=== PATIENT | female | born 1965 | race Caucasian/White ===

== ENCOUNTER 2022-03-27 12:27 | Emergency (ER) | payer OTHER ==
[2022-03-27] MEDS ORDERED: Zofran 4 MG/2 ML VIAL IV ONE (12:49)
[2022-03-27] MEDS ORDERED: Sodium Chloride 0.9% 1000 ML 1,000 ML IV STA (12:49)
[2022-03-27] MEDS ORDERED: MORPHINE SULFATE 4 MG INJ IV ONE (12:49)
[2022-03-27] MEDS ORDERED: MORPHINE SULFATE 4 MG INJ ONE (12:55)
[2022-03-27] MEDS ORDERED: Zofran 4 MG/2 ML VIAL ONE (12:55)
[2022-03-27] MEDS ORDERED: Sodium Chloride 0.9% 1000 ML 1,000 ML ONE (12:55)
[2022-03-27 12:59] LABS: Absolute Neutrophil Ct (ANC) 3.51 x10^3/uL (1.4-6.9); Basophil (Absolute #) 0.06 x10^3/uL (0-0.4); Eosinophil (Absolute #) 0.15 x10^3/uL (0-0.5); Hematocrit 40.9 % (35-47); Hemoglobin 13.5 g/dL (12.0-16.0); Lymphocytes % 42.4 % (24.0-44.0); Mean Cell Volume 93.8 fL (78-100); Mean Platelet Volume 8.7 fL (7.5-11.0); Monocyte (Absolute #) 0.61 x10^3/uL (0.0-1.3); Monocytes % 8.1 % (0.0-12.0); Neutrophil % 46.6 % (36.0-66.0); Platelet Count 344 x10^3/uL (150-450); Red Blood Count 4.36 x10^6/uL (4.1-5.4); Red Cell Distribution Width 11.8 % (11.5-14.0); White Blood Count 7.5 x10^3/uL (4.0-10.5)
[2022-03-27 13:13] LABS: ALBUMIN 4.9 g/dL (3.5-5.0); ALKALINE PHOSPHATASE 83 U/L (38-126); ANION GAP 19.8 MEQ/L (5-15); BLOOD UREA NITROGEN 13 mg/dL (7-17); CHLORIDE 105 mmol/L (98-107); Calcium 9.8 mg/dL (8.4-10.2); Carbon Dioxide 21 mmol/L (22-30); Creatinine 1 0.75 mg/dL (0.52-1.04); EST GLOMERULAR FILTRATION RATE > 60.0 ML/MIN; Glucose 154 mg/dL (74-106); LIPASE 82 U/L (23-300); Potassium 4.4 mmol/L (3.5-5.1); SGOT/AST 30 U/L (14-36); SGPT/ALT 23 U/L (0-35); SODIUM 142 mmol/L (137-145); Total Protein 7.9 g/dL (6.3-8.2)
--- NOTE | 2022-03-27 13:27 | XRAY ---
Indication: Left upper abdomen pain. Multiple contiguous axial images obtained through the abdomen and pelvis without contrast. Comparison: None Lung bases demonstrates minimal bilateral dependent atelectasis and tiny lingula calcified granuloma. Heart not enlarged. Stomach distended with food/fluid. Noncontrasted stomach and bowel loops appear nonobstructed with normal appendix. Mild diffuse scattered colonic fecal debris throughout, greatest in the right hemicolon. Minimal sigmoid diverticulosis without diverticulitis. Gallbladder demonstrates at least 3 stones, largest 1.3 cm. Nonobstructing right renal punctate calculus and tiny hepatic/splenic calcified granulomas. No free fluid/air. Remaining liver, gallbladder, pancreas, spleen, adrenal glands, kidneys, ureters, and bladder are unremarkable for noncontrast exam. Mild scattered aortoiliac calcifications without AAA. Osseous structures intact with minimal degenerative changes throughout the thoracolumbar spine. No ventral or inguinal hernias. Impression: 1. Cholelithiasis better evaluated with sonogram if clinically warranted. 2. Mild diffuse fecal stasis, sigmoid diverticulosis, arteriosclerotic disease, degenerative spondylosis, and old granulomatous disease. 3. Remaining CT abdomen/pelvis without contrast exam is negative.
[2022-03-27 14:20] LABS: Bacteria RARE /HPF (NEGATIVE); WBC 0-2 /HPF (0-5)
[2022-03-27 14:21] LABS: Appearance CLEAR (CLEAR); Bilirubin NEGATIVE (NEGATIVE); Glucose NEGATIVE (NEGATIVE); Ketones NEGATIVE (NEGATIVE); Nitrite NEGATIVE (NEGATIVE); Ph 5.5 (5-6); Protein,Urine Dip NEGATIVE (Negative); RBC NEGATIVE Ery/ul (0-5); Specific Gravity >=1.030 (1.005-1.025); Urine Cultured Indicated? NO; Urobilinogen 0.2 mg/dL (0-1)
[2022-03-27 14:22] LABS: Dipstick done @ ? MAIN LAB
--- NOTE | 2022-03-27 14:44 | ERPHSYRPT ---
- History of Present Illness Time Seen by Provider: 03/27/22 12:34 Historian: patient Exam Limitations: no limitations Patient Subjective Stated Complaint: pt here for abd pain to upper left side off and on for a week Triage Nursing Assessment: pt alert, walked in, resp easy skin w/d/p, abd soft , face mask in place, had normal bm yesterday, voiding well, no n/v Physician History: 56 years old incarcerated female presented to the ER with chief complaint of left upper quadrant/flank rib 28-year-old third almost 30 minutes prior to arrival, constant moderate to severe sharp nonradiating with associated nausea but no vomiting diarrhea or constipation. Also report having off-and-on pain on the left side for almost 1 week. No fever or chills reported. Timing/Duration: today, constant, sudden, worse Activities at Onset: rest Quality: sharpness Abdominal Pain Onset Location: LUQ, flank Pain Radiation: no radiation Severity of Pain-Max: severe Severity of Pain-Current: severe Modifying Factors: Improves With: nothing Associated Symptoms: nausea Previous symptoms: same symptoms as today Allergies/Adverse Reactions: aspirin Allergy (Verified 03/27/22 12:40) gabapentin Allergy (Verified 03/27/22 12:40) naproxen Allergy (Verified 03/27/22 12:40) Penicillins Allergy (Verified 03/27/22 12:40) Hx Tetanus, Diphtheria Vaccination/Date Given: No Hx Influenza Vaccination/Date Given: Yes Hx Pneumococcal Vaccination/Date Given: Yes Immunizations Up to Date: Yes Travel Risk - International Travel Have you traveled outside of the country in past 3 weeks: No - Coronavirus Screening Are you exhibiting any of the following symptoms?: No Close contact with a COVID-19 positive Pt in past 14-21 Days: No - Vaccine Status Have you recieved a Covid-19 vaccination: No - Review of Systems Constitutional: No Symptoms Eyes: No Symptoms Ears, Nose, & Throat: No Symptoms Respiratory: No Symptoms Cardiac: No Symptoms Abdominal/Gastrointestinal: Abdominal Pain, Nausea Genitourinary Symptoms: No Symptoms Musculoskeletal: No Symptoms Skin: No Symptoms Neurological: No Symptoms Endocrine: No Symptoms Hematologic/Lymphatic: No Symptoms Immunological/Allergic: No Symptoms - Past Medical History Pertinent Past Medical History: Yes ENT History: Other Cardiac History: Hypertension Respiratory History: Asthma, COPD Other Medical History: cancer tongue, breast and urterin - Past Surgical History Past Surgical History: Yes Musculoskeletal: Orthopedic Surgery Female Surgical History: Hysterectomy Other Surgical History: knee , lumpectomy - Social History Smoking Status: Former smoker Exposure to second hand smoke: No Drug Use: none Patient Lives Alone: No (longterm) - Nursing Vital Signs Nursing Vital Signs: Initial Vital Signs Temperature 97.6 F 03/27/22 12:36 Pulse Rate 107 H 03/27/22 12:36 Respiratory Rate 18 03/27/22 12:36 Blood Pressure 111/89 03/27/22 12:36 O2 Sat by Pulse Oximetry 98 03/27/22 12:36 Pain Scale Pain Intensity 5 - Physical Exam General Appearance: no apparent distress, alert Eye Exam: PERRL/EOMI Ears, Nose, Throat Exam: normal ENT inspection Neck Exam: normal inspection, full range of motion Respiratory Exam: normal breath sounds, lungs clear Cardiovascular Exam: regular rate/rhythm, normal heart sounds Gastrointestinal/Abdomen Exam: soft, normal bowel sounds, tenderness (Left upper quadrant/flank), other (Negative Curiel sign) Back Exam: normal inspection, normal range of motion, No CVA tenderness Extremity Exam: normal inspection, normal range of motion Neurologic Exam: alert, oriented x 3, cooperative Skin Exam: normal color SpO2 Interpretation: normal SpO2: 96 O2 Delivery: Room Air Ordered Tests: Active Orders 24 hr Category Date Time Status IV Insertion STAT Care 03/27/22 12:49 Active NPO (ED) STAT Care 03/27/22 12:49 Active ABDOMEN AND PELVIS W/0 CONTRAS [CT] Stat Exams 03/27/22 13:11 Completed CBC W DIFF Stat Lab 03/27/22 12:58 Completed CMP Stat Lab 03/27/22 12:58 Completed LIPASE Stat Lab 03/27/22 12:58 Completed TROPONIN Q3H Lab 03/27/22 12:58 Completed TROPONIN Q3H Lab 03/27/22 16:00 Ordered TROPONIN Q3H Lab 03/27/22 19:00 Ordered TROPONIN Q3H Lab 03/27/22 22:00 Ordered TROPONIN Q3H Lab 03/28/22 01:00 Ordered UA W/RFX CULTURE Stat Lab 03/27/22 12:58 Completed Medication Summary Discontinued Medications Generic Name Dose Route Start Last Admin Trade Name Freq PRN Reason Stop Dose Admin Sodium Chloride 1,000 mls @ 999 mls/hr 03/27/22 12:49 03/27/22 14:01 Sodium Chloride 0.9% 1000 Ml IV 03/27/22 13:49 Infused .Q1H1M STA Infusion Sodium Chloride Confirm 03/27/22 12:55 Sodium Chloride 0.9% 1000 Ml Administered 03/27/22 12:56 Dose 1,000 mls @ ud .ROUTE .STK-MED ONE Morphine Sulfate 4 mg 03/27/22 12:49 03/27/22 12:56 Morphine Sulfate 4 Mg/Ml Injection IV 03/27/22 12:50 4 mg STAT ONE Administration Morphine Sulfate Confirm 03/27/22 12:55 Morphine Sulfate 4 Mg/Ml Injection Administered 03/27/22 12:56 Dose 4 mg .ROUTE .STK-MED ONE Ondansetron HCl 4 mg 03/27/22 12:49 03/27/22 12:57 Ondansetron Hcl 4 Mg/2 Ml Vial IV 03/27/22 12:50 4 mg STAT ONE Administration Ondansetron HCl Confirm 03/27/22 12:55 Ondansetron Hcl 4 Mg/2 Ml Vial Administered 03/27/22 12:56 Dose 4 mg .ROUTE .STK-MED ONE Lab/Rad Data: Laboratory Result Diagrams 03/27/22 12:58 03/27/22 12:58 Laboratory Results 03/27/22 03/27/22 03/27/22 Range/Units 12:58 12:58 12:58 WBC (4.0-10.5) x10^3/uL RBC (4.1-5.4) x10^6/uL Hgb (12.0-16.0) g/dL Hct (35-47) % MCV (78-100) fL MCH (26-32) pg MCHC (32-36) g/dL RDW (11.5-14.0) % Plt Count (150-450) x10^3/uL MPV (7.5-11.0) fL Gran % (36.0-66.0) % Immature Gran % (Auto) (0.00-0.4) % Nucleat RBC Rel Count (0.00-0.1) % Eos # (Auto) (0-0.5) x10^3/uL Immature Gran # (Auto) (0.00-0.03) x10^3u/L Absolute Lymphs (auto) (1.0-4.6) x10^3/uL Absolute Monos (auto) (0.0-1.3) x10^3/uL Absolute Nucleated RBC (0.00-0.01) x10^3u/L Lymphocytes % (24.0-44.0) % Monocytes % (0.0-12.0) % Eosinophils % (0.00-5.0) % Basophils % (0.0-0.4) % Absolute Granulocytes (1.4-6.9) x10^3/uL Basophils # (0-0.4) x10^3/uL Sodium 142 (137-145) mmol/L Potassium 4.4 (3.5-5.1) mmol/L Chloride 105 (98-107) mmol/L Carbon Dioxide 21 L (22-30) mmol/L Anion Gap 19.8 H (5-15) MEQ/L BUN 13 (7-17) mg/dL Creatinine 0.75 (0.52-1.04) mg/dL Estimated GFR > 60.0 ML/MIN Glucose 154 H (74-106) mg/dL Calcium 9.8 (8.4-10.2) mg/dL Total Bilirubin 0.70 (0.2-1.3) mg/dL AST 30 (14-36) U/L ALT 23 (0-35) U/L Alkaline Phosphatase 83 (38-126) U/L Troponin I < 0.012 (0.000-0.034) ng/mL Serum Total Protein 7.9 (6.3-8.2) g/dL Albumin 4.9 (3.5-5.0) g/dL Lipase 82 (23-300) U/L Urinalys Dipstick Clnc MAIN LAB Urine Color YELLOW (YELLOW) Urine Appearance CLEAR (CLEAR) Urine pH 5.5 (5-6) Ur Specific Latty >=1.030 (1.005-1.025) POC Urine Protein Conf NEGATIVE (Negative) Urine Ketones NEGATIVE (NEGATIVE) Urine Nitrite NEGATIVE (NEGATIVE) Urine Bilirubin NEGATIVE (NEGATIVE) Urine Urobilinogen 0.2 (0-1) mg/dL Urine Leukocytes NEGATIVE (NEGATIVE) Urine WBC (Auto) 0-2 (0-5) /HPF Urine RBC (Auto) 3-5 (0-2) /HPF U Epithel Cells (Auto) NONE (FEW) /HPF Urine Bacteria (Auto) RARE (NEGATIVE) /HPF Urine RBC NEGATIVE (0-5) Brody/ul Ur Culture Indicated? NO Urine Glucose NEGATIVE (NEGATIVE) mg/dL 03/27/22 Range/Units 12:58 WBC 7.5 (4.0-10.5) x10^3/uL RBC 4.36 (4.1-5.4) x10^6/uL Hgb 13.5 (12.0-16.0) g/dL Hct 40.9 (35-47) % MCV 93.8 (78-100) fL MCH 31.0 (26-32) pg MCHC 33.0 (32-36) g/dL RDW 11.8 (11.5-14.0) % Plt Count 344 (150-450) x10^3/uL MPV 8.7 (7.5-11.0) fL Gran % 46.6 (36.0-66.0) % Immature Gran % (Auto) 0.1 (0.00-0.4) % Nucleat RBC Rel Count 0.0 (0.00-0.1) % Eos # (Auto) 0.15 (0-0.5) x10^3/uL Immature Gran # (Auto) 0.01 (0.00-0.03) x10^3u/L Absolute Lymphs (auto) 3.20 (1.0-4.6) x10^3/uL Absolute Monos (auto) 0.61 (0.0-1.3) x10^3/uL Absolute Nucleated RBC 0.00 (0.00-0.01) x10^3u/L Lymphocytes % 42.4 (24.0-44.0) % Monocytes % 8.1 (0.0-12.0) % Eosinophils % 2.0 (0.00-5.0) % Basophils % 0.8 (0.0-0.4) % Absolute Granulocytes 3.51 (1.4-6.9) x10^3/uL Basophils # 0.06 (0-0.4) x10^3/uL Sodium (137-145) mmol/L Potassium (3.5-5.1) mmol/L Chloride (98-107) mmol/L Carbon Dioxide (22-30) mmol/L Anion Gap (5-15) MEQ/L BUN (7-17) mg/dL Creatinine (0.52-1.04) mg/dL Estimated GFR ML/MIN Glucose (74-106) mg/dL Calcium (8.4-10.2) mg/dL Total Bilirubin (0.2-1.3) mg/dL AST (14-36) U/L ALT (0-35) U/L Alkaline Phosphatase (38-126) U/L Troponin I (0.000-0.034) ng/mL Serum Total Protein (6.3-8.2) g/dL Albumin (3.5-5.0) g/dL Lipase (23-300) U/L Urinalys Dipstick Clnc Urine Color (YELLOW) Urine Appearance (CLEAR) Urine pH (5-6) Ur Specific Latty (1.005-1.025) POC Urine Protein Conf (Negative) Urine Ketones (NEGATIVE) Urine Nitrite (NEGATIVE) Urine Bilirubin (NEGATIVE) Urine Urobilinogen (0-1) mg/dL Urine Leukocytes (NEGATIVE) Urine WBC (Auto) (0-5) /HPF Urine RBC (Auto) (0-2) /HPF U Epithel Cells (Auto) (FEW) /HPF Urine Bacteria (Auto) (NEGATIVE) /HPF Urine RBC (0-5) Brody/ul Ur Culture Indicated? Urine Glucose (NEGATIVE) mg/dL - Progress Progress: improved Progress Note: 03/27/22 14:42 She is given fluids and morphine for symptomatic relief, on reevaluation feeling much better and no peritoneal signs. Normal white count, chemistry profile grossly unremarkable except for some element of dehydration. No UTI. CT did show cholelithiasis but does not have any tenderness on the right side or epigastrium. Liver enzymes normal. CT did show some element of constipation but no other acute findings. Recommended MiraLAX discussed side effect of the worsening needing return to ER which he seems understanding. Stable for discharge. Counseled pt/family regarding: lab results, diagnosis, need for follow-up, rad results - Departure Departure Disposition: Home Clinical Impression: Left sided abdominal pain, Constipation Condition: Stable Critical Care Time: No Referrals: MONY CHONG MD [Primary Care Provider] - Follow Up with PCP/3 days Instructions: Acute Abdomen (Belly Pain), Adult (DC) Additional Instructions: Take Tylenol/ibuprofen as needed. Take daily MiraLAX/stool softener. Increase fiber in diet and can take fiber supplements. Return to ER for intractable abdominal pain/vomiting/fever chills etc. Prescriptions: Polyethylene Glycol 3350 17 gm [Miralax Powder 17GM PACKET] 17 gm PO DAILY #30 packet
[2022-03-27 14:56] VITALS: BP 167/98; PULSE 98; O2SAT 98
== END 2022-03-27 14:57 | disposition home or self-care (01) ==
LOC: ED 12:27
DX: K59.00 Constipation, unspecified (principal); R10.12 Left upper quadrant pain; R11.0 Nausea; I10 Essential (primary) hypertension; J44.9 Chronic obstructive pulmonary disease, unspecified; Z28.310 Unvaccinated for COVID-19
CPT/HCPCS: 36000; 36415; 74176; 80053; 81015; 83690; 84484; 85025; 96360; 96374; 96375; 99284; J2270; J2405

== ENCOUNTER 2022-07-20 11:14 | Emergency (ER) | payer OTHER ==
--- NOTE | 2022-07-20 11:16 | ERPHSYRPT ---
- History of Present Illness Time Seen by Provider: 07/20/22 11:16 Source: patient, police Exam Limitations: clinical condition Physician History: This is an obese 56-year-old white female has a history of asthma and COPD as well as hypertension who began having worsening shortness of breath since yesterday. Patient was brought to the emergency department via EMS. Patient was treated with DuoNeb and intravenous Solu-Medrol. Patient's room air oxygen level when they first arrived was 87%. 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 She does not have significant chest pain. She has no abdominal pain. She has not had fevers. Timing/Duration: yesterday Possible Cause: occasional episodes Modifying Factors: Improves With: coughing Associated Symptoms: cough, wheezing, No chest pain/discomfort Allergies/Adverse Reactions: aspirin Allergy (Verified 07/20/22 11:19) gabapentin Allergy (Verified 07/20/22 11:19) naproxen Allergy (Verified 07/20/22 11:19) Penicillins Allergy (Verified 07/20/22 11:19) Hx Tetanus, Diphtheria Vaccination/Date Given: No Hx Influenza Vaccination/Date Given: Yes Hx Pneumococcal Vaccination/Date Given: Yes Travel Risk - International Travel Have you traveled outside of the country in past 3 weeks: No - Coronavirus Screening Are you exhibiting any of the following symptoms?: Yes Symptoms: Cough: New Onset, Shortness of Breath Close contact with a COVID-19 positive Pt in past 14-21 Days: No - Vaccine Status Have you recieved a Covid-19 vaccination: No - Review of Systems Constitutional: Weakness Eyes: No Symptoms Ears, Nose, & Throat: No Symptoms Respiratory: Cough, Dyspnea Cardiac: No Symptoms Abdominal/Gastrointestinal: No Symptoms Genitourinary Symptoms: No Symptoms Musculoskeletal: No Symptoms Skin: No Symptoms Neurological: No Symptoms Psychological: No Symptoms Endocrine: No Symptoms Hematologic/Lymphatic: No Symptoms Immunological/Allergic: No Symptoms All Other Systems: Reviewed and Negative - Past Medical History Pertinent Past Medical History: Yes ENT History: Other Cardiac History: Hypertension Respiratory History: Asthma, COPD Other Medical History: cancer tongue, breast and urterin - Past Surgical History Past Surgical History: Yes Musculoskeletal: Orthopedic Surgery Female Surgical History: Hysterectomy Other Surgical History: knee , lumpectomy - Social History Smoking Status: Former smoker Exposure to second hand smoke: No Drug Use: none Patient Lives Alone: No (residential) - Nursing Vital Signs Nursing Vital Signs: Initial Vital Signs Temperature 97.5 F 07/20/22 11:22 Pulse Rate 69 07/20/22 11:22 Respiratory Rate 17 07/20/22 11:22 Blood Pressure 125/100 07/20/22 11:22 O2 Sat by Pulse Oximetry 99 07/20/22 11:22 Pain Scale Pain Intensity 10 - Physical Exam General Appearance: no apparent distress, alert, anxiety, obese Eye Exam: PERRL/EOMI, eyes nml inspection Ears, Nose, Throat Exam: hearing grossly normal, normal ENT inspection, normal pharynx Neck Exam: normal inspection, non-tender, supple, full range of motion Respiratory Exam: normal breath sounds, lungs clear, airway intact, No chest tenderness, No respiratory distress Cardiovascular/Chest Exam: normal heart sounds, regular rate/rhythm Abdominal/Gastrointestinal Exam: soft, normal bowel sounds, No tenderness Rectal Exam: not done Extremity Exam: non-tender, normal range of motion, normal inspection, normal capillary refill, no calf tenderness, no pedal edema, pelvis stable Neurologic Exam: alert, oriented x 3, 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, 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, n ormal mood/affect Skin Exam: normal color, warm, dry Lymphatic Exam: No adenopathy SpO2 Interpretation: normal Ordered Tests: Active Orders 24 hr Category Date Time Status EKG-ER Only STAT Care 07/20/22 11:39 Active IV Insertion STAT Care 07/20/22 11:39 Active Pulse Oximetry (ED) STAT Care 07/20/22 11:39 Active CHEST 1 VIEW (PORTABLE) Stat Exams 07/20/22 11:40 Completed BLOOD CULTURE Stat Lab 07/20/22 12:07 Received CBC W DIFF Stat Lab 07/20/22 12:17 Completed CMP Stat Lab 07/20/22 12:17 Completed D-DIMER QUANTITATIVE Stat Lab 07/20/22 12:17 Completed Lactic Acid Stat Lab 07/20/22 12:05 Completed NT PRO BNP Stat Lab 07/20/22 12:17 Completed TROPONIN Q4H Lab 07/20/22 12:17 Completed TROPONIN Q4H Lab 07/20/22 15:45 Ordered TROPONIN Q4H Lab 07/20/22 19:45 Ordered Lab/Rad Data: Laboratory Result Diagrams 07/20/22 12:17 07/20/22 12:17 Laboratory Results 07/20/22 07/20/22 07/20/22 Range/Units 12:25 12:17 12:17 WBC (4.0-10.5) x10^3/uL RBC (4.1-5.4) x10^6/uL Hgb (12.0-16.0) g/dL Hct (35-47) % MCV (78-100) fL MCH (26-32) pg MCHC (32-36) g/dL RDW (11.5-14.0) % Plt Count (150-450) x10^3/uL MPV (7.5-11.0) fL Gran % (36.0-66.0) % Immature Gran % (Auto) (0.00-0.4) % Nucleat RBC Rel Count (0.00-0.1) % Eos # (Auto) (0-0.5) x10^3/uL Immature Gran # (Auto) (0.00-0.03) x10^3u/L Absolute Lymphs (auto) (1.0-4.6) x10^3/uL Absolute Monos (auto) (0.0-1.3) x10^3/uL Absolute Nucleated RBC (0.00-0.01) x10^3u/L Lymphocytes % (24.0-44.0) % Monocytes % (0.0-12.0) % Eosinophils % (0.00-5.0) % Basophils % (0.0-0.4) % Absolute Granulocytes (1.4-6.9) x10^3/uL Basophils # (0-0.4) x10^3/uL D-Dimer < 0.19 (0.0-0.50) mg/L Sodium (137-145) mmol/L Potassium (3.5-5.1) mmol/L Chloride (98-107) mmol/L Carbon Dioxide (22-30) mmol/L Anion Gap (5-15) MEQ/L BUN (7-17) mg/dL Creatinine (0.52-1.04) mg/dL Estimated GFR ML/MIN Glucose (74-106) mg/dL Lactic Acid (0.4-2.0) Calcium (8.4-10.2) mg/dL Total Bilirubin (0.2-1.3) mg/dL AST (14-36) U/L ALT (0-35) U/L Alkaline Phosphatase (38-126) U/L Troponin I < 0.012 (0.000-0.034) ng/mL NT-Pro-B Natriuret Pep (0-900) pg/mL Serum Total Protein (6.3-8.2) g/dL Albumin (3.5-5.0) g/dL Influenza Type A Ag NEGATIVE (NEGATIVE) Influenza Type B Ag NEGATIVE (NEGATIVE) RSV (PCR) NEGATIVE (Negative) SARS-CoV-2 (PCR) NEGATIVE (NEGATIVE) 07/20/22 07/20/22 07/20/22 Range/Units 12:17 12:17 12:05 WBC 5.6 (4.0-10.5) x10^3/uL RBC 4.36 (4.1-5.4) x10^6/uL Hgb 13.4 (12.0-16.0) g/dL Hct 44.6 (35-47) % MCV 102.3 H (78-100) fL MCH 30.7 (26-32) pg MCHC 30.0 L (32-36) g/dL RDW 11.9 (11.5-14.0) % Plt Count 148 L (150-450) x10^3/uL MPV 9.6 (7.5-11.0) fL Gran % 54.6 (36.0-66.0) % Immature Gran % (Auto) 0.2 (0.00-0.4) % Nucleat RBC Rel Count 0.0 (0.00-0.1) % Eos # (Auto) 0.16 (0-0.5) x10^3/uL Immature Gran # (Auto) 0.01 (0.00-0.03) x10^3u/L Absolute Lymphs (auto) 1.92 (1.0-4.6) x10^3/uL Absolute Monos (auto) 0.41 (0.0-1.3) x10^3/uL Absolute Nucleated RBC 0.00 (0.00-0.01) x10^3u/L Lymphocytes % 34.2 (24.0-44.0) % Monocytes % 7.3 (0.0-12.0) % Eosinophils % 2.8 (0.00-5.0) % Basophils % 0.9 (0.0-0.4) % Absolute Granulocytes 3.07 (1.4-6.9) x10^3/uL Basophils # 0.05 (0-0.4) x10^3/uL D-Dimer (0.0-0.50) mg/L Sodium 138 (137-145) mmol/L Potassium 4.6 (3.5-5.1) mmol/L Chloride 104 (98-107) mmol/L Carbon Dioxide 27 (22-30) mmol/L Anion Gap 11.9 (5-15) MEQ/L BUN 11 (7-17) mg/dL Creatinine 0.64 (0.52-1.04) mg/dL Estimated GFR > 60.0 ML/MIN Glucose 117 H (74-106) mg/dL Lactic Acid 2.4 H (0.4-2.0) Calcium 8.9 (8.4-10.2) mg/dL Total Bilirubin 0.80 (0.2-1.3) mg/dL AST 26 (14-36) U/L ALT 26 (0-35) U/L Alkaline Phosphatase 70 (38-126) U/L Troponin I (0.000-0.034) ng/mL NT-Pro-B Natriuret Pep 220 (0-900) pg/mL Serum Total Protein 7.2 (6.3-8.2) g/dL Albumin 4.5 (3.5-5.0) g/dL Influenza Type A Ag (NEGATIVE) Influenza Type B Ag (NEGATIVE) RSV (PCR) (Negative) SARS-CoV-2 (PCR) (NEGATIVE) - Progress Progress: improved Air Movement: good Progress Note: 07/20/22 13:10 Chest x-ray is nonacute. Counseled pt/family regarding: lab results, diagnosis, need for follow-up, rad results - Departure Departure Disposition: Home Clinical Impression: COPD exacerbation Condition: Stable Critical Care Time: No Referrals: MONY CHONG MD [Primary Care Provider] - Follow up/PCP as directed Instructions: Chronic Obstructive Pulmonary Disease Additional Instructions: Continue steroids as prescribed. Continue your nebulizer and inhaler treatments. Prescriptions: Prednisone 10 mg [Deltasone 10 mg] 10 mg PO TID #12 tablet
--- NOTE | 2022-07-20 11:56 | XRAY ---
Indication: Cough and short of breath. Comparison: September 25, 2013 Portable chest less inflated accentuating cardiopulmonary structures. No focal infiltrate, consolidation, or large effusion. Heart not enlarged again with hilar calcified nodes. Bony thorax intact again with osteopenia and degenerative changes. Impression: Continued nonacute chest with chronic features.
[2022-07-20 12:36] LABS: Absolute Neutrophil Ct (ANC) 3.07 x10^3/uL (1.4-6.9); Basophil (Absolute #) 0.05 x10^3/uL (0-0.4); Eosinophil % 2.8 % (0.00-5.0); Eosinophil (Absolute #) 0.16 x10^3/uL (0-0.5); Hematocrit 44.6 % (35-47); Hemoglobin 13.4 g/dL (12.0-16.0); Lymphocyte (Absolute #) 1.92 x10^3/uL (1.0-4.6); Lymphocytes % 34.2 % (24.0-44.0); Mean Cell Volume 102.3 fL (78-100); Mean Corpuscular Hemoglobin 30.7 pg (26-32); Mean Platelet Volume 9.6 fL (7.5-11.0); Monocyte (Absolute #) 0.41 x10^3/uL (0.0-1.3); Monocytes % 7.3 % (0.0-12.0); Neutrophil % 54.6 % (36.0-66.0); Platelet Count 148 x10^3/uL (150-450); Red Blood Count 4.36 x10^6/uL (4.1-5.4); Red Cell Distribution Width 11.9 % (11.5-14.0); White Blood Count 5.6 x10^3/uL (4.0-10.5)
[2022-07-20 12:54] LABS: ALBUMIN 4.5 g/dL (3.5-5.0); ALKALINE PHOSPHATASE 70 U/L (38-126); ANION GAP 11.9 MEQ/L (5-15); BLOOD UREA NITROGEN 11 mg/dL (7-17); CHLORIDE 104 mmol/L (98-107); Calcium 8.9 mg/dL (8.4-10.2); Carbon Dioxide 27 mmol/L (22-30); Creatinine 1 0.64 mg/dL (0.52-1.04); EST GLOMERULAR FILTRATION RATE > 60.0 ML/MIN; Glucose 117 mg/dL (74-106); NT PRO BNP 220 pg/mL (0-900); Potassium 4.6 mmol/L (3.5-5.1); SGOT/AST 26 U/L (14-36); SGPT/ALT 26 U/L (0-35); SODIUM 138 mmol/L (137-145); Total Protein 7.2 g/dL (6.3-8.2)
[2022-07-20 13:04] LABS: INFLUENZA A NEGATIVE (NEGATIVE); INFLUENZA B NEGATIVE (NEGATIVE); RESPIRATORY SYNCTIAL VIRUS NEGATIVE (Negative); SARS-CoV-2 Xpert Express NEGATIVE (NEGATIVE)
[2022-07-20 14:26] VITALS: BP 132/79; PULSE 60; O2SAT 95
== END 2022-07-20 14:26 | disposition home or self-care (01) ==
LOC: ED 11:14
DX: J44.1 Chronic obstructive pulmonary disease with (acute) exacerbation (principal); R06.02 Shortness of breath; I10 Essential (primary) hypertension; Z79.52 Long term (current) use of systemic steroids; Z28.310 Unvaccinated for COVID-19
CPT/HCPCS: 0241U; 36415; 71045; 80053; 83605; 83880; 84484; 85025; 85379; 87040; 93005; 94760; 99284

== ENCOUNTER 2022-07-30 23:56 | Emergency (ER) | payer OTHER ==
[2022-07-31] MEDS ORDERED: solu-MEDROL 125 MG, Sterile H2O 10 ml 2 ML IV ONE ×2 (00:05)
[2022-07-31] MEDS ORDERED: DUONEB 0.5-3 MG/3 ml Neb IH ONE ×2 (00:05)
[2022-07-31] MEDS ORDERED: Magnesium Sulfate 1 GM/2 ML VIAL ONE (00:06)
[2022-07-31] MEDS ORDERED: Epinephrine Preservative Free 1 MG/ML ONE (00:06)
[2022-07-31] MEDS ORDERED: Sterile H2O 10 ml IJ ONE (00:06)
[2022-07-31] MEDS ORDERED: solu-MEDROL ONE (00:06)
[2022-07-31] MEDS ORDERED: BRETHINE 1 MG/ML SQ ONE (00:09)
[2022-07-31] MEDS ORDERED: PROVENTIL 2.5 MG/3 ML NEB IH ONE ×3 (00:20→00:36)
[2022-07-31] MEDS ORDERED: BRETHINE 1 MG/ML ONE (00:24)
--- NOTE | 2022-07-31 00:25 | ERPHSYRPT ---
- History of Present Illness Time Seen by Provider: 07/31/22 00:18 Source: patient Exam Limitations: no limitations Physician History: Patient is a 56-year-old female [facility] inmate presents to our ED via EMS for evaluation of asthma exacerbation. Patient arrived and severe shortness of breath. Patient was in respiratory distress. She was coughing. DuoNeb in route. Patient states that her [facility] cell was decontaminated for head lice. A chemical was placed in her hair which triggered her asthma. No other symptomology. No chest pain or shortness of breath. No numbness tingling or weakness. Symptoms are moderate to severe in intensity. Suspect chemical cause for exacerbation. Patient voices no other complaints or concerns at this time. Portions of this note were created with voice recognition technology. There may be grammatical, spelling, punctuation or sound alike errors Timing/Duration: today Activities at Onset: none Severity of Dyspnea-Max: severe Severity of Dyspnea-Current: moderate Possible Cause: occasional episodes Modifying Factors: Improves With: activity Associated Symptoms: anxiety, cough, wheezing, No ankle swelling, No calf pain, No productive cough Allergies/Adverse Reactions: aspirin Allergy (Verified 07/31/22 00:13) gabapentin Allergy (Verified 07/31/22 00:13) naproxen Allergy (Verified 07/31/22 00:13) Penicillins Allergy (Verified 07/31/22 00:13) Home Medications: Acetaminophen [Tylenol Extra Strength] 1,000 mg PO BID PRN PRN 07/31/22 [History] Albuterol 8 gm Mdi Hfa [Ventolin Hfa MDI] 2 puffs IH BID PRN PRN 07/31/22 [History] Bisacodyl 5 mg [Dulcolax 5 mg] 1 tab PO HS 07/31/22 [History] Dicyclomine HCl 20 mg [Bentyl 20 mg] 10 mg PO BID 07/31/22 [History] Docusate Sodium 100 mg [Docusate Sodium 100 MG] 1 tab PO DAILY 07/31/22 [History] Fluticasone/Salmeterol [Advair 100-50 Diskus] 2 puffs IH BID 07/31/22 [History] Lisinopril 10 mg [Zestril 10 MG] 1 tab PO HS 07/31/22 [History] Loratadine 10 mg [Claritin 10 mg] 1 tab PO HS 07/31/22 [History] Mirtazapine [Remeron] 15 mg PO HS 07/31/22 [History] Omeprazole Magnesium [Prilosec Otc] 20 mg PO HS 07/31/22 [History] Prazosin HCl 1 mg PO HS 07/31/22 [History] Hx Tetanus, Diphtheria Vaccination/Date Given: No Hx Influenza Vaccination/Date Given: Yes Hx Pneumococcal Vaccination/Date Given: Yes Travel Risk - Vaccine Status Have you recieved a Covid-19 vaccination: No - Review of Systems Constitutional: No Symptoms, No Fever, No Chills Eyes: No Symptoms Ears, Nose, & Throat: No Symptoms Respiratory: No Symptoms, No Cough, No Dyspnea Cardiac: No Symptoms, No Chest Pain, No Edema, No Syncope Abdominal/Gastrointestinal: No Symptoms, No Abdominal Pain, No Nausea, No Vomiting, No Diarrhea Genitourinary Symptoms: No Symptoms, No Dysuria Musculoskeletal: No Symptoms, No Back Pain, No Neck Pain Skin: No Symptoms, No Rash Neurological: No Symptoms, No Dizziness, No Focal Weakness, No Sensory Changes Psychological: No Symptoms Endocrine: No Symptoms Hematologic/Lymphatic: No Symptoms Immunological/Allergic: No Symptoms All Other Systems: Reviewed and Negative - Past Medical History Pertinent Past Medical History: Yes ENT History: Other Cardiac History: Hypertension Respiratory History: Asthma, COPD Other Medical History: cancer tongue, breast and urterin - Past Surgical History Past Surgical History: Yes Musculoskeletal: Orthopedic Surgery Female Surgical History: Hysterectomy Other Surgical History: knee , lumpectomy - Social History Smoking Status: Former smoker Exposure to second hand smoke: No Drug Use: none Patient Lives Alone: No (fpc) - Nursing Vital Signs Nursing Vital Signs: Initial Vital Signs Pulse Rate 113 H 07/31/22 00:00 Respiratory Rate 32 H 07/31/22 00:00 Blood Pressure 98/57 07/31/22 00:00 O2 Sat by Pulse Oximetry 99 07/31/22 00:00 Pain Scale Pain Intensity 2 - Physical Exam General Appearance: no apparent distress, alert Eye Exam: PERRL/EOMI Ears, Nose, Throat Exam: hearing grossly normal, normal ENT inspection, normal pharynx Neck Exam: normal inspection, non-tender, supple, full range of motion Respiratory Exam: respiratory distress, diminished breath sounds, accessory muscle use, wheezing Cardiovascular/Chest Exam: normal heart sounds, regular rate/rhythm Abdominal/Gastrointestinal Exam: soft, No tenderness, No distention, No mass, No guarding Extremity Exam: non-tender, normal range of motion, normal inspection, no calf tenderness, no pedal edema Neurologic Exam: alert, oriented x 3, cooperative, 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 Calcified lymphadenopathy. Intact bony thorax. Normal cardiac silhouette) Ordered Tests: Active Orders 24 hr Category Date Time Status Funeral Director And Embalmer STAT Care 07/31/22 00:06 Active EKG-ER Only STAT Care 07/31/22 00:05 Active IV Insertion STAT Care 07/31/22 00:05 Active Pulse Oximetry (ED) STAT Care 07/31/22 00:05 Active CHEST 1 VIEW (PORTABLE) Stat Exams 07/31/22 00:12 Taken BLOOD CULTURE Stat Lab 07/31/22 00:37 Ordered CBC W DIFF Stat Lab 07/31/22 00:37 Completed CMP Stat Lab 07/31/22 00:37 Completed D-DIMER QUANTITATIVE Stat Lab 07/31/22 00:37 Completed NT PRO BNP Stat Lab 07/31/22 00:37 Completed TROPONIN Q4H Lab 07/31/22 00:37 Completed TROPONIN Q4H Lab 07/31/22 04:15 Ordered TROPONIN Q4H Lab 07/31/22 08:15 Ordered BiPap/CPAP STAT RT 07/31/22 00:35 Active Respiratory Therapy Assessment DAILY RT 07/31/22 00:35 Active Medication Summary Generic Name Dose Route Start Last Admin Trade Name Freq PRN Reason Stop Dose Admin Magnesium Sulfate/Dextrose 100 mls @ 100 mls/hr 07/31/22 01:15 07/31/22 01:46 Magnesium 1 Gm / 100 Ml D5w IV 07/31/22 03:14 100 mls/hr Q1H MELISSA Administration Discontinued Medications Generic Name Dose Route Start Last Admin Trade Name Shashi PRN Reason Stop Dose Admin Albuterol Sulfate Confirm 07/31/22 00:00 Albuterol Sulfate 2.5 Mg/3 Ml Neb Administered 07/31/22 00:01 Dose 2.5 mg IH .STK-MED ONE Albuterol Sulfate Confirm 07/31/22 00:20 Albuterol Sulfate 2.5 Mg/3 Ml Neb Administered 07/31/22 00:21 Dose 2.5 mg IH .STK-MED ONE Albuterol Sulfate 5 mg 07/31/22 00:36 07/31/22 00:26 Albuterol Sulfate 2.5 Mg/3 Ml Neb IH 07/31/22 00:37 5 mg STAT ONE Administration Albuterol/Ipratropium Confirm 07/31/22 00:00 Ipratropium/Albuterol Sulfate 3 Ml Ampul.Neb Administered 07/31/22 00:01 Dose 3 ml IH .STK-MED ONE Albuterol/Ipratropium 3 ml 07/31/22 00:05 07/31/22 00:09 Ipratropium/Albuterol Sulfate 3 Ml Ampul.Neb IH 07/31/22 00:06 3 ml STAT ONE Administration Methylprednisolone Sodium 0 mg 07/31/22 00:05 07/31/22 00:09 Succinate 125 mg/ Sterile IV 07/31/22 00:06 125 mg Water 2 ml STAT ONE Administration Epinephrine HCl Confirm 07/31/22 00:06 Epinephrine 1 Mg/Ml Pf Ampule Administered 07/31/22 00:07 Dose 1 mg .ROUTE .STK-MED ONE Magnesium Sulfate Confirm 07/31/22 00:06 Magnesium Sulfate Injection Administered 07/31/22 00:07 Dose 2 gm .ROUTE .STK-MED ONE Methylprednisolone Sodium Succinate Confirm 07/31/22 00:06 Methylprednis Sod Succ 125 Mg/2 Ml Vial Administered 07/31/22 00:07 Dose 125 mg .ROUTE .STK-MED ONE Sterile Water Confirm 07/31/22 00:06 Water For Injection,Sterile 10 Ml Vial Administered 07/31/22 00:07 Dose 10 ml IJ .STK-MED ONE Terbutaline Sulfate 0.25 mg 07/31/22 00:09 07/31/22 00:25 Terbutaline Sulfate 1 Mg/Ml Vial SQ 07/31/22 00:10 0.25 mg STAT ONE Administration Terbutaline Sulfate Confirm 07/31/22 00:24 Terbutaline Sulfate 1 Mg/Ml Vial Administered 07/31/22 00:25 Dose 1 mg .ROUTE .K-MED ONE Lab/Rad Data: Laboratory Result Diagrams 07/31/22 00:37 07/31/22 00:37 Laboratory Results 07/31/22 07/31/22 07/31/22 Range/Units 00:37 00:37 00:37 WBC (4.0-10.5) x10^3/uL RBC (4.1-5.4) x10^6/uL Hgb (12.0-16.0) g/dL Hct (35-47) % MCV (78-100) fL MCH (26-32) pg MCHC (32-36) g/dL RDW (11.5-14.0) % Plt Count (150-450) x10^3/uL MPV (7.5-11.0) fL Gran % (36.0-66.0) % Immature Gran % (Auto) (0.00-0.4) % Nucleat RBC Rel Count (0.00-0.1) % Eos # (Auto) (0-0.5) x10^3/uL Immature Gran # (Auto) (0.00-0.03) x10^3u/L Absolute Lymphs (auto) (1.0-4.6) x10^3/uL Absolute Monos (auto) (0.0-1.3) x10^3/uL Absolute Nucleated RBC (0.00-0.01) x10^3u/L Lymphocytes % (24.0-44.0) % Monocytes % (0.0-12.0) % Eosinophils % (0.00-5.0) % Basophils % (0.0-0.4) % Absolute Granulocytes (1.4-6.9) x10^3/uL Basophils # (0-0.4) x10^3/uL D-Dimer < 0.19 (0.0-0.50) mg/L Sodium 137 (137-145) mmol/L Potassium 3.5 (3.5-5.1) mmol/L Chloride 102 (98-107) mmol/L Carbon Dioxide 22 (22-30) mmol/L Anion Gap 15.8 H (5-15) MEQ/L BUN 13 (7-17) mg/dL Creatinine 0.93 (0.52-1.04) mg/dL Estimated GFR > 60.0 ML/MIN Glucose 172 H (74-106) mg/dL Calcium 8.9 (8.4-10.2) mg/dL Total Bilirubin 0.50 (0.2-1.3) mg/dL AST 27 (14-36) U/L ALT 26 (0-35) U/L Alkaline Phosphatase 70 (38-126) U/L Troponin I < 0.012 (0.000-0.034) ng/mL NT-Pro-B Natriuret Pep 57.8 (0-900) pg/mL Serum Total Protein 7.2 (6.3-8.2) g/dL Albumin 4.5 (3.5-5.0) g/dL 07/31/22 Range/Units 00:37 WBC 9.0 (4.0-10.5) x10^3/uL RBC 4.09 L (4.1-5.4) x10^6/uL Hgb 12.4 (12.0-16.0) g/dL Hct 38.9 (35-47) % MCV 95.1 (78-100) fL MCH 30.3 (26-32) pg MCHC 31.9 L (32-36) g/dL RDW 11.8 (11.5-14.0) % Plt Count 328 (150-450) x10^3/uL MPV 8.5 (7.5-11.0) fL Gran % 44.5 (36.0-66.0) % Immature Gran % (Auto) 0.3 (0.00-0.4) % Nucleat RBC Rel Count 0.0 (0.00-0.1) % Eos # (Auto) 0.09 (0-0.5) x10^3/uL Immature Gran # (Auto) 0.03 (0.00-0.03) x10^3u/L Absolute Lymphs (auto) 3.94 (1.0-4.6) x10^3/uL Absolute Monos (auto) 0.88 (0.0-1.3) x10^3/uL Absolute Nucleated RBC 0.00 (0.00-0.01) x10^3u/L Lymphocytes % 44.0 (24.0-44.0) % Monocytes % 9.8 (0.0-12.0) % Eosinophils % 1.0 (0.00-5.0) % Basophils % 0.4 (0.0-0.4) % Absolute Granulocytes 3.97 (1.4-6.9) x10^3/uL Basophils # 0.04 (0-0.4) x10^3/uL D-Dimer (0.0-0.50) mg/L Sodium (137-145) mmol/L Potassium (3.5-5.1) mmol/L Chloride (98-107) mmol/L Carbon Dioxide (22-30) mmol/L Anion Gap (5-15) MEQ/L BUN (7-17) mg/dL Creatinine (0.52-1.04) mg/dL Estimated GFR ML/MIN Glucose (74-106) mg/dL Calcium (8.4-10.2) mg/dL Total Bilirubin (0.2-1.3) mg/dL AST (14-36) U/L ALT (0-35) U/L Alkaline Phosphatase (38-126) U/L Troponin I (0.000-0.034) ng/mL NT-Pro-B Natriuret Pep (0-900) pg/mL Serum Total Protein (6.3-8.2) g/dL Albumin (3.5-5.0) g/dL - Progress Progress: improved Air Movement: good Progress Note: Patient reassessed. She is resting comfortably. Wheezing resolved. Patient no respiratory distress. Patient ambulated in our ED maintaining normal oxygen saturation. Patient observed for approximately 4 hours. Laboratory work-up unremarkable. Chest x-ray essentially unremarkable. No indication for further work-up at this time. Will discharge home. Portions of this note were created with voice recognition technology. There may be grammatical, spelling, punctuation or sound alike errors 07/31/22 03:52 A prescription for steroids as well as albuterol inhaler was forwarded to patient's pharmacy. 07/31/22 03:54 Blood Culture(s) Obtained: Yes Antibiotics given: No Counseled pt/family regarding: lab results, diagnosis, rad results - Departure Departure Disposition: Home Clinical Impression: Asthma exacerbation Condition: Stable Critical Care Time: No Referrals: MONY CHONG MD [Primary Care Provider] - Follow up/PCP as directed Additional Instructions: Discharge/Care Plan TALHA JIMENEZ was seen on 07/31/22 in the Emergency Room. The patient was counseled regarding Diagnosis,Lab results, Imaging studies, need for follow up and when to return to the Emergency Room. Prescriptions given: Discharge Note I have spoken with the patient and/or caregivers. I have explained the patient's condition, diagnosis and treatment plan based on the information available to me at this time. I have answered the patient's and/or caregiver's questions and addressed any concerns. The patient and/or caregivers have as good understanding of the patient's diagnosis, condition and treatment plan as can be expected at this point. The vital signs have been stable. The patient's condition is stable and appropriate for discharge from the emergency department. The patient will pursue further outpatient evaluation with the primary care physician or other designated or consulting physician as outlined in the discharge instructions. The patient and/or caregivers are agreeable to this plan of care and follow-up instructions have been explained in detail. The patient and/or caregivers have received these instruction. The patient/and or caregivers are aware that any significant change in condition or worsening of symptoms should prompt an immediate return to this or the closest emergency department or call 911. Prescriptions: Prednisone 10 mg [Deltasone 10 mg] 40 mg PO DAILY 3 Days #12 tablet Albuterol Common Canister [Ventolin Common Canister] 2 puff IH Q4-6HPRN PRN 7 Days #1 unit PRN Reason: Shortness Of Breath/Wheezing
[2022-07-31 00:42] LABS: Absolute Neutrophil Ct (ANC) 3.97 x10^3/uL (1.4-6.9); Basophil (Absolute #) 0.04 x10^3/uL (0-0.4); Eosinophil (Absolute #) 0.09 x10^3/uL (0-0.5); Hematocrit 38.9 % (35-47); Hemoglobin 12.4 g/dL (12.0-16.0); Lymphocyte (Absolute #) 3.94 x10^3/uL (1.0-4.6); Mean Cell Volume 95.1 fL (78-100); Mean Corpuscular Hemoglobin 30.3 pg (26-32); Mean Corpuscular Hgb Concent. 31.9 g/dL (32-36); Mean Platelet Volume 8.5 fL (7.5-11.0); Monocyte (Absolute #) 0.88 x10^3/uL (0.0-1.3); Monocytes % 9.8 % (0.0-12.0); Neutrophil % 44.5 % (36.0-66.0); Platelet Count 328 x10^3/uL (150-450); Red Blood Count 4.09 x10^6/uL (4.1-5.4); Red Cell Distribution Width 11.8 % (11.5-14.0)
[2022-07-31 01:03] LABS: ALBUMIN 4.5 g/dL (3.5-5.0); ALKALINE PHOSPHATASE 70 U/L (38-126); ANION GAP 15.8 MEQ/L (5-15); BLOOD UREA NITROGEN 13 mg/dL (7-17); CHLORIDE 102 mmol/L (98-107); Calcium 8.9 mg/dL (8.4-10.2); Carbon Dioxide 22 mmol/L (22-30); Creatinine 1 0.93 mg/dL (0.52-1.04); EST GLOMERULAR FILTRATION RATE > 60.0 ML/MIN; Glucose 172 mg/dL (74-106); NT PRO BNP 57.8 pg/mL (0-900); Potassium 3.5 mmol/L (3.5-5.1); SGOT/AST 27 U/L (14-36); SGPT/ALT 26 U/L (0-35); SODIUM 137 mmol/L (137-145); Total Protein 7.2 g/dL (6.3-8.2)
[2022-07-31] MEDS ORDERED: Magnesium 1 Gm / 100 Ml D5W*** 200 ML IV ONE (01:13)
[2022-07-31] MEDS: Magnesium 1 Gm / 100 Ml D5W*** 100 ML IV SCH ×2 (01:14→01:46)
[2022-07-31 02:05] VITALS: BP 120/63; PULSE 90
[2022-07-31 02:44] VITALS: O2SAT 99
--- NOTE | 2022-07-31 08:49 | XRAY ---
Indication: Asthma attack. Comparison: May 19, 2022 Portable apical lordotic chest slightly underinflated crowding the lung bases. Remaining heart and lungs unremarkable again with incidental hilar calcified nodes. Bony thorax intact again with osteopenia and degenerative changes. Impression: Nonacute underinflated chest with chronic features.
== END 2022-07-31 04:07 | disposition home or self-care (01) ==
LOC: ED 23:56
DX: J45.901 Unspecified asthma with (acute) exacerbation (principal); J44.9 Chronic obstructive pulmonary disease, unspecified; I10 Essential (primary) hypertension; Z79.899 Other long term (current) drug therapy; Z79.52 Long term (current) use of systemic steroids; Z28.310 Unvaccinated for COVID-19
CPT/HCPCS: 36000; 36415; 71045; 80053; 83880; 84484; 85025; 85379; 87040; 93005; 93041; 94002; 94640; 94760; 96365; 96366; 96372; 96374; 99284; J0171; J2930; J3475; J7609; A9270-GY

== ENCOUNTER 2023-01-19 08:28 | Observation (INO) | payer OTHER ==
[2023-01-19] MEDS ORDERED: solu-MEDROL 125 MG, Sterile H2O 10 ml 2 ML IV ONE ×2 (08:33)
[2023-01-19 08:46] LABS: A-aADO2 119; ABG POTASSIUM 3.6 (3.5-5.1); ARTERIAL BLOOD GAS BASE EXCESS -0.7 (-2.0-2.0); ARTERIAL BLOOD GAS FIO2 44 %; ARTERIAL BLOOD GAS PCO2 29 mmHg (35-45); ARTERIAL BLOOD GAS PO2 158 mmHg (75-100); ARTERIAL BLOOD GAS pH 7.48 (7.35-7.45); HCO3- 21.6 (22-28); HGB O2 SAT 92.5 g/dF (94-100); Lactic Acid 2.8 (0.4-2.0); Methhemoglobin 0.5 % (1.4-1.5); paO2 pAO1 0.57
[2023-01-19 08:47] LABS: ABG SITE LEFT BRACHIAL; CARBOXYHEMOGLOBIN 7.1 % THgb (0.0-6.9)
--- NOTE | 2023-01-19 09:00 | XRAY ---
Indication: Short of breath. COPD and asthma. Comparison: July 31, 2022 Portable chest remains clear. Heart not enlarged again with incidental hilar calcified nodes. Bony thorax intact again with osteopenia and mild degenerative changes. Impression: Continued nonacute chest with chronic features.
--- NOTE | 2023-01-19 09:34 | ERPHSYRPT ---
- History of Present Illness Time Seen by Provider: 01/19/23 08:40 Source: patient, EMS Exam Limitations: no limitations Patient Subjective Stated Complaint: pt here for increase sob for a couple days,no fever, coughing up brown sputum,.co pain to back when coughs, Triage Nursing Assessment: pt alert, anxious at times, resp labored at times, diminished bs , up airway strider Physician History: Patient is a 57-year-old white female longtime heavy smoker who presents with extreme shortness of breath getting worse over the past 2 days. She has been coughing and she continues to smoke. She is quite agitated and anxious upon arrival. Timing/Duration: day(s) (2) Activities at Onset: none Severity of Dyspnea-Max: moderate Severity of Dyspnea-Current: mild Possible Cause: frequent episodes, smoke exposure Modifying Factors: Improves With: albuterol nebulizer Associated Symptoms: anxiety, cough, wheezing Allergies/Adverse Reactions: aspirin Allergy (Verified 01/19/23 08:32) gabapentin Allergy (Verified 01/19/23 08:32) naproxen Allergy (Verified 01/19/23 08:32) Penicillins Allergy (Verified 01/19/23 08:32) Home Medications: Acetaminophen [Tylenol Extra Strength] 1,000 mg PO BID PRN PRN 07/31/22 [History] Albuterol 8 gm Mdi Hfa [Ventolin Hfa MDI] 2 puffs IH BID PRN PRN 07/31/22 [History] Fluticasone/Salmeterol [Advair 100-50 Diskus] 2 puffs IH BID 07/31/22 [History] Lisinopril 10 mg [Zestril 10 MG] 1 tab PO HS 07/31/22 [History] Hx Tetanus, Diphtheria Vaccination/Date Given: No Hx Influenza Vaccination/Date Given: No Hx Pneumococcal Vaccination/Date Given: No Immunizations Up to Date: Yes Travel Risk - International Travel Have you traveled outside of the country in past 3 weeks: No - Coronavirus Screening Are you exhibiting any of the following symptoms?: No - Vaccine Status Have you recieved a Covid-19 vaccination: No - Review of Systems Constitutional: No Fever, No Chills Eyes: No Symptoms Ears, Nose, & Throat: No Symptoms Respiratory: Cough, Dyspnea, Wheezing Cardiac: No Chest Pain, No Edema, No Syncope Abdominal/Gastrointestinal: No Abdominal Pain, No Nausea, No Vomiting, No Diarrhea Genitourinary Symptoms: No Dysuria Musculoskeletal: No Back Pain, No Neck Pain Skin: No Rash Neurological: No Dizziness, No Focal Weakness, No Sensory Changes Psychological: No Symptoms Endocrine: No Symptoms All Other Systems: Reviewed and Negative - Past Medical History Pertinent Past Medical History: Yes ENT History: Other Cardiac History: Hypertension Respiratory History: Asthma, COPD Other Medical History: cancer tongue, breast and urterin - Past Surgical History Past Surgical History: Yes Musculoskeletal: Orthopedic Surgery Female Surgical History: Hysterectomy Other Surgical History: knee , lumpectomy - Social History Smoking Status: Current every day smoker Exposure to second hand smoke: No Drug Use: none Patient Lives Alone: No (senior living) - Nursing Vital Signs Nursing Vital Signs: Initial Vital Signs Temperature 97.6 F 01/19/23 08:33 Pulse Rate 88 01/19/23 08:33 Blood Pressure 156/107 01/19/23 08:33 O2 Sat by Pulse Oximetry 100 01/19/23 08:33 Pain Scale Pain Intensity 10 - Physical Exam General Appearance: moderate distress, alert Eye Exam: PERRL/EOMI Neck Exam: normal inspection, supple Respiratory Exam: respiratory distress, airway intact, crackles/rales, rhonchi, wheezing Cardiovascular/Chest Exam: normal heart sounds, regular rate/rhythm Abdominal/Gastrointestinal Exam: soft, No tenderness, No distention, No mass Extremity Exam: non-tender, normal range of motion, normal inspection, no calf tenderness, no pedal edema Neurologic Exam: alert, oriented x 3, cooperative, y[place] gatherer II-XII nml as tested, sensation nml, No motor deficits Skin Exam: normal color, warm, No dry SpO2 Interpretation: O2 applied SpO2: 97 O2 Delivery: Nasal Cannula (4 L) - Course Nursing assessment & vital signs reviewed: Yes EKG Interpreted by Me: RATE (94), Sinus Rhythm, Left [place] Deviation, NORMAL INTERVALS, Non-specific ST Changes, Other (Poor R wave progression) Rhythm Strip: Rate (94), Normal Sinus Rhythm - Radiology Exams Chest X-ray Interpretation: Reviewed by me, Other (Nonacute chronic changes) Ordered Tests: Active Orders 24 hr Category Date Time Status EKG-ER Only STAT Care 01/19/23 08:33 Active IV Insertion STAT Care 01/19/23 08:33 Active Oxygen-ED Only Nasal Cannula 6 lpm Care 01/19/23 08:33 Active CHEST 1 VIEW (PORTABLE) Stat Exams 01/19/23 08:34 Completed ABG [ARTERIAL BLOOD GASES] Stat Lab 01/19/23 08:33 Completed CBC W DIFF Stat Lab 01/19/23 10:10 Completed CMP Stat Lab 01/19/23 10:10 Completed D-DIMER QUANTITATIVE Stat Lab 01/19/23 10:10 Completed Lactic Acid Stat Lab 01/19/23 08:33 Completed Lactic Acid Stat Lab 01/19/23 10:48 Received NT PRO BNPII Stat Lab 01/19/23 10:10 Completed PROTIME WITH INR Stat Lab 01/19/23 10:10 Completed PTT Stat Lab 01/19/23 10:10 Completed TROPONIN Q4H Lab 01/19/23 10:10 Completed TROPONIN Q4H Lab 01/19/23 12:45 Ordered TROPONIN Q4H Lab 01/19/23 16:45 Ordered UA W/RFX UR CULTURE Stat Lab 01/19/23 08:34 Ordered Medication Summary Discontinued Medications Generic Name Dose Route Start Last Admin Trade Name Freq PRN Reason Stop Dose Admin Methylprednisolone Sodium 0 mg 01/19/23 08:33 01/19/23 09:49 Succinate 125 mg/ Sterile IV 01/19/23 08:34 125 mg Water 2 ml STAT ONE Administration Hydromorphone HCl 1 mg 01/19/23 10:00 01/19/23 10:04 Hydromorphone 1 Mg/1ml Inj 1 Mg/Ml Syringe IV 01/19/23 10:01 1 mg STAT ONE Administration Hydromorphone HCl Confirm 01/19/23 10:02 Hydromorphone 1 Mg/1ml Inj 1 Mg/Ml Syringe Administered 01/19/23 10:03 Dose 1 mg .ROUTE .STK-MED ONE Methylprednisolone Sodium Succinate Confirm 01/19/23 09:47 Methylprednis Sod Succ 125 Mg/2 Ml Vial Administered 01/19/23 09:48 Dose 125 mg .ROUTE .STK-MED ONE Sterile Water Confirm 01/19/23 09:47 Water For Injection,Sterile 10 Ml Vial Administered 01/19/23 09:48 Dose 10 ml IJ .STK-MED ONE Lab/Rad Data: Laboratory Result Diagrams 01/19/23 10:10 01/19/23 10:10 Laboratory Results 01/19/23 01/19/23 01/19/23 Range/Units 10:10 10:10 10:10 WBC (4.0-10.5) x10^3/uL RBC (4.1-5.4) x10^6/uL Hgb (12.0-16.0) g/dL Hct (35-47) % MCV (78-100) fL MCH (26-32) pg MCHC (32-36) g/dL RDW (11.5-14.0) % Plt Count (150-450) x10^3/uL MPV (7.5-11.0) fL Gran % (36.0-66.0) % Immature Gran % (Auto) (0.00-0.4) % Nucleat RBC Rel Count (0.00-0.1) % Eos # (Auto) (0-0.5) x10^3/uL Immature Gran # (Auto) (0.00-0.03) x10^3u/L Absolute Lymphs (auto) (1.0-4.6) x10^3/uL Absolute Monos (auto) (0.0-1.3) x10^3/uL Absolute Nucleated RBC (0.00-0.01) x10^3u/L Lymphocytes % (24.0-44.0) % Monocytes % (0.0-12.0) % Eosinophils % (0.00-5.0) % Basophils % (0.0-0.4) % Absolute Granulocytes (1.4-6.9) x10^3/uL Basophils # (0-0.4) x10^3/uL PT 10.3 (9.4-12.5) SECONDS INR 0.94 (0.8-3.0) APTT 28.3 (25.1-36.5) SECONDS D-Dimer < 0.19 (0.0-0.50) mg/L Puncture Site pCO2 (35-45) mmHg pO2 (75-100) mmHg Base Excess (-2.0-2.0) O2 Saturation (94-100) g/dF ABG pH (7.35-7.45) ABG HCO3 (22-28) ABG O2 Sat (Measured) (95-100) % Carmine Test A-a Gradient a/A Ratio Hemoglobin Carboxyhemoglobin (0.0-6.9) % THgb Methemoglobin (1.4-1.5) % Potassium (3.5-5.1) Temperature C POC O2 Flow Rate % Sodium (137-145) mmol/L Chloride (98-107) mmol/L Carbon Dioxide (22-30) mmol/L Anion Gap (5-15) MEQ/L BUN (7-17) mg/dL Creatinine (0.52-1.04) mg/dL Estimated GFR ML/MIN Glucose (74-106) mg/dL Lactic Acid (0.4-2.0) Calcium (8.4-10.2) mg/dL Total Bilirubin (0.2-1.3) mg/dL AST (14-36) U/L ALT (0-35) U/L Alkaline Phosphatase (38-126) U/L Troponin I 0.013 (0.000-0.034) ng/mL NT-Pro-B Natriuret Pep 163 (<300) pg/mL Serum Total Protein (6.3-8.2) g/dL Albumin (3.5-5.0) g/dL 01/19/23 01/19/23 01/19/23 Range/Units 10:10 10:10 08:33 WBC 8.4 (4.0-10.5) x10^3/uL RBC 4.61 (4.1-5.4) x10^6/uL Hgb 14.0 (12.0-16.0) g/dL Hct 45.1 (35-47) % MCV 97.8 (78-100) fL MCH 30.4 (26-32) pg MCHC 31.0 L (32-36) g/dL RDW 12.2 (11.5-14.0) % Plt Count 363 (150-450) x10^3/uL MPV 8.6 (7.5-11.0) fL Gran % 48.4 (36.0-66.0) % Immature Gran % (Auto) 0.1 (0.00-0.4) % Nucleat RBC Rel Count 0.0 (0.00-0.1) % Eos # (Auto) 0.19 (0-0.5) x10^3/uL Immature Gran # (Auto) 0.01 (0.00-0.03) x10^3u/L Absolute Lymphs (auto) 3.24 (1.0-4.6) x10^3/uL Absolute Monos (auto) 0.83 (0.0-1.3) x10^3/uL Absolute Nucleated RBC 0.00 (0.00-0.01) x10^3u/L Lymphocytes % 38.5 (24.0-44.0) % Monocytes % 9.9 (0.0-12.0) % Eosinophils % 2.3 (0.00-5.0) % Basophils % 0.8 (0.0-0.4) % Absolute Granulocytes 4.08 (1.4-6.9) x10^3/uL Basophils # 0.07 (0-0.4) x10^3/uL PT (9.4-12.5) SECONDS INR (0.8-3.0) APTT (25.1-36.5) SECONDS D-Dimer (0.0-0.50) mg/L Puncture Site LEFT BRACHIAL pCO2 29 L (35-45) mmHg pO2 158 H* (75-100) mmHg Base Excess -0.7 (-2.0-2.0) O2 Saturation 92.5 L (94-100) g/dF ABG pH 7.48 H (7.35-7.45) ABG HCO3 21.6 L (22-28) ABG O2 Sat (Measured) 100.0 (95-100) % Carmine Test NOT APPLICABLE A-a Gradient 119 a/A Ratio 0.57 Hemoglobin 15.0 Carboxyhemoglobin 7.1 H* (0.0-6.9) % THgb Methemoglobin 0.5 L (1.4-1.5) % Potassium 3.5 3.6 (3.5-5.1) Temperature 37.0 C POC O2 Flow Rate 44 % Sodium 140 (137-145) mmol/L Chloride 106 (98-107) mmol/L Carbon Dioxide 25 (22-30) mmol/L Anion Gap 12.8 (5-15) MEQ/L BUN 12 (7-17) mg/dL Creatinine 0.57 (0.52-1.04) mg/dL Estimated GFR > 60.0 ML/MIN Glucose 105 (74-106) mg/dL Lactic Acid 2.8 H (0.4-2.0) Calcium 8.8 (8.4-10.2) mg/dL Total Bilirubin 0.50 (0.2-1.3) mg/dL AST 26 (14-36) U/L ALT 17 (0-35) U/L Alkaline Phosphatase 68 (38-126) U/L Troponin I (0.000-0.034) ng/mL NT-Pro-B Natriuret Pep (<300) pg/mL Serum Total Protein 7.2 (6.3-8.2) g/dL Albumin 4.2 (3.5-5.0) g/dL - Progress Progress: improved Air Movement: fair Blood Culture(s) Obtained: No Antibiotics given: No Discussed with : [facility] Medical Desision Making - Discussion of managment Care discussed with:: PCP Agreed on:: Treatment plan Will see patient: in hospital - Diagnostic Testing Diagnostic test were ordered, analyzed, and reviewed by me: Yes Radiological Interpretation: Reviewed by me - Risk of complications The pt has a mod risk of morbidity or mortality based on: Need for prescription drug management The pt has a high risk of morbidity or mortality based on: Decision regarding hospitilization or escalation of hosp level of care - Departure Departure Disposition: Observation Clinical Impression: COPD exacerbation Condition: Stable Critical Care Time: No Referrals: ODALYS DELANEY MD [Primary Care Provider] - Follow up/PCP as directed Instructions: Chronic Obstructive Pulmonary Disease, Asthma, Adult (DC), Exacerbation of COPD (DC)
[2023-01-19] MEDS ORDERED: solu-MEDROL ONE (09:47)
[2023-01-19] MEDS ORDERED: Sterile H2O 10 ml IJ ONE (09:47)
[2023-01-19] MEDS ORDERED: Hydromorphone 1 mg/ml Injection IV ONE (10:00)
[2023-01-19] MEDS ORDERED: Hydromorphone 1 mg/ml Injection ONE (10:02)
[2023-01-19 10:20] LABS: Absolute Neutrophil Ct (ANC) 4.08 x10^3/uL (1.4-6.9); BASOPHIL % 0.8 % (0.0-0.4); Basophil (Absolute #) 0.07 x10^3/uL (0-0.4); Eosinophil % 2.3 % (0.00-5.0); Eosinophil (Absolute #) 0.19 x10^3/uL (0-0.5); Hematocrit 45.1 % (35-47); IMMATURE GRAN # 0.01 x10^3u/L (0.00-0.03); IMMATURE GRAN % 0.1 % (0.00-0.4); Lymphocyte (Absolute #) 3.24 x10^3/uL (1.0-4.6); Lymphocytes % 38.5 % (24.0-44.0); Mean Cell Volume 97.8 fL (78-100); Mean Corpuscular Hemoglobin 30.4 pg (26-32); Mean Platelet Volume 8.6 fL (7.5-11.0); Monocyte (Absolute #) 0.83 x10^3/uL (0.0-1.3); Monocytes % 9.9 % (0.0-12.0); Neutrophil % 48.4 % (36.0-66.0); Platelet Count 363 x10^3/uL (150-450); Red Blood Count 4.61 x10^6/uL (4.1-5.4); Red Cell Distribution Width 12.2 % (11.5-14.0); White Blood Count 8.4 x10^3/uL (4.0-10.5)
[2023-01-19 10:36] LABS: ALBUMIN 4.2 g/dL (3.5-5.0); ALKALINE PHOSPHATASE 68 U/L (38-126); ANION GAP 12.8 MEQ/L (5-15); BLOOD UREA NITROGEN 12 mg/dL (7-17); CHLORIDE 106 mmol/L (98-107); Calcium 8.8 mg/dL (8.4-10.2); Carbon Dioxide 25 mmol/L (22-30); Creatinine 1 0.57 mg/dL (0.52-1.04); EST GLOMERULAR FILTRATION RATE > 60.0 ML/MIN; Glucose 105 mg/dL (74-106); Potassium 3.5 mmol/L (3.5-5.1); SGOT/AST 26 U/L (14-36); SGPT/ALT 17 U/L (0-35); SODIUM 140 mmol/L (137-145); Total Protein 7.2 g/dL (6.3-8.2)
[2023-01-19 10:38] LABS: D-DIMER QUANTITATIVE < 0.19 mg/L (0.0-0.50); INR 0.94 (0.8-3.0); PROTIME 10.3 SECONDS (9.4-12.5); PTT 28.3 SECONDS (25.1-36.5)
[2023-01-19 11:27] LABS: INFLUENZA A NEGATIVE (NEGATIVE); INFLUENZA B NEGATIVE (NEGATIVE); RESPIRATORY SYNCTIAL VIRUS NEGATIVE (NEGATIVE); SARS-CoV-2 Xpert Express NEGATIVE (NEGATIVE)
[2023-01-19] MEDS ORDERED: ROCEPHIN 1 Gm-D5w 50 ml Bag** 1 G/50 ML IVPB IV ONE (11:37)
[2023-01-19] MEDS ORDERED: solu-MEDROL 125 MG, Sterile H2O 10 ml 2 ML IV SCH ×2 (14:00)
[2023-01-19] MEDS ORDERED: TYLENOL 325 MG PO PRN (15:51)
[2023-01-19] MEDS ORDERED: TYLENOL EXTRA STRENGTH 500 MG PO PRN (16:00)
[2023-01-19] MEDS ORDERED: VENTOLIN COMMON CANISTER IH PRN (16:00)
[2023-01-19] MEDS: DUONEB 0.5-3 MG/3 ml Neb IH SCH ×3 (16:07→23:52)
[2023-01-19] MEDS: Zestril 10 MG PO SCH (16:12)
[2023-01-19] MEDS ORDERED: ADVAIR HFA 45/21 COMMON CANISTER IH SCH (19:00)
[2023-01-19] MEDS: Zithromax 500 MG/ 250 ML NaCl Premix 500 MG/250 ML IVPB IV SCH (19:02)
[2023-01-19] MEDS: Zofran 4 MG/2 ML VIAL IV PRN (19:55)
[2023-01-19] MEDS: Hydromorphone 1 mg/ml Injection IV PRN (19:56)
--- NOTE | 2023-01-19 21:30 | PCM.HP ---
History of Present Illness - Chief Complaint Chief Complaint: shortness of breath for 2-3 days History of Present Illness: is a 57 year old female.longtime heavy smoker who presents with extreme shortness of breath getting worse over the past 2 days. She has been coughing and she continues to smoke. She is quite agitated and anxious upon arrival. Timing/Duration: day(s) (2) Activities at Onset: none Severity of Dyspnea-Max: moderate Severity of Dyspnea-Current: mild Possible Cause: frequent episodes, smoke exposure Modifying Factors: Improves With: albuterol nebulizer Associated Symptoms: anxiety, cough, wheezing - Review of Systems Constitutional: No Fever, No Chills Eyes: No Symptoms Ears, Nose, & Throat: No Symptoms Respiratory: Cough, Orthopnea, Short Of Breath, Wheezing Cardiac: No Chest Pain, No Edema, No Syncope Abdominal/Gastrointestinal: No Abdominal Pain, No Nausea, No Vomiting, No Diarrhea Genitourinary Symptoms: No Dysuria Musculoskeletal: No Back Pain, No Neck Pain Skin: No Rash Neurological: No Dizziness, No Focal Weakness, No Sensory Changes Psychological: No Symptoms Endocrine: No Symptoms Hematologic/Lymphatic: No Symptoms Immunological/Allergic: No Symptoms Medications & Allergies Home Medications: Home Medication List Acetaminophen [Tylenol Extra Strength] 1,000 mg PO BID PRN PRN 07/31/22 [History Confirmed 01/19/23] Albuterol Common Canister [Ventolin Common Canister] 2 puff IH Q4-6HPRN PRN 7 Days #1 unit 07/31/22 [Rx Confirmed 01/19/23] Fluticasone/Salmeterol [Advair 100-50 Diskus] 1 puffs IH BID 07/31/22 [History Confirmed 01/19/23] Lisinopril 10 mg [Zestril 10 MG] 1 tab PO DAILY 07/31/22 [History Confirmed 01/19/23] Montelukast Sodium 10 mg [Singulair 10 MG] 10 mg PO HS 01/19/23 [History Confirmed 01/19/23] Omeprazole 20 mg PO HS 01/19/23 [History Confirmed 01/19/23] Allergies/Adverse Reactions: Allergies Allergy/AdvReac Type Severity Reaction Status Date / Time aspirin Allergy Verified 01/19/23 08:32 gabapentin Allergy Verified 01/19/23 08:32 naproxen Allergy Verified 01/19/23 08:32 Penicillins Allergy Verified 01/19/23 08:32 - Past Medical History Past Medical History: Yes ENT History: Other Cardiac History: Hypertension Respiratory History: Asthma, COPD Musculoskelatal History: Other GI Medical History: Diverticulitis, GERD History: No Pertinent History Reproductive Disorders: Ovarian Cancer, Uterine Cancer Comment: cancer tongue, breast and urterin - Female History Are you now?: No - Past Surgical History Past Surgical History: Yes Musculskeletal Surgical Hx: Orthopedic Surgery Female Surgical History: Hysterectomy Other Surgical History: knee , lumpectomy - Social History Smoking Status: Current every day smoker Exposure to second hand smoke: Yes Alcohol: None Drug Use: none - Physical Exam Vital Signs: Vital Signs - 24 hr Temp Pulse Resp BP Pulse Ox 01/19/23 19:41 97.0 F 82 20 136/65 95 01/19/23 19:15 93 H 18 97 01/19/23 16:00 97.3 F 77 18 134/64 96 01/19/23 15:46 80 24 97 01/19/23 13:39 97.1 F 80 17 131/76 97 01/19/23 13:18 97.1 F 80 17 131/76 97 01/19/23 12:41 76 16 111/87 97 01/19/23 11:17 97 01/19/23 11:17 63 16 115/71 95 01/19/23 10:01 72 16 143/92 96 01/19/23 08:41 28 H 97 01/19/23 08:33 97.6 F 88 156/107 100 General Appearance: no apparent distress, alert Neurologic Exam: alert, oriented x 3, cooperative, normal mood/affect, nml cerebellar function, nml station & gait, sensation nml, No motor deficits Eye Exam: PERRL/EOMI, eyes nml inspection Ears, Nose, Throat Exam: normal ENT inspection, TMs normal, pharynx normal, moist mucous membranes Neck Exam: normal inspection, non-tender, supple, full range of motion Respiratory Exam: diminished breath sounds, accessory muscle use, crackles/rales, rhonchi, wheezing, No respiratory distress Cardiovascular Exam: regular rate/rhythm, normal heart sounds, normal peripheral pulses Gastrointestinal/Abdomen Exam: soft, normal bowel sounds, No tenderness, No mass Back Exam: normal inspection, normal range of motion, No CVA tenderness, No vertebral tenderness Extremity Exam: normal inspection, normal range of motion, pelvis stable Skin Exam: normal color, warm, dry, No rash Lymphatic Exam: No adenopathy Results - Labs Lab/Micro Results: Lab Results-Last 24 Hours 01/19/23 01/19/23 01/19/23 Range/Units 08:33 10:10 10:10 WBC 8.4 (4.0-10.5) x10^3/uL RBC 4.61 (4.1-5.4) x10^6/uL Hgb 14.0 (12.0-16.0) g/dL Hct 45.1 (35-47) % MCV 97.8 (78-100) fL MCH 30.4 (26-32) pg MCHC 31.0 L (32-36) g/dL RDW 12.2 (11.5-14.0) % Plt Count 363 (150-450) x10^3/uL MPV 8.6 (7.5-11.0) fL Gran % 48.4 (36.0-66.0) % Immature Gran % (Auto) 0.1 (0.00-0.4) % Nucleat RBC Rel Count 0.0 (0.00-0.1) % Eos # (Auto) 0.19 (0-0.5) x10^3/uL Immature Gran # (Auto) 0.01 (0.00-0.03) x10^3u/L Absolute Lymphs (auto) 3.24 (1.0-4.6) x10^3/uL Absolute Monos (auto) 0.83 (0.0-1.3) x10^3/uL Absolute Nucleated RBC 0.00 (0.00-0.01) x10^3u/L Lymphocytes % 38.5 (24.0-44.0) % Monocytes % 9.9 (0.0-12.0) % Eosinophils % 2.3 (0.00-5.0) % Basophils % 0.8 (0.0-0.4) % Absolute Granulocytes 4.08 (1.4-6.9) x10^3/uL Basophils # 0.07 (0-0.4) x10^3/uL PT (9.4-12.5) SECONDS INR (0.8-3.0) APTT (25.1-36.5) SECONDS D-Dimer (0.0-0.50) mg/L Puncture Site LEFT BRACHIAL pCO2 29 L (35-45) mmHg pO2 158 H* (75-100) mmHg Base Excess -0.7 (-2.0-2.0) O2 Saturation 92.5 L (94-100) g/dF ABG pH 7.48 H (7.35-7.45) ABG HCO3 21.6 L (22-28) ABG O2 Sat (Measured) 100.0 (95-100) % Carmine Test NOT APPLICABLE A-a Gradient 119 a/A Ratio 0.57 Hemoglobin 15.0 Carboxyhemoglobin 7.1 H* (0.0-6.9) % THgb Methemoglobin 0.5 L (1.4-1.5) % Potassium 3.6 3.5 (3.5-5.1) Temperature 37.0 C POC O2 Flow Rate 44 % Sodium 140 (137-145) mmol/L Chloride 106 (98-107) mmol/L Carbon Dioxide 25 (22-30) mmol/L Anion Gap 12.8 (5-15) MEQ/L BUN 12 (7-17) mg/dL Creatinine 0.57 (0.52-1.04) mg/dL Estimated GFR > 60.0 ML/MIN Glucose 105 (74-106) mg/dL Lactic Acid 2.8 H (0.4-2.0) Calcium 8.8 (8.4-10.2) mg/dL Total Bilirubin 0.50 (0.2-1.3) mg/dL AST 26 (14-36) U/L ALT 17 (0-35) U/L Alkaline Phosphatase 68 (38-126) U/L Troponin I (0.000-0.034) ng/mL NT-Pro-B Natriuret Pep (<300) pg/mL Serum Total Protein 7.2 (6.3-8.2) g/dL Albumin 4.2 (3.5-5.0) g/dL Influenza Type A Ag (NEGATIVE) Influenza Type B Ag (NEGATIVE) RSV (PCR) (NEGATIVE) SARS-CoV-2 (PCR) (NEGATIVE) 01/19/23 01/19/23 01/19/23 Range/Units 10:10 10:10 10:10 WBC (4.0-10.5) x10^3/uL RBC (4.1-5.4) x10^6/uL Hgb (12.0-16.0) g/dL Hct (35-47) % MCV (78-100) fL MCH (26-32) pg MCHC (32-36) g/dL RDW (11.5-14.0) % Plt Count (150-450) x10^3/uL MPV (7.5-11.0) fL Gran % (36.0-66.0) % Immature Gran % (Auto) (0.00-0.4) % Nucleat RBC Rel Count (0.00-0.1) % Eos # (Auto) (0-0.5) x10^3/uL Immature Gran # (Auto) (0.00-0.03) x10^3u/L Absolute Lymphs (auto) (1.0-4.6) x10^3/uL Absolute Monos (auto) (0.0-1.3) x10^3/uL Absolute Nucleated RBC (0.00-0.01) x10^3u/L Lymphocytes % (24.0-44.0) % Monocytes % (0.0-12.0) % Eosinophils % (0.00-5.0) % Basophils % (0.0-0.4) % Absolute Granulocytes (1.4-6.9) x10^3/uL Basophils # (0-0.4) x10^3/uL PT 10.3 (9.4-12.5) SECONDS INR 0.94 (0.8-3.0) APTT 28.3 (25.1-36.5) SECONDS D-Dimer < 0.19 (0.0-0.50) mg/L Puncture Site pCO2 (35-45) mmHg pO2 (75-100) mmHg Base Excess (-2.0-2.0) O2 Saturation (94-100) g/dF ABG pH (7.35-7.45) ABG HCO3 (22-28) ABG O2 Sat (Measured) (95-100) % Carmine Test A-a Gradient a/A Ratio Hemoglobin Carboxyhemoglobin (0.0-6.9) % THgb Methemoglobin (1.4-1.5) % Potassium (3.5-5.1) Temperature C POC O2 Flow Rate % Sodium (137-145) mmol/L Chloride (98-107) mmol/L Carbon Dioxide (22-30) mmol/L Anion Gap (5-15) MEQ/L BUN (7-17) mg/dL Creatinine (0.52-1.04) mg/dL Estimated GFR ML/MIN Glucose (74-106) mg/dL Lactic Acid (0.4-2.0) Calcium (8.4-10.2) mg/dL Total Bilirubin (0.2-1.3) mg/dL AST (14-36) U/L ALT (0-35) U/L Alkaline Phosphatase (38-126) U/L Troponin I 0.013 (0.000-0.034) ng/mL NT-Pro-B Natriuret Pep 163 (<300) pg/mL Serum Total Protein (6.3-8.2) g/dL Albumin (3.5-5.0) g/dL Influenza Type A Ag (NEGATIVE) Influenza Type B Ag (NEGATIVE) RSV (PCR) (NEGATIVE) SARS-CoV-2 (PCR) (NEGATIVE) 01/19/23 01/19/23 01/19/23 Range/Units 10:10 10:48 14:07 WBC (4.0-10.5) x10^3/uL RBC (4.1-5.4) x10^6/uL Hgb (12.0-16.0) g/dL Hct (35-47) % MCV (78-100) fL MCH (26-32) pg MCHC (32-36) g/dL RDW (11.5-14.0) % Plt Count (150-450) x10^3/uL MPV (7.5-11.0) fL Gran % (36.0-66.0) % Immature Gran % (Auto) (0.00-0.4) % Nucleat RBC Rel Count (0.00-0.1) % Eos # (Auto) (0-0.5) x10^3/uL Immature Gran # (Auto) (0.00-0.03) x10^3u/L Absolute Lymphs (auto) (1.0-4.6) x10^3/uL Absolute Monos (auto) (0.0-1.3) x10^3/uL Absolute Nucleated RBC (0.00-0.01) x10^3u/L Lymphocytes % (24.0-44.0) % Monocytes % (0.0-12.0) % Eosinophils % (0.00-5.0) % Basophils % (0.0-0.4) % Absolute Granulocytes (1.4-6.9) x10^3/uL Basophils # (0-0.4) x10^3/uL PT (9.4-12.5) SECONDS INR (0.8-3.0) APTT (25.1-36.5) SECONDS D-Dimer (0.0-0.50) mg/L Puncture Site pCO2 (35-45) mmHg pO2 (75-100) mmHg Base Excess (-2.0-2.0) O2 Saturation (94-100) g/dF ABG pH (7.35-7.45) ABG HCO3 (22-28) ABG O2 Sat (Measured) (95-100) % Carmine Test A-a Gradient a/A Ratio Hemoglobin Carboxyhemoglobin (0.0-6.9) % THgb Methemoglobin (1.4-1.5) % Potassium (3.5-5.1) Temperature C POC O2 Flow Rate % Sodium (137-145) mmol/L Chloride (98-107) mmol/L Carbon Dioxide (22-30) mmol/L Anion Gap (5-15) MEQ/L BUN (7-17) mg/dL Creatinine (0.52-1.04) mg/dL Estimated GFR ML/MIN Glucose (74-106) mg/dL Lactic Acid 2.1 H (0.4-2.0) Calcium (8.4-10.2) mg/dL Total Bilirubin (0.2-1.3) mg/dL AST (14-36) U/L ALT (0-35) U/L Alkaline Phosphatase (38-126) U/L Troponin I < 0.012 (0.000-0.034) ng/mL NT-Pro-B Natriuret Pep (<300) pg/mL Serum Total Protein (6.3-8.2) g/dL Albumin (3.5-5.0) g/dL Influenza Type A Ag NEGATIVE (NEGATIVE) Influenza Type B Ag NEGATIVE (NEGATIVE) RSV (PCR) NEGATIVE (NEGATIVE) SARS-CoV-2 (PCR) NEGATIVE (NEGATIVE) 01/19/23 Range/Units 19:10 WBC (4.0-10.5) x10^3/uL RBC (4.1-5.4) x10^6/uL Hgb (12.0-16.0) g/dL Hct (35-47) % MCV (78-100) fL MCH (26-32) pg MCHC (32-36) g/dL RDW (11.5-14.0) % Plt Count (150-450) x10^3/uL MPV (7.5-11.0) fL Gran % (36.0-66.0) % Immature Gran % (Auto) (0.00-0.4) % Nucleat RBC Rel Count (0.00-0.1) % Eos # (Auto) (0-0.5) x10^3/uL Immature Gran # (Auto) (0.00-0.03) x10^3u/L Absolute Lymphs (auto) (1.0-4.6) x10^3/uL Absolute Monos (auto) (0.0-1.3) x10^3/uL Absolute Nucleated RBC (0.00-0.01) x10^3u/L Lymphocytes % (24.0-44.0) % Monocytes % (0.0-12.0) % Eosinophils % (0.00-5.0) % Basophils % (0.0-0.4) % Absolute Granulocytes (1.4-6.9) x10^3/uL Basophils # (0-0.4) x10^3/uL PT (9.4-12.5) SECONDS INR (0.8-3.0) APTT (25.1-36.5) SECONDS D-Dimer (0.0-0.50) mg/L Puncture Site pCO2 (35-45) mmHg pO2 (75-100) mmHg Base Excess (-2.0-2.0) O2 Saturation (94-100) g/dF ABG pH (7.35-7.45) ABG HCO3 (22-28) ABG O2 Sat (Measured) (95-100) % Carmine Test A-a Gradient a/A Ratio Hemoglobin Carboxyhemoglobin (0.0-6.9) % THgb Methemoglobin (1.4-1.5) % Potassium (3.5-5.1) Temperature C POC O2 Flow Rate % Sodium (137-145) mmol/L Chloride (98-107) mmol/L Carbon Dioxide (22-30) mmol/L Anion Gap (5-15) MEQ/L BUN (7-17) mg/dL Creatinine (0.52-1.04) mg/dL Estimated GFR ML/MIN Glucose (74-106) mg/dL Lactic Acid (0.4-2.0) Calcium (8.4-10.2) mg/dL Total Bilirubin (0.2-1.3) mg/dL AST (14-36) U/L ALT (0-35) U/L Alkaline Phosphatase (38-126) U/L Troponin I < 0.012 (0.000-0.034) ng/mL NT-Pro-B Natriuret Pep (<300) pg/mL Serum Total Protein (6.3-8.2) g/dL Albumin (3.5-5.0) g/dL Influenza Type A Ag (NEGATIVE) Influenza Type B Ag (NEGATIVE) RSV (PCR) (NEGATIVE) SARS-CoV-2 (PCR) (NEGATIVE) - Radiology Impressions Radiology Exams & Impressions: Radiology Procedures Category Date Time Status CHEST 1 VIEW (PORTABLE) Stat Exams 01/19/23 08:34 Completed - Other Procedures and Tests Respiratory Therapy 01/19/23 11:18 Oxygen Nasal Cannula 6 lpm 01/20/23 07:00 Respiratory Therapy Assessment DAILY Assessment/Plan (1) COPD exacerbation Current Visit: Yes Status: Acute Assessment & Plan: Chief Complaint Diagnosis copd exacerbation Allergies Allergy/AdvReac Type Severity Reaction Status Date / Time aspirin Allergy Verified 01/19/23 08:32 gabapentin Allergy Verified 01/19/23 08:32 naproxen Allergy Verified 01/19/23 08:32 Penicillins Allergy Verified 01/19/23 08:32 Vital Signs (Last 24 hours) Temp Pulse Resp BP Pulse Ox 01/19/23 19:41 97.0 F 82 20 136/65 95 01/19/23 19:15 93 H 18 97 01/19/23 16:00 97.3 F 77 18 134/64 96 01/19/23 15:46 80 24 97 01/19/23 13:39 97.1 F 80 17 131/76 97 01/19/23 13:18 97.1 F 80 17 131/76 97 01/19/23 12:41 76 16 111/87 97 01/19/23 11:17 97 01/19/23 11:17 63 16 115/71 95 01/19/23 10:01 72 16 143/92 96 01/19/23 08:41 28 H 97 01/19/23 08:33 97.6 F 88 156/107 100 Home Medications Medication Instructions Recorded Confirmed Last Taken Type Montelukast Sodium 10 mg 10 mg PO 01/19/23 01/19/23 01/18/23 History [Singulair 10 MG] Omeprazole 20 mg PO 01/19/23 01/19/23 01/18/23 History Current Medications Generic Name Dose Route Start Last Admin Trade Name Freq PRN Reason Stop Dose Admin Acetaminophen 650 mg 01/19/23 15:51 01/19/23 16:12 Acetaminophen 325 Mg Tablet PO 02/18/23 15:50 650 mg Q4H PRN PRN Administration PAIN AND/OR FEVER Acetaminophen 1,000 mg 01/19/23 16:00 Acetaminophen 500 Mg Tablet PO 02/18/23 15:59 BID PRN PRN PAIN Albuterol Sulfate 2 puff 01/19/23 16:00 Albuterol Common Canister Inhaler 02/18/23 15:59 Q4-6HPRN PRN SHORTNESS OF BREATH/WHEEZING Albuterol/Ipratropium 3 ml 01/19/23 15:00 01/19/23 19:15 Ipratropium/Albuterol Sulfate 3 Ml Ampul.Neb 02/18/23 14:59 3 ml Q4HRT MELISSA Administration Methylprednisolone Sodium 0 mg 01/19/23 22:00 Succinate 125 mg/ Sterile IV 02/18/23 21:59 Water 2 ml Q12HT MELISSA Hydromorphone HCl 1 mg 01/19/23 16:43 01/19/23 19:56 Hydromorphone 1 Mg/1ml Inj 1 Mg/Ml Syringe IV 01/24/23 16:42 1 mg Q4H PRN PRN Administration PAIN Azithromycin 500 mg in 250 mls @ 250 mls/hr 01/19/23 17:00 01/19/23 19:02 Zithromax 500 Mg/ 250 Ml Nacl Premix IV 02/18/23 16:59 250 mls/hr Q24H10 MELISSA Administration Ceftriaxone Sodium/Dextrose 1 g in 50 mls @ 100 mls/hr 01/20/23 10:00 Rocephin 1 Gm-D5w 50 Ml Bag IV 01/23/23 09:59 Q24H10 MELISSA Lisinopril 10 mg 01/19/23 17:00 01/19/23 16:12 Lisinopril 10 Mg Tablet PO 02/18/23 16:59 10 mg DAILY MELISSA Administration Montelukast Sodium 10 mg 01/19/23 22:00 Montelukast Sodium 10 Mg Tablet PO 02/18/23 21:59 HS [facility] Ondansetron HCl 4 mg 01/19/23 19:44 01/19/23 19:55 Ondansetron Hcl 4 Mg/2 Ml Vial IV 02/18/23 19:43 4 mg Q4H PRN PRN Administration NAUSEA/VOMITING Pantoprazole Sodium 40 mg 01/19/23 22:00 Protonix (Pantoprazole) 40 Mg Tablet PO 02/18/23 21:59 HS [facility] Fluticasone/Salmeterol 2 puff 01/19/23 19:00 01/19/23 19:15 Fluticasone/Salmeterol 45/21 60 Puff Common Canister 02/18/23 18:59 2 puff BIDRT MELISSA Administration Discontinued Medications Generic Name Dose Route Start Last Admin Trade Name Freq PRN Reason Stop Dose Admin Methylprednisolone Sodium 0 mg 01/19/23 08:33 01/19/23 09:49 Succinate 125 mg/ Sterile IV 01/19/23 08:34 125 mg Water 2 ml STAT ONE Administration Methylprednisolone Sodium 0 mg 01/19/23 14:00 Succinate 125 mg/ Sterile IV 02/18/23 13:59 Water 2 ml Q12HT MELISSA Hydromorphone HCl 1 mg 01/19/23 10:00 01/19/23 10:04 Hydromorphone 1 Mg/1ml Inj 1 Mg/Ml Syringe IV 01/19/23 10:01 1 mg STAT ONE Administration Hydromorphone HCl Confirm 01/19/23 10:02 Hydromorphone 1 Mg/1ml Inj 1 Mg/Ml Syringe Administered 01/19/23 10:03 Dose 1 mg .ROUTE .STK-MED ONE Ceftriaxone Sodium/Dextrose 1 g in 50 mls @ 100 mls/hr 01/20/23 10:00 01/19/23 12:11 Rocephin 1 Gm-D5w 50 Ml Bag IV 01/23/23 09:59 Infused Q24H10 MELISSA Infusion Ceftriaxone Sodium/Dextrose Confirm 01/19/23 11:37 Rocephin 1 Gm-D5w 50 Ml Bag Administered 01/19/23 11:38 Dose 1 g in 50 mls @ ud IV .STK-MED ONE Methylprednisolone Sodium Succinate Confirm 01/19/23 09:47 Methylprednis Sod Succ 125 Mg/2 Ml Vial Administered 01/19/23 09:48 Dose 125 mg .ROUTE .STK-MED ONE Sterile Water Confirm 01/19/23 09:47 Water For Injection,Sterile 10 Ml Vial Administered 01/19/23 09:48 Dose 10 ml IJ .STK-MED ONE Intake & Output (Last 24 hours) 01/17/23 01/18/23 01/19/23 01/20/23 11:59 11:59 11:59 11:59 Intake Total 1000 Balance 1000 Weight 94.4 kg 75 kg Laboratory Results (Last 24 hours) 01/19/23 01/19/23 01/19/23 19:10 14:07 10:48 WBC RBC Hgb Hct MCV MCH MCHC RDW Plt Count MPV Gran % Immature Gran % (Auto) Nucleat RBC Rel Count Eos # (Auto) Immature Gran # (Auto) Absolute Lymphs (auto) Absolute Monos (auto) Absolute Nucleated RBC Lymphocytes % Monocytes % Eosinophils % Basophils % Absolute Granulocytes Basophils # PT INR APTT D-Dimer Puncture Site pCO2 pO2 Base Excess O2 Saturation ABG pH ABG HCO3 ABG O2 Sat (Measured) Carmine Test A-a Gradient a/A Ratio Hemoglobin Carboxyhemoglobin Methemoglobin Potassium Temperature POC O2 Flow Rate Sodium Chloride Carbon Dioxide Anion Gap BUN Creatinine Estimated GFR Glucose Lactic Acid 2.1 H Calcium Total Bilirubin AST ALT Alkaline Phosphatase Troponin I < 0.012 < 0.012 NT-Pro-B Natriuret Pep Serum Total Protein Albumin Influenza Type A Ag Influenza Type B Ag RSV (PCR) SARS-CoV-2 (PCR) 01/19/23 01/19/23 01/19/23 10:10 10:10 10:10 WBC RBC Hgb Hct MCV MCH MCHC RDW Plt Count MPV Gran % Immature Gran % (Auto) Nucleat RBC Rel Count Eos # (Auto) Immature Gran # (Auto) Absolute Lymphs (auto) Absolute Monos (auto) Absolute Nucleated RBC Lymphocytes % Monocytes % Eosinophils % Basophils % Absolute Granulocytes Basophils # PT INR APTT D-Dimer Puncture Site pCO2 pO2 Base Excess O2 Saturation ABG pH ABG HCO3 ABG O2 Sat (Measured) Carmine Test A-a Gradient a/A Ratio Hemoglobin Carboxyhemoglobin Methemoglobin Potassium Temperature POC O2 Flow Rate Sodium Chloride Carbon Dioxide Anion Gap BUN Creatinine Estimated GFR Glucose Lactic Acid Calcium Total Bilirubin AST ALT Alkaline Phosphatase Troponin I 0.013 NT-Pro-B Natriuret Pep 163 Serum Total Protein Albumin Influenza Type A Ag NEGATIVE Influenza Type B Ag NEGATIVE RSV (PCR) NEGATIVE SARS-CoV-2 (PCR) NEGATIVE 01/19/23 01/19/23 01/19/23 10:10 10:10 10:10 WBC 8.4 RBC 4.61 Hgb 14.0 Hct 45.1 MCV 97.8 MCH 30.4 MCHC 31.0 L RDW 12.2 Plt Count 363 MPV 8.6 Gran % 48.4 Immature Gran % (Auto) 0.1 Nucleat RBC Rel Count 0.0 Eos # (Auto) 0.19 Immature Gran # (Auto) 0.01 Absolute Lymphs (auto) 3.24 Absolute Monos (auto) 0.83 Absolute Nucleated RBC 0.00 Lymphocytes % 38.5 Monocytes % 9.9 Eosinophils % 2.3 Basophils % 0.8 Absolute Granulocytes 4.08 Basophils # 0.07 PT 10.3 INR 0.94 APTT 28.3 D-Dimer < 0.19 Puncture Site pCO2 pO2 Base Excess O2 Saturation ABG pH ABG HCO3 ABG O2 Sat (Measured) Carmine Test A-a Gradient a/A Ratio Hemoglobin Carboxyhemoglobin Methemoglobin Potassium 3.5 Temperature POC O2 Flow Rate Sodium 140 Chloride 106 Carbon Dioxide 25 Anion Gap 12.8 BUN 12 Creatinine 0.57 Estimated GFR > 60.0 Glucose 105 Lactic Acid Calcium 8.8 Total Bilirubin 0.50 AST 26 ALT 17 Alkaline Phosphatase 68 Troponin I NT-Pro-B Natriuret Pep Serum Total Protein 7.2 Albumin 4.2 Influenza Type A Ag Influenza Type B Ag RSV (PCR) SARS-CoV-2 (PCR) 01/19/23 08:33 WBC RBC Hgb Hct MCV MCH MCHC RDW Plt Count MPV Gran % Immature Gran % (Auto) Nucleat RBC Rel Count Eos # (Auto) Immature Gran # (Auto) Absolute Lymphs (auto) Absolute Monos (auto) Absolute Nucleated RBC Lymphocytes % Monocytes % Eosinophils % Basophils % Absolute Granulocytes Basophils # PT INR APTT D-Dimer Puncture Site LEFT BRACHIAL pCO2 29 L pO2 158 H* Base Excess -0.7 O2 Saturation 92.5 L ABG pH 7.48 H ABG HCO3 21.6 L ABG O2 Sat (Measured) 100.0 Carmine Test NOT APPLICABLE A-a Gradient 119 a/A Ratio 0.57 Hemoglobin 15.0 Carboxyhemoglobin 7.1 H* Methemoglobin 0.5 L Potassium 3.6 Temperature 37.0 POC O2 Flow Rate 44 Sodium Chloride Carbon Dioxide Anion Gap BUN Creatinine Estimated GFR Glucose Lactic Acid 2.8 H Calcium Total Bilirubin AST ALT Alkaline Phosphatase Troponin I NT-Pro-B Natriuret Pep Serum Total Protein Albumin Influenza Type A Ag Influenza Type B Ag RSV (PCR) SARS-CoV-2 (PCR) Orders (Last 24 hours) Category Date Time Status Bedrest with BRP/BSC ROUTINE Activity 01/19/23 11:18 Completed Code Status Order ROUTINE Care 01/19/23 11:18 Completed Code Status Order ROUTINE Care 01/19/23 13:38 Active EKG-ER Only STAT Care 01/19/23 08:33 Completed IV Care Q6H Care 01/19/23 11:18 Active IV Insertion STAT Care 01/19/23 08:33 Completed Intake and Output Q12H Care 01/19/23 11:[address] in Observation ROUTINE Care 01/19/23 11:[address] in Observation ROUTINE Care 01/19/23 13:39 Active Juan Jose Hose, Apply ROUTINE Care 01/19/23 11:18 Completed Vital Signs Q4H Care 01/19/23 11:18 Active Weight,Daily 0600 Care 01/19/23 11:18 Active House Regular Diet Diet 01/19/23 Dinner Active CHEST 1 VIEW (PORTABLE) Stat Exams 01/19/23 08:34 Completed ABG [ARTERIAL BLOOD GASES] Stat Lab 01/19/23 08:33 Completed CBC AM.LAB Lab 01/20/23 04:00 Ordered CBC W DIFF Stat Lab 01/19/23 10:10 Completed CMP AM.LAB Lab 01/20/23 04:00 Ordered CMP Stat Lab 01/19/23 10:10 Completed COVID/FLU/RSV Panel Stat Lab 01/19/23 10:10 Completed D-DIMER QUANTITATIVE Stat Lab 01/19/23 10:10 Completed Lactic Acid Stat Lab 01/19/23 08:33 Completed Lactic Acid Stat Lab 01/19/23 10:48 Completed NT PRO BNPII Stat Lab 01/19/23 10:10 Completed PROTIME WITH INR Stat Lab 01/19/23 10:10 Completed PTT Stat Lab 01/19/23 10:10 Completed TROPONIN Q4H Lab 01/19/23 10:10 Completed TROPONIN Q4H Lab 01/19/23 14:07 Completed TROPONIN Q4H Lab 01/19/23 19:10 Completed UA W/RFX UR CULTURE Stat Lab 01/19/23 08:34 Ordered Acetaminophen 325 mg [Tylenol 325 mg] Med 01/19/23 15:51 Active 650 mg PO Q4H PRN PRN Acetaminophen 500 mg [Tylenol Extra Strength 500 mg* Med 01/19/23 16:00 Active ] 1,000 mg PO BID PRN PRN Albuterol Common Canister [Ventolin Common Canister* Med 01/19/23 16:00 Active ] 2 puff IH Q4-6HPRN PRN Albuterol/Ipratropium 3ml Neb* [DUONEB 0.5-3 MG/3 ml Med 01/19/23 15:00 Active Neb] 3 ml IH Q4HRT Azithromycin 500 mg/250 ml [Zithromax 500 MG/ 250 ML Med 01/19/23 17:00 Active NaCl Premix] 500 mg in 250 ml IV Q24H10 Ceftriaxone 1 GM/50 ML PREMIX* [ROCEPHIN 1 Gm-D5w 50 ml Med 01/20/23 10:00 Active Bag] 1 g in 50 ml IV Q24H10 Ceftriaxone 1 GM/50 ML PREMIX* [ROCEPHIN 1 Gm-D5w 50 ml Med 01/20/23 10:00 Discontinued Bag] 1 g in 50 ml IV Q24H10 Ceftriaxone 1 GM/50 ML PREMIX* [ROCEPHIN 1 Gm-D5w 50 ml Med 01/19/23 11:37 Discontinued Bag] 1 g in 50 ml IV UD Fluticasone/Salmeterol 45/ [Advair Hfa 45/ Common Med 01/19/23 19:00 Active Canister*] 2 puff IH BIDRT Hydromorphone 1 mg/1Ml Inj [Hydromorphone 1 mg/ml Med 01/19/23 10:02 Discontinued Injection] 1 mg .ROUTE .STK-MED ONE Hydromorphone 1 mg/1Ml Inj [Hydromorphone 1 mg/ml Med 01/19/23 16:43 Active Injection] 1 mg IV Q4H PRN PRN Hydromorphone 1 mg/1Ml Inj [Hydromorphone 1 mg/ml Med 01/19/23 10:00 Dis continued Injection] 1 mg IV STAT ONE Lisinopril 10 mg [Zestril 10 MG] Med 01/19/23 17:00 Active 10 mg PO DAILY Methylprednis Sod Succ 125 mg* [solu-MEDROL] Med 01/19/23 09:47 Discontinued 125 mg .ROUTE .STK-MED ONE Methylprednis Sod Succ 125 mg* [solu-MEDROL] 125 mg Med 01/19/23 14:00 Discontinued Water For Injection,Sterile [Sterile H2O 10 ml] 2 ml IV Q12HT Methylprednis Sod Succ 125 mg* [solu-MEDROL] 125 mg Med 01/19/23 22:00 Active Water For Injection,Sterile [Sterile H2O 10 ml] 2 ml IV Q12HT Methylprednis Sod Succ 125 mg* [solu-MEDROL] 125 mg Med 01/19/23 08:33 Discontinued Water For Injection,Sterile [Sterile H2O 10 ml] 2 ml IV STAT Montelukast Sodium 10 mg [Singulair 10 MG] Med 01/19/23 22:00 Active 10 mg PO HS Ondansetron HCl 4 mg/2 ml [Zofran 4 MG/2 ML VIAL] Med 01/19/23 19:44 Ordered 4 mg IV Q4H PRN PRN PANTOPRAZOLE 40 mg Tablet [Protonix 40MG Tablet] Med 01/19/23 22:00 Active 40 mg PO HS Water For Injection,Sterile [Sterile H2O 10 ml] Med 01/19/23 09:47 Discontinued 10 ml IJ .STK-MED ONE Oxygen Nasal Cannula 6 lpm RT 01/19/23 11:18 Active Pulse Oximetry ROUTINE RT 01/19/23 13:31 Active Respiratory Therapy Assessment DAILY RT 01/20/23 07:00 Active Transfer Order Routine Transfer 01/19/23 Completed Patient Care Notes (Last 24 hours) 01/19/23 16:06 STATEMENT [employer]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 Initialized on 01/19/23 16:06 - END OF NOTE 01/19/23 15:48 STATEMENT CLERKS SUPERVISOR Note by Amber Solis PT CALLED THIS STATEMENT CLERKS SUPERVISOR ASKING TO REMOVE RT (REGI) FROM ROOM. PT STATED SHE DID NOT WANT REGI IN THE ROOM. RT REGI LEFT PT ROOM AND INFORMED PT THAT SHE WOULD NOT GET A BREATHING TREATMENT UNTIL THE NEXT SHIFT AT 1900. RT REGI THEN WENT BACK INTO PT ROOM AND ASKED PT IF SHE WAS REFUSING A TREATMENT. PT STATED YES AND THE INSISTED RT REGI LEFT HER ROOM.THIS STATEMENT CLERKS SUPERVISOR THEN ENTERED THE ROOM AND SPOKE TO THE PT. PT WAS POLITE TO THIS STATEMENT CLERKS SUPERVISOR AND STATED THAT SHE HAD SPENT 17 MONTHS IN ALF AND WAS NOT COMFORTABLE WITH SOMEONE TAKING HER MEDICINES FROM HER.THIS STATEMENT CLERKS SUPERVISOR ASKED THE PT IF OUR PHARMACIST COULD COME DOWN AND VIEW THE MEDICATION IN THE ROOM. PT STATED THAT WOULD BE FINE. MAGY NUVIA THEN ENTERED THE ROOM AND EXAMINED THE MEDICATION WITH NO ISSUES. PT THEN STATED SHE WILL DO A TREATMENT FROM RT LONG IT IS NOT REGI. Initialized on 01/19/23 15:48 - END OF NOTE 01/19/23 15:29 Respiratory Note by Paulette Ontiveros 1525 WENT IN PTS ROOM TO DO INITAL ASSESMENT. WE DISCUSSED HER HOME RESPIRATORY MEDS. SHE STATED SHE WANTED TO USE HER OWN MDI. WHEN I EXPLAINED I WOULD HAVE TO HAVE OUR PHARMIST CHECK HER MEDS , SHE TOLD ME SHE DIDNT TRUST ANYONE AND FOR ME TO LEAVE HER ROOM AND CALLED ON THE RN CALL LIGHT TO HAVE ME LEAVE. I TRIED TO EXPLAIN THAT I WOULD GIVE HER A TREATMENT THEN LEAVE. SHE WANTED ME OUT OF HER ROOM. ABOUT 5MIN LATER I WENT BACK TO HER ROOM TO SEE IF I COULKD GIVE HER DUONEB TO HER. AGAIN SHE DID NOT WANT ME IN HER ROOM AND TO LEAVE. RN NOTIFIED, BSS SOLUTION ARCHITECT NOTIFIED. PT WAS VERY DISRESPECTFUL. EVEN AFTER TRYING TO REASON WITH HER. SHE SAYS SHE TRUST NO ONE . AND POINTED HER FINGER TWORDS THE DOOR TO GET OUT. Initialized on 01/19/23 15:29 - END OF NOTE Code(s): J44.1 - CHRONIC OBSTRUCTIVE PULMONARY DISEASE W (ACUTE) EXACERBATION
[2023-01-19] MEDS ORDERED: Protonix 40MG Tablet PO SCH (22:00)
[2023-01-19] MEDS ORDERED: Singulair 10 MG PO SCH (22:00)
[2023-01-19] MEDS: solu-MEDROL 125 MG, Sterile H2O 10 ml 2 ML IV SCH ×2 (22:20)
[2023-01-19 23:23] LABS: Appearance Clear (Clear); Bacteria None Seen /HPF (None Seen); Bilirubin Negative (Negative); Blood Trace (Negative); Epithelial Cells None Seen /HPF (None Seen); Glucose, Urine Negative (Negative); Hyaline Casts NONE SEEN /LPF (0-2); Ketones Negative (Negative); Leukocyte Esterase Trace (Negative); Nitrite Negative (Negative); Ph 6.5 (4.6-8.0); Protein,Urine Dip Negative (Negative); Specific Gravity 1.015 (1.005-1.030); Urobilinogen 0.2 mg/dL (0.2); WBC 0-2 /HPF (0-5)
[2023-01-19 23:24] LABS: ADD URINE CULTURE? YES (NO)
[2023-01-20] MEDS: Hydromorphone 1 mg/ml Injection IV PRN ×3 (00:03→08:34)
[2023-01-20] MEDS: Zofran 4 MG/2 ML VIAL IV PRN ×3 (00:03→08:28)
[2023-01-20] MEDS: DUONEB 0.5-3 MG/3 ml Neb IH SCH ×3 (03:10→10:59)
[2023-01-20 04:40] LABS: Hematocrit 45.3 % (35-47); Hemoglobin 14.2 g/dL (12.0-16.0); Mean Cell Volume 97.4 fL (78-100); Mean Corpuscular Hemoglobin 30.5 pg (26-32); Mean Corpuscular Hgb Concent. 31.3 g/dL (32-36); Mean Platelet Volume 8.9 fL (7.5-11.0); Platelet Count 381 x10^3/uL (150-450); Red Blood Count 4.65 x10^6/uL (4.1-5.4); White Blood Count 6.9 x10^3/uL (4.0-10.5)
[2023-01-20 04:54] LABS: ALBUMIN 4.6 g/dL (3.5-5.0); ALKALINE PHOSPHATASE 59 U/L (38-126); ANION GAP 17.7 MEQ/L (5-15); BLOOD UREA NITROGEN 14 mg/dL (7-17); CHLORIDE 105 mmol/L (98-107); Calcium 9.2 mg/dL (8.4-10.2); Carbon Dioxide 25 mmol/L (22-30); Creatinine 1 0.69 mg/dL (0.52-1.04); EST GLOMERULAR FILTRATION RATE > 60.0 ML/MIN; Glucose 212 mg/dL (74-106); Potassium 4.5 mmol/L (3.5-5.1); SGOT/AST 30 U/L (14-36); SGPT/ALT 23 U/L (0-35); SODIUM 142 mmol/L (137-145); Total Protein 7.9 g/dL (6.3-8.2)
[2023-01-20] MEDS ORDERED: Phenergan 25 MG INJ*** 12.5 MG in Sodium Chloride 0.9% 100 ML IV PRN (08:55)
[2023-01-20] MEDS: solu-MEDROL 125 MG, Sterile H2O 10 ml 2 ML IV SCH ×2 (09:55)
[2023-01-20] MEDS: Zestril 10 MG PO SCH (09:56)
[2023-01-20] MEDS ORDERED: NON-FORMULARY ITEM (Omeprazole [Omeprazole] 10 MG Capsule.Dr) PO SCH (10:00)
[2023-01-20] MEDS ORDERED: ROCEPHIN 1 Gm-D5w 50 ml Bag** 1 G/50 ML IVPB IV SCH ×2 (10:00)
[2023-01-20] MEDS: Zithromax 500 MG/ 250 ML NaCl Premix 500 MG/250 ML IVPB IV SCH (10:26)
[2023-01-20 11:22] VITALS: BP 143/67; PULSE 108; O2SAT 92
--- NOTE | 2023-01-20 12:43 | PCM.DS ---
Discharge Summary Date of Admission: 01/19/23 13:05 Admitting Physician: ODALYS DELANEY Primary Care Provider: ODALYS DELANEY Allergies Allergies aspirin Allergy (Verified 01/19/23 08:32) gabapentin Allergy (Verified 01/19/23 08:32) naproxen Allergy (Verified 01/19/23 08:32) Penicillins Allergy (Verified 01/19/23 08:32) Hospital Summary - Hospital Course Hospital Course: Chief Complaint Diagnosis shortness of breath for 2-3 days Allergies Allergy/AdvReac Type Severity Reaction Status Date / Time aspirin Allergy Verified 01/19/23 08:32 gabapentin Allergy Verified 01/19/23 08:32 naproxen Allergy Verified 01/19/23 08:32 Penicillins Allergy Verified 01/19/23 08:32 Vital Signs (Last 24 hours) Temp Pulse Resp BP Pulse Ox 01/20/23 11:00 97.1 F 108 H 19 143/67 92 L 01/20/23 07:32 95.2 F 91 H 19 139/90 96 01/20/23 07:22 81 20 98 01/20/23 03:55 97.2 F 84 22 147/79 91 L 01/20/23 03:10 102 H 20 91 L 01/19/23 23:52 84 16 95 01/19/23 23:20 98.1 F 95 H 24 130/93 98 01/19/23 19:41 97.0 F 82 20 136/65 95 01/19/23 19:15 93 H 18 97 01/19/23 16:00 97.3 F 77 18 134/64 96 01/19/23 15:46 80 24 97 01/19/23 13:39 97.1 F 80 17 131/76 97 01/19/23 13:18 97.1 F 80 17 131/76 97 Home Medications Medication Instructions Recorded Confirmed Last Taken Type Montelukast Sodium 10 mg 10 mg PO HS 01/19/23 01/19/23 01/18/23 History [Singulair 10 MG] Omeprazole 20 mg PO HS 01/19/23 01/19/23 01/18/23 History Hydrocodone/Chlorphen P-Stirex 5 ml PO [id number] PRN 6 Days #60 ml 01/20/23 Unknown Rx [Hydrocodone-Chlorph ER Susp MDD 10 ML (TUSSIONEX)] Current Medications Generic Name Dose Route Start Last Admin Trade Name Freq PRN Reason Stop Dose Admin Acetaminophen 650 mg 01/19/23 15:51 01/19/23 16:12 Acetaminophen 325 Mg Tablet PO 02/18/23 15:50 650 mg Q4H PRN PRN Administration PAIN AND/OR FEVER Acetaminophen 1,000 mg 01/19/23 16:00 Acetaminophen 500 Mg Tablet PO 02/18/23 15:59 BID PRN PRN PAIN Albuterol Sulfate 2 puff 01/19/23 16:00 Albuterol Common Canister Inhaler 02/18/23 15:59 Q4-6HPRN PRN SHORTNESS OF BREATH/WHEEZING Albuterol/Ipratropium 3 ml 01/19/23 15:00 01/20/23 10:59 Ipratropium/Albuterol Sulfate 3 Ml Ampul.Neb 02/18/23 14:59 Not Given Q4HRT MELISSA Methylprednisolone Sodium 0 mg 01/19/23 22:00 01/20/23 09:55 Succinate 125 mg/ Sterile IV 02/18/23 21:59 125 mg Water 2 ml Q12HT MELSISA Administration Hydromorphone HCl 1 mg 01/19/23 16:43 01/20/23 08:34 Hydromorphone 1 Mg/1ml Inj 1 Mg/Ml Syringe IV 01/24/23 16:42 1 mg Q4H PRN PRN Administration PAIN Azithromycin 500 mg in 250 mls @ 250 mls/hr 01/19/23 17:00 01/20/23 10:26 Zithromax 500 Mg/ 250 Ml Nacl Premix IV 02/18/23 16:59 250 mls/hr Q24H10 MELISSA Administration Ceftriaxone Sodium/Dextrose 1 g in 50 mls @ 100 mls/hr 01/20/23 10:00 01/20/23 09:56 Rocephin 1 Gm-D5w 50 Ml Bag IV 01/23/23 09:59 100 mls/hr Q24H10 MELISSA Administration Promethazine HCl 12.5 mg/ 100.5 mls @ 201 mls/hr 01/20/23 08:55 01/20/23 09:25 Sodium Chloride IV 02/19/23 08:54 201 mls/hr Q6H PRN PRN Administration UNCONTROLLED NAUSEA Lisinopril 10 mg 01/19/23 17:00 01/20/23 09:56 Lisinopril 10 Mg Tablet PO 02/18/23 16:59 10 mg DAILY MELISSA Administration Montelukast Sodium 10 mg 01/19/23 22:00 01/19/23 22:20 Montelukast Sodium 10 Mg Tablet PO 02/18/23 21:59 10 mg HS MELISSA Administration Ondansetron HCl 4 mg 01/19/23 19:44 01/20/23 08:28 Ondansetron Hcl 4 Mg/2 Ml Vial IV 02/18/23 19:43 4 mg Q4H PRN PRN Administration NAUSEA/VOMITING Pantoprazole Sodium 40 mg 01/19/23 22:00 01/19/23 22:20 Protonix (Pantoprazole) 40 Mg Tablet PO 02/18/23 21:59 40 mg HS MELISSA Administration Promethazine HCl/Codeine 5 ml 01/20/23 12:45 Promethazine With Codeine 473 Ml Ml PO 02/19/23 12:44 Q6H PRN PRN NAUSEA/VOMITING Fluticasone/Salmeterol 2 puff 01/20/23 19:00 01/20/23 07:19 Fluticasone/Salmeterol 115/21 - 120 Puff Common Canister IH 02/19/23 18:59 2 puff BIDRT MELISSA Administration Discontinued Medications Generic Name Dose Route Start Last Admin Trade Name Freq PRN Reason Stop Dose Admin Methylprednisolone Sodium 0 mg 01/19/23 08:33 01/19/23 09:49 Succinate 125 mg/ Sterile IV 01/19/23 08:34 125 mg Water 2 ml STAT ONE Administration Methylprednisolone Sodium 0 mg 01/19/23 14:00 Succinate 125 mg/ Sterile IV 02/18/23 13:59 Water 2 ml Q12HT MELSISA Hydromorphone HCl 1 mg 01/19/23 10:00 01/19/23 10:04 Hydromorphone 1 Mg/1ml Inj 1 Mg/Ml Syringe IV 01/19/23 10:01 1 mg STAT ONE Administration Hydromorphone HCl Confirm 01/19/23 10:02 Hydromorphone 1 Mg/1ml Inj 1 Mg/Ml Syringe Administered 01/19/23 10:03 Dose 1 mg .ROUTE .STK-MED ONE Ceftriaxone Sodium/Dextrose 1 g in 50 mls @ 100 mls/hr 01/20/23 10:00 01/19/23 12:11 Rocephin 1 Gm-D5w 50 Ml Bag IV 01/23/23 09:59 Infused Q24H10 MELISSA Infusion Ceftriaxone Sodium/Dextrose Confirm 01/19/23 11:37 Rocephin 1 Gm-D5w 50 Ml Bag Administered 01/19/23 11:38 Dose 1 g in 50 mls @ ud IV .STK-MED ONE Methylprednisolone Sodium Succinate Confirm 01/19/23 09:47 Methylprednis Sod Succ 125 Mg/2 Ml Vial Administered 01/19/23 09:48 Dose 125 mg .ROUTE .STK-MED ONE Fluticasone/Salmeterol 2 puff 01/19/23 19:00 01/19/23 19:15 Fluticasone/Salmeterol 60 Puff Common Canister IH 02/18/23 18:59 2 puff BIDRT MELISSA Administration Sterile Water Confirm 01/19/23 09:47 Water For Injection,Sterile 10 Ml Vial Administered 01/19/23 09:48 Dose 10 ml IJ .STK-MED ONE Intake & Output (Last 24 hours) 01/18/23 01/19/23 01/20/23 01/21/23 11:59 11:59 11:59 11:59 Intake Total 2080 Output Total 1100 Balance 980 Weight 94.4 kg 75 kg Microbiology Results (Last 24 hours) 01/19/23 23:14 Urine, Void Urine Culture - Pending Laboratory Results (Last 24 hours) 01/20/23 01/20/23 01/19/23 04:26 04:26 23:14 WBC 6.9 RBC 4.65 Hgb 14.2 Hct 45.3 MCV 97.4 MCH 30.5 MCHC 31.3 L RDW 12.0 Plt Count 381 MPV 8.9 Sodium 142 Potassium 4.5 D Chloride 105 Carbon Dioxide 25 Anion Gap 17.7 H BUN 14 Creatinine 0.69 Estimated GFR > 60.0 Glucose 212 H Lactic Acid Calcium 9.2 Total Bilirubin 0.50 AST 30 ALT 23 Alkaline Phosphatase 59 Troponin I Serum Total Protein 7.9 Albumin 4.6 Urine Color Yellow Urine Appearance Clear Urine pH 6.5 Ur Specific [place] 1.015 Urine Protein Negative Urine Glucose (UA) Negative Urine Ketones Negative Urine Blood Trace Urine Nitrite Negative Urine Bilirubin Negative Urine Urobilinogen 0.2 Ur Leukocyte Esterase Trace A U Hyaline Cast (Auto) NONE SEEN Urine Microscopic RBC 3-5 Urine Microscopic WBC 0-2 Ur Epithelial Cells None Seen Urine Bacteria None Seen Urine Culture Reflexed YES 01/19/23 01/19/23 01/19/23 19:10 14:07 10:48 WBC RBC Hgb Hct MCV MCH MCHC RDW Plt Count MPV Sodium Potassium Chloride Carbon Dioxide Anion Gap BUN Creatinine Estimated GFR Glucose Lactic Acid 2.1 H Calcium Total Bilirubin AST ALT Alkaline Phosphatase Troponin I < 0.012 < 0.012 Serum Total Protein Albumin Urine Color Urine Appearance Urine pH Ur Specific [place] Urine Protein Urine Glucose (UA) Urine Ketones Urine Blood Urine Nitrite Urine Bilirubin Urine Urobilinogen Ur Leukocyte Esterase U Hyaline Cast (Auto) Urine Microscopic RBC Urine Microscopic WBC Ur Epithelial Cells Urine Bacteria Urine Culture Reflexed Orders (Last 24 hours) Category Date Time Status Code Status Order ROUTINE Care 01/19/23 13:[address] in Observation ROUTINE Care 01/19/23 13:39 Active House Regular Diet Diet 01/19/23 Dinner Active CBC AM.LAB Lab 01/20/23 04:26 Completed CMP AM.LAB Lab 01/20/23 04:26 Completed CULTURE,URINE Stat Lab 01/19/23 23:14 Received TROPONIN Q4H Lab 01/19/23 14:07 Completed TROPONIN Q4H Lab 01/19/23 19:10 Completed UA W/RFX UR CULTURE Stat Lab 01/19/23 23:14 Completed Acetaminophen 325 mg [Tylenol 325 mg] Med 01/19/23 15:51 Active 650 mg PO Q4H PRN PRN Acetaminophen 500 mg [Tylenol Extra Strength 500 mg* Med 01/19/23 16:00 Active ] 1,000 mg PO BID PRN PRN Albuterol Common Canister [Ventolin Common Canister* Med 01/19/23 16:00 Active ] 2 puff IH Q4-6HPRN PRN Albuterol/Ipratropium 3ml Neb* [DUONEB 0.5-3 MG/3 ml Med 01/19/23 15:00 Active Neb] 3 ml IH Q4HRT Azithromycin 500 mg/250 ml [Zithromax 500 MG/ 250 ML Med 01/19/23 17:00 Active NaCl Premix] 500 mg in 250 ml IV Q24H10 Ceftriaxone 1 GM/50 ML PREMIX* [ROCEPHIN 1 Gm-D5w 50 ml Med 01/20/23 10:00 Active Bag] 1 g in 50 ml IV Q24H10 Ceftriaxone 1 GM/50 ML PREMIX* [ROCEPHIN 1 Gm-D5w 50 ml Med 01/20/23 10:00 Discontinued Bag] 1 g in 50 ml IV Q24H10 Fluticasone/Salmeterol 115/21 [Advair Hfa 115/21 Common Med 01/20/23 19:00 Active canister*] 2 puff IH BIDRT Fluticasone/Salmeterol 45/21 [Advair Hfa 45/21 Common Med 01/19/23 19:00 Discontinued Canister*] 2 puff IH BIDRT Hydromorphone 1 mg/1Ml Inj [Hydromorphone 1 mg/ml Med 01/19/23 16:43 Active Injection] 1 mg IV Q4H PRN PRN Lisinopril 10 mg [Zestril 10 MG] Med 01/19/23 17:00 Active 10 mg PO DAILY Methylprednis Sod Succ 125 mg* [solu-MEDROL] 125 mg Med 01/19/23 14:00 Discontinued Water For Injection,Sterile [Sterile H2O 10 ml] 2 ml IV Q12HT Methylprednis Sod Succ 125 mg* [solu-MEDROL] 125 mg Med 01/19/23 22:00 Active Water For Injection,Sterile [Sterile H2O 10 ml] 2 ml IV Q12HT Montelukast Sodium 10 mg [Singulair 10 MG] Med 01/19/23 22:00 Active 10 mg PO HS Ondansetron HCl 4 mg/2 ml [Zofran 4 MG/2 ML VIAL] Med 01/19/23 19:44 Active 4 mg IV Q4H PRN PRN PANTOPRAZOLE 40 mg Tablet [Protonix 40MG Tablet] Med 01/19/23 22:00 Active 40 mg PO HS Promethazine HCl 25 mg Amp [Phenergan 25 MG INJ] Med 01/20/23 08:55 Active 12.5 mg NaCl 0.9% [Sodium Chloride 0.9%] 100 ml IV Q6H PRN Promethazine W Codeine Syr [Phenergan with Codeine Med 01/20/23 12:45 Ordered Syrup] 5 ml PO Q6H Pulse Oximetry ROUTINE RT 01/19/23 13:31 Active Respiratory Therapy Assessment DAILY RT 01/20/23 07:00 Active Patient Care Notes (Last 24 hours) 01/19/23 16:06 TABLET MAKING MACHINE OPERATOR HELPER Note by Amber Solis PT CALLED 'S OFFICE DEMANDING PAIN MEDS STRONGER THAN TYLENOL. HANNA AMAYA FROM DR MARTIN OFFICE CALLED ACU AND INFORMED THIS TABLET MAKING MACHINE OPERATOR HELPER THIS PT HAD CALLED THE OFFICE DEMANDING STRONGER PAIN MEDICATION. Initialized on 01/19/23 16:06 - END OF NOTE 01/19/23 15:48 TABLET MAKING MACHINE OPERATOR HELPER Note by Amber Solis PT CALLED THIS TABLET MAKING MACHINE OPERATOR HELPER ASKING TO REMOVE RT (REGI) FROM ROOM. PT STATED SHE DID NOT WANT REGI IN THE ROOM. RT REGI LEFT PT ROOM AND INFORMED PT THAT SHE WOULD NOT GET A BREATHING TREATMENT UNTIL THE NEXT SHIFT AT 1900. RT REGI THEN WENT BACK INTO PT ROOM AND ASKED PT IF SHE WAS REFUSING A TREATMENT. PT STATED YES AND THE INSISTED RT REGI LEFT HER ROOM.THIS TABLET MAKING MACHINE OPERATOR HELPER THEN ENTERED THE ROOM AND SPOKE TO THE PT. PT WAS POLITE TO THIS TABLET MAKING MACHINE OPERATOR HELPER AND STATED THAT SHE HAD SPENT 17 MONTHS IN PRISON AND WAS NOT COMFORTABLE WITH SOMEONE TAKING HER MEDICINES FROM HER.THIS TABLET MAKING MACHINE OPERATOR HELPER ASKED THE PT IF OUR PHARMACIST COULD COME DOWN AND VIEW THE MEDICATION IN THE ROOM. PT STATED THAT WOULD BE FINE. MAGY PEDERSEN THEN ENTERED THE ROOM AND EXAMINED THE MEDICATION WITH NO ISSUES. PT THEN STATED SHE WILL DO A TREATMENT FROM RT LONG IT IS NOT REGI. Initialized on 01/19/23 15:48 - END OF NOTE 01/19/23 15:29 Respiratory Note by Paulette Ontiveros 1525 WENT IN PTS ROOM TO DO INITAL ASSESMENT. WE DISCUSSED HER HOME RESPIRATORY MEDS. SHE STATED SHE WANTED TO USE HER OWN MDI. WHEN I EXPLAINED I WOULD HAVE TO HAVE OUR PHARMIST CHECK HER MEDS , SHE TOLD ME SHE DIDNT TRUST ANYONE AND FOR ME TO LEAVE HER ROOM AND CALLED ON THE RN CALL LIGHT TO HAVE ME LEAVE. I TRIED TO EXPLAIN THAT I WOULD GIVE HER A TREATMENT THEN LEAVE. SHE WANTED ME OUT OF HER ROOM. ABOUT 5MIN LATER I WENT BACK TO HER ROOM TO SEE IF I COULKD GIVE HER DUONEB TO HER. AGAIN SHE DID NOT WANT ME IN HER ROOM AND TO LEAVE. RN NOTIFIED, RN RESEARCH NOTIFIED. PT WAS VERY DISRESPECTFUL. EVEN AFTER TRYING TO REASON WITH HER. SHE SAYS SHE TRUST NO ONE . AND POINTED HER FINGER TWORDS THE DOOR TO GET OUT. Initialized on 01/19/23 15:29 - END OF NOTE - Vitals & Intake/Output Vital Signs: Vital Signs Temperature 97.1 F 01/20/23 11:00 Pulse Rate 108 H 01/20/23 11:00 Respiratory Rate 19 01/20/23 11:00 Blood Pressure 143/67 01/20/23 11:00 O2 Sat by Pulse Oximetry 92 L 01/20/23 11:00 Intake & Output: Intake & Output 01/18/23 01/19/23 01/20/23 01/21/23 11:59 11:59 11:59 11:59 Intake Total 2080 Output Total 1100 Balance 980 Weight 94.4 kg 75 kg - Lab Result Diagrams: 01/20/23 04:26 01/20/23 04:26 Lab Results-Last 24 Hrs: Lab Results-Last 24 Hours 01/19/23 01/19/23 01/19/23 Range/Units 10:48 14:07 19:10 WBC (4.0-10.5) x10^3/uL RBC (4.1-5.4) x10^6/uL Hgb (12.0-16.0) g/dL Hct (35-47) % MCV (78-100) fL MCH (26-32) pg MCHC (32-36) g/dL RDW (11.5-14.0) % Plt Count (150-450) x10^3/uL MPV (7.5-11.0) fL Sodium (137-145) mmol/L Potassium (3.5-5.1) mmol/L Chloride (98-107) mmol/L Carbon Dioxide (22-30) mmol/L Anion Gap (5-15) MEQ/L BUN (7-17) mg/dL Creatinine (0.52-1.04) mg/dL Estimated GFR ML/MIN Glucose (74-106) mg/dL Lactic Acid 2.1 H (0.4-2.0) Calcium (8.4-10.2) mg/dL Total Bilirubin (0.2-1.3) mg/dL AST (14-36) U/L ALT (0-35) U/L Alkaline Phosphatase (38-126) U/L Troponin I < 0.012 < 0.012 (0.000-0.034) ng/mL Serum Total Protein (6.3-8.2) g/dL Albumin (3.5-5.0) g/dL Urine Color (Yellow) Urine Appearance (Clear) Urine pH (4.6-8.0) Ur Specific [place] (1.005-1.030) Urine Protein (Negative) Urine Glucose (UA) (Negative) mg/dL Urine Ketones (Negative) Urine Blood (Negative) Urine Nitrite (Negative) Urine Bilirubin (Negative) Urine Urobilinogen (0.2) mg/dL Ur Leukocyte Esterase (Negative) U Hyaline Cast (Auto) (0-2) /LPF Urine Microscopic RBC (0-5) /HPF Urine Microscopic WBC (0-5) /HPF Ur Epithelial Cells (None Seen) /HPF Urine Bacteria (None Seen) /HPF Urine Culture Reflexed (NO) 01/19/23 01/20/23 01/20/23 Range/Units 23:14 04:26 04:26 WBC 6.9 (4.0-10.5) x10^3/uL RBC 4.65 (4.1-5.4) x10^6/uL Hgb 14.2 (12.0-16.0) g/dL Hct 45.3 (35-47) % MCV 97.4 (78-100) fL MCH 30.5 (26-32) pg MCHC 31.3 L (32-36) g/dL RDW 12.0 (11.5-14.0) % Plt Count 381 (150-450) x10^3/uL MPV 8.9 (7.5-11.0) fL Sodium 142 (137-145) mmol/L Potassium 4.5 D (3.5-5.1) mmol/L Chloride 105 (98-107) mmol/L Carbon Dioxide 25 (22-30) mmol/L Anion Gap 17.7 H (5-15) MEQ/L BUN 14 (7-17) mg/dL Creatinine 0.69 (0.52-1.04) mg/dL Estimated GFR > 60.0 ML/MIN Glucose 212 H (74-106) mg/dL Lactic Acid (0.4-2.0) Calcium 9.2 (8.4-10.2) mg/dL Total Bilirubin 0.50 (0.2-1.3) mg/dL AST 30 (14-36) U/L ALT 23 (0-35) U/L Alkaline Phosphatase 59 (38-126) U/L Troponin I (0.000-0.034) ng/mL Serum Total Protein 7.9 (6.3-8.2) g/dL Albumin 4.6 (3.5-5.0) g/dL Urine Color Yellow (Yellow) Urine Appearance Clear (Clear) Urine pH 6.5 (4.6-8.0) Ur Specific [place] 1.015 (1.005-1.030) Urine Protein Negative (Negative) Urine Glucose (UA) Negative (Negative) mg/dL Urine Ketones Negative (Negative) Urine Blood Trace (Negative) Urine Nitrite Negative (Negative) Urine Bilirubin Negative (Negative) Urine Urobilinogen 0.2 (0.2) mg/dL Ur Leukocyte Esterase Trace A (Negative) U Hyaline Cast (Auto) NONE SEEN (0-2) /LPF Urine Microscopic RBC 3-5 (0-5) /HPF Urine Microscopic WBC 0-2 (0-5) /HPF Ur Epithelial Cells None Seen (None Seen) /HPF Urine Bacteria None Seen (None Seen) /HPF Urine Culture Reflexed YES (NO) - Radiology Exams Ordered Rad Exams-Entire Visit: Radiology Procedures Category Date Time Status CHEST 1 VIEW (PORTABLE) Stat Exams 01/19/23 08:34 Completed - Procedures and Test Procedures and Tests throughout Hospitalization: Therapy Orders & Screens 01/19/23 11:18 Oxygen Nasal Cannula 6 lpm Comment: 01/20/23 07:00 Respiratory Therapy Assessment DAILY Comment: Diagnosis: COPD Exacerbation Discharge Exam General Appearance: no apparent distress, alert Neurologic Exam: alert, oriented x 3, cooperative, normal mood/affect, nml cerebellar function, sensation nml, No motor deficits Eye Exam: PERRL, EOMI, eyes nml inspection Ears, Nose, Throat Exam: normal ENT inspection, pharynx normal, moist mucous membranes Neck Exam: normal inspection, non-tender, supple, full range of motion Respiratory Exam: diminished breath sounds, No respiratory distress Cardiovascular Exam: regular rate/rhythm, normal heart sounds Gastrointestinal/Abdomen Exam: soft, No tenderness, No mass Pelvic Exam: deferred Rectal Exam: deferred Back Exam: normal inspection, normal range of motion, No CVA tenderness, No vertebral tenderness Extremity Exam: normal inspection, normal range of motion Skin Exam: normal color, warm, dry Final Diagnosis/Problem List - Final Discharge Diagnosis/Problem (1) COPD exacerbation Current Visit: Yes Status: Resolved Code(s): J44.1 - CHRONIC OBSTRUCTIVE PULMONARY DISEASE W (ACUTE) EXACERBATION - Discharge Discharge Date: 01/20/23 Disposition: Home, Self-Care Condition: Stable Prescriptions: New Hydrocodone/Chlorphen P-Stirex [Hydrocodone-Chlorph ER Susp (TUSSIONEX)] 5 ml PO [id number] PRN 6 Days #60 ml MDD 10 ML PRN Reason: Cough Azithromycin [Azithromycin 250 mg Pack] 250 mg PO UD #6 tablet Methylprednisolone Packet [Medrol Dosepack] 4 mg PO UD #21 packet Continue Fluticasone/Salmeterol [Advair 100-50 Diskus] 1 puffs IH BID Acetaminophen [Tylenol Extra Strength] 1,000 mg PO BID PRN PRN PRN Reason: Pain Lisinopril 10 mg [Zestril 10 MG] 1 tab PO DAILY Albuterol Common Canister [Ventolin Common Canister] 2 puff IH Q4-6HPRN PRN 7 Days #1 unit PRN Reason: Shortness Of Breath/Wheezing Montelukast Sodium 10 mg [Singulair 10 MG] 10 mg PO HS Omeprazole 20 mg PO HS Follow up with: VELMA MOTTA MD [ACTIVE STAFF] - 7 Days
[2023-01-20] MEDS ORDERED: PHENERGAN WITH CODEINE SYRUP PO PRN (12:45)
[2023-01-20] MEDS ORDERED: Advair Hfa 115/21 Common canister IH SCH (19:00)
== END 2023-01-20 13:22 | disposition home or self-care (01) ==
LOC: ED 08:28 → MED SURG 13:05
PROVIDERS: ADMIT General Practice; ATTEND General Practice
DX: J44.1 Chronic obstructive pulmonary disease with (acute) exacerbation (principal); I10 Essential (primary) hypertension; Z79.899 Other long term (current) drug therapy; Z20.828 Contact with and (suspected) exposure to other viral communicable diseases; Z72.0 Tobacco use; Z85.42 Personal history of malignant neoplasm of other parts of uterus; Z85.43 Personal history of malignant neoplasm of ovary; Z85.3 Personal history of malignant neoplasm of breast
CPT/HCPCS: 0241U; 36000; 36415; 36600; 71045; 80053; 81001; 82375; 82803; 83605; 83880; 84484; 85025; 85027; 85379; 85610; 85730; 87086; 93005; 94640; 94760; 96365; 96374; 96375; 99285; G0378; J0456; J0696; J1170; J2405; J2550; J2930; A9270-GY

== ENCOUNTER 2023-02-24 08:23 | Emergency (ER) | payer OTHER ==
[2023-02-24] MEDS ORDERED: BENADRYL 50 MG/ML IV ONE ×2 (08:31→09:01)
[2023-02-24] MEDS ORDERED: Nitrostat 0.4 MG (ED) SL ONE (08:31)
[2023-02-24] MEDS ORDERED: Zofran 4 MG/2 ML VIAL IV ONE (08:31)
[2023-02-24] MEDS ORDERED: MORPHINE SULFATE 4 MG INJ IV ONE (09:00)
[2023-02-24] MEDS ORDERED: Sodium Chloride 0.9% 1000 ML 1,000 ML IV STA (09:01)
[2023-02-24] MEDS ORDERED: BENADRYL 50 MG/ML ONE (09:05)
[2023-02-24] MEDS ORDERED: MORPHINE SULFATE 4 MG INJ ONE (09:06)
[2023-02-24] MEDS ORDERED: Sodium Chloride 0.9% 1000 ML 1,000 ML ONE (09:06)
--- NOTE | 2023-02-24 09:11 | ERPHSYRPT ---
- History of Present Illness Time Seen by Provider: 02/24/23 08:30 Source: patient Exam Limitations: no limitations Patient Subjective Stated Complaint: PT HERE FOR RIGHT ABD PAIN FOR 2 DAYS NOW, N BM FOR 4 DAYS, NAUSEA Triage Nursing Assessment: PT ALERT,ANXIOUS RESP EASY, SKIN W/D/P. ABD ROUND, SOFT. NO EDEMA NOTED , Physician History: Patient here for abdominal pain. Right lower quadrant. No falls or other traum a. Patient states has been going on for 2 days. 4 days of constipation. Patient denies any fever chills, systemic signs of illness. She has not vomited at all. She has never had this problem for. She has not tried anything to make it better or worse. States that Tylenol has only helped somewhat at home. She has not called her PCP about this. Allergies/Adverse Reactions: aspirin Allergy (Verified 02/24/23 08:52) gabapentin Allergy (Verified 02/24/23 08:52) naproxen Allergy (Verified 02/24/23 08:52) Penicillins Allergy (Verified 02/24/23 08:52) Home Medications: Lisinopril 10 mg [Zestril 10 MG] 20 mg PO DAILY 07/31/22 [History] Omeprazole 20 mg PO BID 01/19/23 [History] Cholecalciferol (Vitamin D3) [Decara] 1 cap PO DAILY 02/17/23 [History] Hx Tetanus, Diphtheria Vaccination/Date Given: No Hx Influenza Vaccination/Date Given: Yes Hx Pneumococcal Vaccination/Date Given: No Immunizations Up to Date: Yes Travel Risk - International Travel Have you traveled outside of the country in past 3 weeks: No - Coronavirus Screening Are you exhibiting any of the following symptoms?: No Close contact with a COVID-19 positive Pt in past 14-21 Days: No - Vaccine Status Have you recieved a Covid-19 vaccination: No - Review of Systems Constitutional: No Fever, No Chills Eyes: No Symptoms Ears, Nose, & Throat: No Symptoms Respiratory: No Cough, No Dyspnea Cardiac: No Chest Pain, No Edema, No Syncope Abdominal/Gastrointestinal: Abdominal Pain, No Nausea, No Vomiting, No Diarrhea Genitourinary Symptoms: No Dysuria Musculoskeletal: No Back Pain, No Neck Pain Skin: No Rash Neurological: No Dizziness, No Focal Weakness, No Sensory Changes Psychological: No Symptoms Endocrine: No Symptoms All Other Systems: Reviewed and Negative - Past Medical History Pertinent Past Medical History: Yes ENT History: Other Cardiac History: Hypertension Respiratory History: Asthma, Bronchitis, COPD Musculoskeletal History: Other GI Medical History: Diverticulitis, GERD History: No Pertinent History Female Reproductive Disorders: Ovarian Cancer, Uterine Cancer Other Medical History: cancer tongue, breast and urterinE - Past Surgical History Past Surgical History: Yes Gastrointestinal: Hernia Repair Musculoskeletal: Orthopedic Surgery Female Surgical History: Hysterectomy Other Surgical History: acl repair knee , lumpectomy 3x, tongue tumor removed - Social History Smoking Status: Current every day smoker Exposure to second hand smoke: Yes Drug Use: none Patient Lives Alone: No - Nursing Vital Signs Nursing Vital Signs: Initial Vital Signs Temperature 97.3 F 02/24/23 08:54 Pulse Rate 82 02/24/23 08:54 Blood Pressure 123/84 02/24/23 08:54 O2 Sat by Pulse Oximetry 98 02/24/23 08:54 Pain Scale Pain Intensity 2 - Physical Exam General Appearance: no apparent distress, alert Eye Exam: PERRL/EOMI, eyes nml inspection Ears, Nose, Throat Exam: normal ENT inspection, TMs normal, pharynx normal, moist mucous membranes Neck Exam: normal inspection, non-tender, supple, full range of motion Respiratory Exam: normal breath sounds, lungs clear, No respiratory distress Cardiovascular Exam: regular rate/rhythm, normal heart sounds, normal peripheral pulses Gastrointestinal/Abdomen Exam: soft, normal bowel sounds, tenderness (Minimal right lower quadrant tenderness to palpation without rebound or guarding), No mass Back Exam: normal inspection, normal range of motion, No CVA tenderness, No vertebral tenderness Extremity Exam: normal inspection, normal range of motion, pelvis stable Neurologic Exam: alert, oriented x 3, cooperative, normal mood/affect, nml cerebellar function, nml station & gait, sensation nml, No motor deficits Skin Exam: normal color, warm, dry, No rash Lymphatic Exam: No adenopathy SpO2: 98 - Course Nursing assessment & vital signs reviewed: Yes EKG Interpreted by Me: Sinus Rhythm Ordered Tests: Active Orders 24 hr Category Date Time Status Shower Screen Installer STAT Care 02/24/23 09:02 Active EKG-ER Only STAT Care 02/24/23 09:01 Active IV Insertion STAT Care 02/24/23 09:01 Active ABDOMEN AND PELVIS W CONTRAST [CT] Stat Exams 02/24/23 11:29 Completed CHEST 1 VIEW (PORTABLE) Stat Exams 02/24/23 09:01 Completed CBC W DIFF Stat Lab 02/24/23 09:01 Completed CMP Stat Lab 02/24/23 11:00 Completed LIPASE Stat Lab 02/24/23 11:00 Completed NT PRO BNPII Stat Lab 02/24/23 11:00 Completed TROPONIN Q4H Lab 02/24/23 11:00 Completed UA W/RFX UR CULTURE Stat Lab 02/24/23 09:31 Completed Transfer Order Routine Transfer 02/24/23 Ordered Medication Summary Discontinued Medications Generic Name Dose Route Start Last Admin Trade Name Freq PRN Reason Stop Dose Admin Aspirin 324 mg 02/24/23 08:31 02/24/23 12:12 Aspirin 81 Mg Tab.Chew PO 02/24/23 08:32 Not Given STAT ONE Diphenhydramine HCl 25 mg 02/24/23 08:31 02/24/23 11:02 Diphenhydramine Hcl 50 Mg/Ml Vial IV 02/24/23 08:32 Not Given STAT ONE Diphenhydramine HCl 25 mg 02/24/23 09:01 02/24/23 10:59 Diphenhydramine Hcl 50 Mg/Ml Vial IV 02/24/23 09:02 25 mg STAT ONE Administration Diphenhydramine HCl Confirm 02/24/23 09:05 Diphenhydramine Hcl 50 Mg/Ml Vial Administered 02/24/23 09:06 Dose 50 mg .ROUTE .STK-MED ONE Droperidol 1.25 mg 02/24/23 08:31 02/24/23 11:03 Droperidol 5 Mg/2 Ml Vial IV 02/24/23 08:32 Not Given STAT ONE Sodium Chloride 1,000 mls @ 999 mls/hr 02/24/23 09:01 02/24/23 13:20 Sodium Chloride 0.9% 1000 Ml IV 02/24/23 10:01 Infused .Q1H1M STA Infusion Sodium Chloride Confirm 02/24/23 09:06 Sodium Chloride 0.9% 1000 Ml Administered 02/24/23 09:07 Dose 1,000 mls @ ud .ROUTE .STK-MED ONE Morphine Sulfate 4 mg 02/24/23 09:00 02/24/23 11:00 Morphine Sulfate 4 Mg/Ml Injection IV 02/24/23 09:01 4 mg STAT ONE Administration Morphine Sulfate Confirm 02/24/23 09:06 Morphine Sulfate 4 Mg/Ml Injection Administered 02/24/23 09:07 Dose 4 mg .ROUTE .STK-MED ONE Nitroglycerin 0.4 mg 02/24/23 08:31 02/24/23 11:03 Nitroglycerin 0.4 Mg (Ed) 0.4 Mg Tab.Subl SL 02/24/23 08:32 Not Given STAT ONE Ondansetron HCl 4 mg 02/24/23 08:31 02/24/23 11:04 Ondansetron Hcl 4 Mg/2 Ml Vial IV 02/24/23 08:32 Not Given STAT ONE Ondansetron HCl Confirm 02/24/23 11:04 Ondansetron Hcl 4 Mg/2 Ml Vial Administered 02/24/23 11:05 Dose 4 mg .ROUTE .STK-MED ONE Lab/Rad Data: Laboratory Result Diagrams 02/24/23 09:01 02/24/23 11:00 Laboratory Results 02/24/23 02/24/23 02/24/23 Range/Units 11:00 11:00 09:31 WBC (4.0-10.5) x10^3/uL RBC (4.1-5.4) x10^6/uL Hgb (12.0-16.0) g/dL Hct (35-47) % MCV (78-100) fL MCH (26-32) pg MCHC (32-36) g/dL RDW (11.5-14.0) % Plt Count (150-450) x10^3/uL MPV (7.5-11.0) fL Gran % (36.0-66.0) % Immature Gran % (Auto) (0.00-0.4) % Nucleat RBC Rel Count (0.00-0.1) % Eos # (Auto) (0-0.5) x10^3/uL Immature Gran # (Auto) (0.00-0.03) x10^3u/L Absolute Lymphs (auto) (1.0-4.6) x10^3/uL Absolute Monos (auto) (0.0-1.3) x10^3/uL Absolute Nucleated RBC (0.00-0.01) x10^3u/L Lymphocytes % (24.0-44.0) % Monocytes % (0.0-12.0) % Eosinophils % (0.00-5.0) % Basophils % (0.0-0.4) % Absolute Granulocytes (1.4-6.9) x10^3/uL Basophils # (0-0.4) x10^3/uL Sodium 141 (137-145) mmol/L Potassium 4.2 (3.5-5.1) mmol/L Chloride 106 (98-107) mmol/L Carbon Dioxide 25 (22-30) mmol/L Anion Gap 14.5 (5-15) MEQ/L BUN 12 (7-17) mg/dL Creatinine 0.57 (0.52-1.04) mg/dL Estimated GFR > 60.0 ML/MIN Glucose 103 (74-106) mg/dL Calcium 8.9 (8.4-10.2) mg/dL Total Bilirubin 0.80 (0.2-1.3) mg/dL AST 27 (14-36) U/L ALT 20 (0-35) U/L Alkaline Phosphatase 68 (38-126) U/L Troponin I < 0.012 (0.000-0.034) ng/mL NT-Pro-B Natriuret Pep 169 (<300) pg/mL Serum Total Protein 7.2 (6.3-8.2) g/dL Albumin 4.1 (3.5-5.0) g/dL Lipase 111 (23-300) U/L Urine Color Yellow (Yellow) Urine Appearance Clear (Clear) Urine pH 6.0 (4.6-8.0) Ur Specific [place] <=1.005 (1.005-1.030) Urine Protein Negative (Negative) Urine Glucose (UA) Negative (Negative) mg/dL Urine Ketones Negative (Negative) Urine Blood Negative (Negative) Urine Nitrite Negative (Negative) Urine Bilirubin Negative (Negative) Urine Urobilinogen 0.2 (0.2) mg/dL Ur Leukocyte Esterase Negative (Negative) U Hyaline Cast (Auto) NONE SEEN (0-2) /LPF Urine Microscopic RBC 0-2 (0-5) /HPF Urine Microscopic WBC 0-2 (0-5) /HPF Ur Epithelial Cells None Seen (None Seen) /HPF Urine Bacteria None Seen (None Seen) /HPF Urine Culture Reflexed NO (NO) 02/24/23 Range/Units 09:01 WBC 9.7 (4.0-10.5) x10^3/uL RBC 4.90 (4.1-5.4) x10^6/uL Hgb 14.9 (12.0-16.0) g/dL Hct 47.1 H (35-47) % MCV 96.1 (78-100) fL MCH 30.4 (26-32) pg MCHC 31.6 L (32-36) g/dL RDW 12.4 (11.5-14.0) % Plt Count 335 (150-450) x10^3/uL MPV 8.5 (7.5-11.0) fL Gran % 54.6 (36.0-66.0) % Immature Gran % (Auto) 0.2 (0.00-0.4) % Nucleat RBC Rel Count 0.0 (0.00-0.1) % Eos # (Auto) 0.18 (0-0.5) x10^3/uL Immature Gran # (Auto) 0.02 (0.00-0.03) x10^3u/L Absolute Lymphs (auto) 3.13 (1.0-4.6) x10^3/uL Absolute Monos (auto) 1.01 (0.0-1.3) x10^3/uL Absolute Nucleated RBC 0.00 (0.00-0.01) x10^3u/L Lymphocytes % 32.3 (24.0-44.0) % Monocytes % 10.4 (0.0-12.0) % Eosinophils % 1.9 (0.00-5.0) % Basophils % 0.6 (0.0-0.4) % Absolute Granulocytes 5.30 (1.4-6.9) x10^3/uL Basophils # 0.06 (0-0.4) x10^3/uL Sodium (137-145) mmol/L Potassium (3.5-5.1) mmol/L Chloride (98-107) mmol/L Carbon Dioxide (22-30) mmol/L Anion Gap (5-15) MEQ/L BUN (7-17) mg/dL Creatinine (0.52-1.04) mg/dL Estimated GFR ML/MIN Glucose (74-106) mg/dL Calcium (8.4-10.2) mg/dL Total Bilirubin (0.2-1.3) mg/dL AST (14-36) U/L ALT (0-35) U/L Alkaline Phosphatase (38-126) U/L Troponin I (0.000-0.034) ng/mL NT-Pro-B Natriuret Pep (<300) pg/mL Serum Total Protein (6.3-8.2) g/dL Albumin (3.5-5.0) g/dL Lipase (23-300) U/L Urine Color (Yellow) Urine Appearance (Clear) Urine pH (4.6-8.0) Ur Specific [place] (1.005-1.030) Urine Protein (Negative) Urine Glucose (UA) (Negative) mg/dL Urine Ketones (Negative) Urine Blood (Negative) Urine Nitrite (Negative) Urine Bilirubin (Negative) Urine Urobilinogen (0.2) mg/dL Ur Leukocyte Esterase (Negative) U Hyaline Cast (Auto) (0-2) /LPF Urine Microscopic RBC (0-5) /HPF Urine Microscopic WBC (0-5) /HPF Ur Epithelial Cells (None Seen) /HPF Urine Bacteria (None Seen) /HPF Urine Culture Reflexed (NO) - Progress Progress: improved Progress Note: 02/24/23 09:11 differential diagnosis includes kidney stone, compression fracture, infection, UTI, triple AAA - basic labs including: CBC, lipase, CMP, UA - insert IV for fluids, pain meds, nausea control - consider imaging: CT ab/pelvis Patient feels improved with medication. 02/24/23 14:[address] demonstrate diverticulitis. Will treat patient with antibiotic and pain medication going home. Patient has a penicillin allergy. Therefore we will have to use Cipro and Flagyl. Instead of Augmentin. I did discuss risks of Cipro with the patient. She states her understanding and feels comfortable taking Cipro. Patient will return here for any new or changing symptoms. Close follow-up with PCP. Counseled pt/family regarding: lab results, diagnosis, need for follow-up, rad results Medical Desision Making - External Record(s) Reviewed Records reviewed as a part of evaluation & management: Inpatient - Social Determinants of Health Pt's dx & treatment plan are significantly limited by SDNV: Unemployed - Diagnostic Testing Diagnostic test were ordered, analyzed, and reviewed by me: Yes Radiological Interpretation: Interpreted by me, Reviewed by me - Risk of complications Minimal Risk: Minimal risk of morbidity - Departure Departure Disposition: Home Clinical Impression: Diverticulitis Condition: Stable Critical Care Time: No Referrals: ODALYS DELANEY MD [ACTIVE STAFF] - Follow up/PCP as directed Instructions: Severe Abdominal Pain, Adult (DC) Prescriptions: Ciprofloxacin [Cipro 500 MG] 500 mg PO BID #14 tablet Cyclobenzaprine HCl 10 mg [Flexeril 10 MG] 10 mg PO TID #12 tablet Metronidazole 500 mg [Flagyl 500 MG] 500 mg PO TID #21 tablet
[2023-02-24 09:36] LABS: Appearance Clear (Clear); Bacteria None Seen /HPF (None Seen); Bilirubin Negative (Negative); Blood Negative (Negative); Epithelial Cells None Seen /HPF (None Seen); Glucose, Urine Negative (Negative); Hyaline Casts NONE SEEN /LPF (0-2); Ketones Negative (Negative); Leukocyte Esterase Negative (Negative); Nitrite Negative (Negative); Protein,Urine Dip Negative (Negative); RBC 0-2 /HPF (0-5); Specific Gravity <=1.005 (1.005-1.030); Urobilinogen 0.2 mg/dL (0.2); WBC 0-2 /HPF (0-5)
[2023-02-24 09:48] LABS: ADD URINE CULTURE? NO (NO)
[2023-02-24 10:01] VITALS: BP 137/72
--- NOTE | 2023-02-24 10:11 | XRAY ---
CLINICAL HISTORY:upper abdomen pain COMPARISON:None; TECHNIQUES:X-ray of the chest showing 1 view: AP view; FINDINGS: Patient is rotated towards the right side. Few atelectatic bands and haze is noted in the left lower zone. The right hilum is prominent, could be due to patient rotation. The left hilum is normal in size and position. Normal configuration of the mediastinum. The cardiac size is normal. The bony thorax is unremarkable. The costophrenic and cardiophrenic angles are clear. IMPRESSION: Subtle haze is noted in the left lower zone, would recommend clinical correlation to rule out pulmonary infection. Electronically Signed by: Antony Silva MD. (02/24/2023 09:09:48 [employer])
[2023-02-24] MEDS: BABY ASPIRIN 81 MG CHEW PO ONE ×2 (11:01→12:12)
[2023-02-24] MEDS ORDERED: Zofran 4 MG/2 ML VIAL ONE (11:04)
[2023-02-24 11:09] LABS: BASOPHIL % 0.6 % (0.0-0.4); Basophil (Absolute #) 0.06 x10^3/uL (0-0.4); Eosinophil % 1.9 % (0.00-5.0); Eosinophil (Absolute #) 0.18 x10^3/uL (0-0.5); Hematocrit 47.1 % (35-47); Hemoglobin 14.9 g/dL (12.0-16.0); IMMATURE GRAN # 0.02 x10^3u/L (0.00-0.03); IMMATURE GRAN % 0.2 % (0.00-0.4); Lymphocyte (Absolute #) 3.13 x10^3/uL (1.0-4.6); Lymphocytes % 32.3 % (24.0-44.0); Mean Cell Volume 96.1 fL (78-100); Mean Corpuscular Hemoglobin 30.4 pg (26-32); Mean Corpuscular Hgb Concent. 31.6 g/dL (32-36); Mean Platelet Volume 8.5 fL (7.5-11.0); Monocyte (Absolute #) 1.01 x10^3/uL (0.0-1.3); Monocytes % 10.4 % (0.0-12.0); Neutrophil % 54.6 % (36.0-66.0); Platelet Count 335 x10^3/uL (150-450); Red Cell Distribution Width 12.4 % (11.5-14.0); White Blood Count 9.7 x10^3/uL (4.0-10.5)
[2023-02-24 11:34] LABS: ALBUMIN 4.1 g/dL (3.5-5.0); ALKALINE PHOSPHATASE 68 U/L (38-126); ANION GAP 14.5 MEQ/L (5-15); BLOOD UREA NITROGEN 12 mg/dL (7-17); CHLORIDE 106 mmol/L (98-107); Calcium 8.9 mg/dL (8.4-10.2); Carbon Dioxide 25 mmol/L (22-30); Creatinine 1 0.57 mg/dL (0.52-1.04); EST GLOMERULAR FILTRATION RATE > 60.0 ML/MIN; Glucose 103 mg/dL (74-106); LIPASE 111 U/L (23-300); NT PRO BNPII 169 pg/mL (<300); Potassium 4.2 mmol/L (3.5-5.1); SGOT/AST 27 U/L (14-36); SGPT/ALT 20 U/L (0-35); SODIUM 141 mmol/L (137-145); Total Protein 7.2 g/dL (6.3-8.2)
[2023-02-24 13:38] VITALS: PULSE 71
--- NOTE | 2023-02-24 13:57 | XRAY ---
CLINICAL HISTORY:right lower quadrant pain COMPARISON:Prior CT images dated 03/27/2022. TECHNIQUES:Contiguous multi-slice CT examinations of the abdomen and pelvis were acquired in the axial plane with coronal and sagittal reconstructions after the administration of intravenous contrast; FINDINGS: Sigmoid colon diverticuli are noted with minimal focal sigmoid colon wall thickening and minimal stranding of the surrounding fat, suggestive of mild diverticulitis. The liver is normal in contour and shows mild fatty infiltration. No focal or diffuse lesion is seen. No evidence of intrahepatic biliary dilatation is seen. CBD and portal vein are normal. The gall bladder lumen shows 4 calculi, the largest one is measuring 13.7 x 13.2 mm in size. The pancreas is normal in shape and contour. Peripancreatic planes appear normal. No evidence of calcification or pancreatic duct dilatation is seen. The spleen is normal in contour and shows multiple tiny calcified lesions in the parenchyma. Adrenals are normal. Both kidneys are normal in size, shape, and attenuation. No left renal calculi. No hydronephrosis. A tiny calculus is seen in the upper calyx of the right kidney measuring 3 mm. Stomach and the rest of the bowel loops are normal. The appendix is normal. Aorta and IVC are normal. The urinary bladder is empty. The uterus is not visualized [Possibly post hysterectomy status]. The bone window setting shows thoracolumbar spondylosis with multilevel Schmorl's nodes, largest one is noted along the upper endplate of T12 vertebral body. IMPRESSION: 1-Colonic diverticulosis with sigmoid diverticulitis. 2-Mild fatty infiltration of the liver. 3-Cholelithiasis. 4-A tiny right renal calculus measuring 3 mm. 5-In comparison with prior CT abdomen and pelvis images dated 03/27/2022. Sigmoid colon diverticulitis is a new finding. The rest of the findings appear unchanged. (comparison is limited since the prior study was non-contrast study). Electronically Signed by: Antony Silva MD. (Study Signed: 02/24/2023 12:52:49 [employer])
[2023-02-24 14:11] VITALS: O2SAT 98
== END 2023-02-24 14:44 | disposition home or self-care (01) ==
LOC: ED 08:23
DX: K57.92 Diverticulitis of intestine, part unspecified, without perforation or abscess without bleeding (principal); R10.31 Right lower quadrant pain; K59.00 Constipation, unspecified; I10 Essential (primary) hypertension; Z79.899 Other long term (current) drug therapy; Z28.310 Unvaccinated for COVID-19; Z72.0 Tobacco use
CPT/HCPCS: 36410; 36415; 71045; 74177; 76942; 80053; 81001; 83690; 83880; 84484; 85025; 93005; 93041; 96360; 96374; 96375; 99284; J1200; J2270; J2405; A9270-GY

== ENCOUNTER 2023-03-09 06:04 | Day surgery (SDC) | payer OTHER ==
[2023-03-09] MEDS ORDERED: Lactated Ringers 1,000 ML IV SCH (06:30)
[2023-03-09 08:56] VITALS: BP 162/90; PULSE 81; O2SAT 97
--- NOTE | 2023-03-09 10:03 | OP ---
SURGERY DATE/TIME: 03/09/2023 0754 PREOPERATIVE DIAGNOSES: 1) Abdominal discomfort, odynophagia. 2) Screening colon exam with previous history of colon polyps. POSTOPERATIVE DIAGNOSES: 1) Moderate gastritis. 2) Small rectal polyp. 3) Mild diverticulosis in the sigmoid colon. PROCEDURES: 1) Esophagogastroduodenoscopy with cold forceps biopsy. 2) Colonoscopy with cold forceps biopsy. SURGEON: Dr. Monroy. ANESTHESIA: Medications were given by the anesthesia department. HISTORY: The patient is a 57-year-old white female presenting now for endoscopic evaluation due to problems with painful swallowing and abdominal pain. The patient also reports previous history of diverticulosis and colon polyps. The patient was felt the need to have endoscopic evaluation. She was appraised of the risks of the procedure including the risk of perforation, phlebitis, untoward reaction to medication, bleeding and missed lesions. The patient verbalized her understanding and desired to have the procedure performed. DESCRIPTION OF PROCEDURE: The patient was given the medications by the anesthesia department. She had continuous pulse oximetry, ECG monitoring and intermittent blood pressure monitoring during the examination. She was placed in the left lateral decubitus position. A bite block was placed and the flexible Olympus gastroscope was used to intubate the oropharynx. The scope was easily introduced in the esophagus which appeared to be normal throughout its length. The stomach was entered where normal gastric rugal folds were seen and these distended nicely with insufflation of air. The scope was passed along the greater curvature of the stomach to the pylorus this is then intubated. The duodenum inspected and found to normal. The scope is withdrawn towards the stomach. Again a retroflex view obtained of the lesser curvature, fundus and cardia regions of the stomach which appeared to be normal. The scope was then redirected towards the gastric antrum which had patchy erythema noted throughout with significant erosions or ulceration. We did cold forceps biopsies of the gastric antrum to rule out the presence of Helicobacter pylori-type organism. The scope was then removed from the patient. Next, a digital rectal examination was performed and revealed normal anal sphincter tone and no masses. The flexible Olympus pediatric colonoscope was used to intubate the rectum. A view of the colon was developed sequentially to the cecum. Upon insertion and withdrawal including retroflex view in the rectum was noted to be mild sigmoid diverticulosis and small rectal polyp which was removed using two passes of cold forceps biopsy forceps. This being accomplished, the scope is then removed from the patient who tolerated the procedure well and sent back to OP recovery in good condition. The prep was noted to be fair with areas of pasty stool noted particularly in the right colon.
[2023-03-09] MEDS ORDERED: Xylocaine-Mpf 2% 5 Ml Vial ONE (11:23)
[2023-03-09] MEDS ORDERED: Versed 2 MG/2 ML Injection ONE (11:23)
[2023-03-09] MEDS ORDERED: DIPRIVAN 200 MG/20 ML IV ONE ×2 (11:23)
== END 2023-03-09 09:05 | disposition home or self-care (01) ==
LOC: SDC 06:04
PROVIDERS: ATTEND Family Medicine
DX: Z12.11 Encounter for screening for malignant neoplasm of colon (principal); Z09 Encounter for follow-up examination after completed treatment for conditions other than malignant neoplasm; Z86.010 Personal history of colon polyps; R10.9 Unspecified abdominal pain; R13.10 Dysphagia, unspecified; K29.70 Gastritis, unspecified, without bleeding; K62.1 Rectal polyp; K57.30 Diverticulosis of large intestine without perforation or abscess without bleeding
CPT/HCPCS: J2250; J2704

== ENCOUNTER 2023-06-07 17:31 | Emergency (ER) | payer OTHER ==
--- NOTE | 2023-06-07 17:35 | ERPHSYRPT ---
- History of Present Illness Time Seen by Provider: 06/07/23 17:35 Source: patient, EMS, old records Exam Limitations: no limitations Physician History: This a 57-year-old thin white female patient of Dr. Motta who was brought to the emergency department by the ambulance service who provided independent medical history. I also reviewed old inpatient records from [facility]. The patient's main complaint is worsening cough and shortness of breath. Patient continues to be a daily smoker of cigarettes. The paramedics provided the patient with 125 mg of intramuscular Solu-Medrol and an Atrovent nebulizer. Patient has a history of uterine cancer as well as ovarian cancer. Patient also complains of chest pain anteriorly and back pain. Patient has a history of COPD, asthma, hypertension gastroesophageal reflux disease. Timing/Duration: yesterday, worse Activities at Onset: none Severity of Dyspnea-Max: moderate Severity of Dyspnea-Current: moderate Possible Cause: occasional episodes Modifying Factors: Improves With: coughing Associated Symptoms: cough, chest pain/discomfort Allergies/Adverse Reactions: aspirin Allergy (Verified 03/09/23 06:19) gabapentin Allergy (Verified 03/09/23 06:19) naproxen Allergy (Verified 03/09/23 06:19) Penicillins Allergy (Verified 03/09/23 06:19) Home Medications: Lisinopril 10 mg [Zestril 10 MG] 20 mg PO DAILY 07/31/22 [History] Omeprazole 20 mg PO BID 01/19/23 [History] Hx Tetanus, Diphtheria Vaccination/Date Given: No Hx Influenza Vaccination/Date Given: Yes Hx Pneumococcal Vaccination/Date Given: No Travel Risk - International Travel Have you traveled outside of the country in past 3 weeks: No - Coronavirus Screening Are you exhibiting any of the following symptoms?: Yes Symptoms: Cough: New Onset, Shortness of Breath Close contact with a COVID-19 positive Pt in past 14-21 Days: No - Vaccine Status Have you recieved a Covid-19 vaccination: No - Review of Systems Constitutional: No Symptoms Eyes: No Symptoms Ears, Nose, & Throat: No Symptoms Respiratory: Cough, Dyspnea Cardiac: Chest Pain Abdominal/Gastrointestinal: No Symptoms Genitourinary Symptoms: No Symptoms Musculoskeletal: Back Pain Skin: No Symptoms Neurological: No Symptoms Psychological: No Symptoms Endocrine: No Symptoms Hematologic/Lymphatic: No Symptoms Immunological/Allergic: No Symptoms All Other Systems: Reviewed and Negative - Past Medical History Pertinent Past Medical History: Yes ENT History: Other Cardiac History: Hypertension Respiratory History: Asthma, Bronchitis, COPD Musculoskeletal History: Degenerative Disk Disease, Other GI Medical History: Diverticulitis, GERD History: No Pertinent History Female Reproductive Disorders: Ovarian Cancer, Uterine Cancer Other Medical History: cancer tongue, breast and urterinE, hital hernia - Past Surgical History Past Surgical History: Yes Gastrointestinal: Hernia Repair Musculoskeletal: Orthopedic Surgery Female Surgical History: Hysterectomy Other Surgical History: acl repair knee, lumpectomy 3x, tongue tumor removed, cervical ablation, hernia repair x2 - Social History Smoking Status: Current every day smoker Exposure to second hand smoke: Yes Drug Use: none Patient Lives Alone: No - Nursing Vital Signs Nursing Vital Signs: Initial Vital Signs Temperature 99.4 F 06/07/23 17:37 Pulse Rate 102 H 06/07/23 17:37 Respiratory Rate 19 06/07/23 17:37 Blood Pressure 115/74 06/07/23 17:37 O2 Sat by Pulse Oximetry 96 06/07/23 17:37 Pain Scale Pain Intensity 0 - Physical Exam General Appearance: mild distress, alert, anxiety, thin Eye Exam: PERRL/EOMI, eyes nml inspection Ears, Nose, Throat Exam: hearing grossly normal, normal ENT inspection, normal pharynx Neck Exam: normal inspection, non-tender, supple, full range of motion Respiratory Exam: normal breath sounds, lungs clear, airway intact, No chest tenderness, No respiratory distress Cardiovascular/Chest Exam: tachycardia Abdominal/Gastrointestinal Exam: soft, normal bowel sounds, No tenderness Rectal Exam: not done Extremity Exam: non-tender, normal range of motion, normal inspection Neurologic Exam: alert, oriented x 3, cooperative, metal leaf layer II-XII nml as tested, sensation nml Skin Exam: normal color, warm, dry Lymphatic Exam: No adenopathy SpO2 Interpretation: normal O2 Delivery: Room Air - Course Nursing assessment & vital signs reviewed: Yes EKG Interpreted by Me: RATE (97), Sinus Rhythm, NORMAL AXIS, NORMAL INTERVALS, NORMAL QRS, NORMAL ST-T, Other (No evidence of acute ischemic changes on today's twelve-lead EKG.) Ordered Tests: Active Orders 24 hr Category Date Time Status Senior Reliability Engineer STAT Care 06/07/23 18:01 Active EKG-ER Only STAT Care 06/07/23 18:00 Active IV Insertion STAT Care 06/07/23 18:00 Active Pulse Oximetry (ED) STAT Care 06/07/23 18:00 Active CHEST 1 VIEW (PORTABLE) Stat Exams 06/07/23 18:01 Taken BLOOD CULTURE Stat Lab 06/07/23 18:01 Received CBC W DIFF Stat Lab 06/07/23 18:32 Completed CMP Stat Lab 06/07/23 18:32 Completed D-DIMER QUANTITATIVE Stat Lab 06/07/23 18:32 Completed NT PRO BNPII Stat Lab 06/07/23 18:32 Completed TROPONIN Q4H Lab 06/07/23 18:32 Completed TROPONIN Q4H Lab 06/07/23 22:15 Ordered TROPONIN Q4H Lab 06/08/23 02:15 Ordered Respiratory Therapy Assessment DAILY RT 06/07/23 18:13 Active Medication Summary Discontinued Medications Generic Name Dose Route Start Last Admin Trade Name Freq PRN Reason Stop Dose Admin Hydrocodone Bitart/Acetaminophen 10 ml 06/07/23 18:30 06/07/23 18:52 Hydrocodone/Acetaminophen 5 Ml Udcup PO 06/07/23 18:31 10 ml STAT STA Administration Hydrocodone Bitart/Acetaminophen Confirm 06/07/23 18:50 Hydrocodone/Acetaminophen 5 Ml Udcup Administered 06/07/23 18:51 Dose 10 ml .ROUTE .STK-MED ONE Albuterol/Ipratropium 3 ml 06/07/23 18:12 06/07/23 18:28 Ipratropium/Albuterol Sulfate 3 Ml Ampul.Neb IH 06/07/23 18:13 3 ml STAT ONE Administration Albuterol/Ipratropium Confirm 06/07/23 18:19 Ipratropium/Albuterol Sulfate 3 Ml Ampul.Neb Administered 06/07/23 18:20 Dose 3 ml IH .STK-MED ONE Lab/Rad Data: Laboratory Result Diagrams 06/07/23 18:32 06/07/23 18:32 Laboratory Results 06/07/23 06/07/23 06/07/23 Range/Units 18:32 18:32 18:32 WBC (4.0-10.5) x10^3/uL RBC (4.1-5.4) x10^6/uL Hgb (12.0-16.0) g/dL Hct (35-47) % MCV (78-100) fL MCH (26-32) pg MCHC (32-36) g/dL RDW (11.5-14.0) % Plt Count (150-450) x10^3/uL MPV (7.5-11.0) fL Gran % (36.0-66.0) % Immature Gran % (Auto) (0.00-0.4) % Nucleat RBC Rel Count (0.00-0.1) % Eos # (Auto) (0-0.5) x10^3/uL Immature Gran # (Auto) (0.00-0.03) x10^3u/L Absolute Lymphs (auto) (1.0-4.6) x10^3/uL Absolute Monos (auto) (0.0-1.3) x10^3/uL Absolute Nucleated RBC (0.00-0.01) x10^3u/L Lymphocytes % (24.0-44.0) % Monocytes % (0.0-12.0) % Eosinophils % (0.00-5.0) % Basophils % (0.0-0.4) % Absolute Granulocytes (1.4-6.9) x10^3/uL Basophils # (0-0.4) x10^3/uL D-Dimer 0.35 (0.0-0.50) mg/L Sodium 136 L (137-145) mmol/L Potassium 3.6 (3.5-5.1) mmol/L Chloride 102 (98-107) mmol/L Carbon Dioxide 23 (22-30) mmol/L Anion Gap 15.2 H (5-15) MEQ/L BUN 8 (7-17) mg/dL Creatinine 0.75 (0.52-1.04) mg/dL Estimated GFR > 60.0 ML/MIN Glucose 116 H (74-106) mg/dL Calcium 9.1 (8.4-10.2) mg/dL Total Bilirubin 1.60 H (0.2-1.3) mg/dL AST 27 (14-36) U/L ALT 16 (0-35) U/L Alkaline Phosphatase 97 (38-126) U/L Troponin I < 0.012 (0.000-0.034) ng/mL NT-Pro-B Natriuret Pep 302 (<300) pg/mL Serum Total Protein 7.6 (6.3-8.2) g/dL Albumin 4.5 (3.5-5.0) g/dL Slides for Path Review 06/07/23 Range/Units 18:32 WBC 15.1 H (4.0-10.5) x10^3/uL RBC 4.95 (4.1-5.4) x10^6/uL Hgb 15.3 (12.0-16.0) g/dL Hct 46.2 (35-47) % MCV 93.3 (78-100) fL MCH 30.9 (26-32) pg MCHC 33.1 (32-36) g/dL RDW 12.3 (11.5-14.0) % Plt Count 334 (150-450) x10^3/uL MPV 9.0 (7.5-11.0) fL Gran % 64.4 (36.0-66.0) % Immature Gran % (Auto) 0.5 H (0.00-0.4) % Nucleat RBC Rel Count 0.0 (0.00-0.1) % Eos # (Auto) 0.07 (0-0.5) x10^3/uL Immature Gran # (Auto) 0.07 H (0.00-0.03) x10^3u/L Absolute Lymphs (auto) 3.16 (1.0-4.6) x10^3/uL Absolute Monos (auto) 2.01 H (0.0-1.3) x10^3/uL Absolute Nucleated RBC 0.00 (0.00-0.01) x10^3u/L Lymphocytes % 20.9 L (24.0-44.0) % Monocytes % 13.3 H (0.0-12.0) % Eosinophils % 0.5 (0.00-5.0) % Basophils % 0.4 (0.0-0.4) % Absolute Granulocytes 9.73 H (1.4-6.9) x10^3/uL Basophils # 0.06 (0-0.4) x10^3/uL D-Dimer (0.0-0.50) mg/L Sodium (137-145) mmol/L Potassium (3.5-5.1) mmol/L Chloride (98-107) mmol/L Carbon Dioxide (22-30) mmol/L Anion Gap (5-15) MEQ/L BUN (7-17) mg/dL Creatinine (0.52-1.04) mg/dL Estimated GFR ML/MIN Glucose (74-106) mg/dL Calcium (8.4-10.2) mg/dL Total Bilirubin (0.2-1.3) mg/dL AST (14-36) U/L ALT (0-35) U/L Alkaline Phosphatase (38-126) U/L Troponin I (0.000-0.034) ng/mL NT-Pro-B Natriuret Pep (<300) pg/mL Serum Total Protein (6.3-8.2) g/dL Albumin (3.5-5.0) g/dL Slides for Path Review YES - Progress Progress: improved Air Movement: fair Progress Note: 06/07/23 19:47 This patient has a medical issue of moderate complexity. Level complexity in the work-up performed based on review of the patient's past medical history, review of the patient's medication list, review the patient's drug allergy list, history present illness and physical findings on examination. The work-up in this patient includes a twelve-lead EKG, troponin level, D-dimer level, CBC, C MP, chest x-ray. I reviewed the results of the above tests. I interpreted the chest x-ray. The patient has normal D-dimer and normal troponin level. The twelve-lead EKG shows no acute findings with chest x-ray might have bibasilar atelectasis versus early infiltrate. Given the fact the patient is having increasing shortness of breath and has a white count of 15,000. We will provide the patient with a gram of Rocephin intravenously here and remotely send prescriptions for albuterol inhaler, prednisone and a Z-John to her pharmacy. We will also write for hydrocodone acetaminophen elixir. 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 obtained from: Sales Agent Trading Stamps/EMT - Diagnostic Testing Diagnostic test were ordered, analyzed, and reviewed by me: Yes Radiological Interpretation: Interpreted by me - Risk of complications The pt has a mod risk of morbidity or mortality based on: Need for prescription drug management - Departure Departure Disposition: Home Clinical Impression: Upper respiratory infection, COPD exacerbation Condition: Stable Critical Care Time: No Referrals: VELMA MOTTA MD [Primary Care Provider] - Follow up/PCP as directed Instructions: Chronic Obstructive Pulmonary Disease Additional Instructions: Stop smoking. Drink plenty of fluids. Use your inhaler as prescribed. Take your steroids and antibiotics as prescribed. Take your other medication as prescribed. Call your primary care provider tomorrow morning, 06/08/2023, to make arrangements for further evaluation and management. Prescriptions: Hydrocodone/Acetaminophen [Hydrocodone-Acetamn 7.5-325/15] 10 ml PO Q8H PRN PRN #120 ml MDD 30 ml PRN Reason: Cough Prednisone 10 mg [Deltasone 10 mg] 10 mg PO TID #12 tablet Albuterol 8 gm Mdi Hfa [Ventolin Hfa MDI] 8 gm IH Q4H #1 unit Azithromycin 250 mg [Zithromax 250 MG TABLET] 250 mg PO ZPACK #6 tablet
[2023-06-07 17:53] VITALS: TEMP 99.4
[2023-06-07] MEDS ORDERED: DUONEB 0.5-3 MG/3 ml Neb IH ONE ×2 (18:12→18:19)
[2023-06-07] MEDS ORDERED: HYDROCODONE-ACETAMIN 2.5-108/5 ML SOLUTION PO STA (18:30)
[2023-06-07 18:35] LABS: Absolute Neutrophil Ct (ANC) 9.73 x10^3/uL (1.4-6.9); BASOPHIL % 0.4 % (0.0-0.4); Basophil (Absolute #) 0.06 x10^3/uL (0-0.4); Eosinophil % 0.5 % (0.00-5.0); Eosinophil (Absolute #) 0.07 x10^3/uL (0-0.5); Hematocrit 46.2 % (35-47); Hemoglobin 15.3 g/dL (12.0-16.0); IMMATURE GRAN # 0.07 x10^3u/L (0.00-0.03); IMMATURE GRAN % 0.5 % (0.00-0.4); Lymphocyte (Absolute #) 3.16 x10^3/uL (1.0-4.6); Lymphocytes % 20.9 % (24.0-44.0); Mean Cell Volume 93.3 fL (78-100); Mean Corpuscular Hemoglobin 30.9 pg (26-32); Mean Corpuscular Hgb Concent. 33.1 g/dL (32-36); Monocyte (Absolute #) 2.01 x10^3/uL (0.0-1.3); Monocytes % 13.3 % (0.0-12.0); Neutrophil % 64.4 % (36.0-66.0); Platelet Count 334 x10^3/uL (150-450); Red Blood Count 4.95 x10^6/uL (4.1-5.4); Red Cell Distribution Width 12.3 % (11.5-14.0); White Blood Count 15.1 x10^3/uL (4.0-10.5)
[2023-06-07] MEDS ORDERED: HYDROCODONE-ACETAMIN 2.5-108/5 ML SOLUTION ONE (18:50)
[2023-06-07 18:59] LABS: ALBUMIN 4.5 g/dL (3.5-5.0); ALKALINE PHOSPHATASE 97 U/L (38-126); ANION GAP 15.2 MEQ/L (5-15); BLOOD UREA NITROGEN 8 mg/dL (7-17); CHLORIDE 102 mmol/L (98-107); Calcium 9.1 mg/dL (8.4-10.2); Carbon Dioxide 23 mmol/L (22-30); Creatinine 1 0.75 mg/dL (0.52-1.04); EST GLOMERULAR FILTRATION RATE > 60.0 ML/MIN; Glucose 116 mg/dL (74-106); NT PRO BNPII 302 pg/mL (<300); Potassium 3.6 mmol/L (3.5-5.1); SGOT/AST 27 U/L (14-36); SGPT/ALT 16 U/L (0-35); SODIUM 136 mmol/L (137-145); Total Protein 7.6 g/dL (6.3-8.2)
[2023-06-07 19:20] LABS: Slide Review 1 YES
[2023-06-07] MEDS ORDERED: ROCEPHIN 1 Gm-D5w 50 ml Bag** 1 G/50 ML IVPB IV STA (20:04)
[2023-06-07] MEDS ORDERED: Zofran 4 MG/2 ML VIAL IV ONE (20:04)
[2023-06-07] MEDS ORDERED: MORPHINE SULFATE 2 MG INJ IV ONE (20:04)
[2023-06-07] MEDS ORDERED: Zofran 4 MG/2 ML VIAL ONE (20:07)
[2023-06-07] MEDS ORDERED: MORPHINE SULFATE 2 MG INJ ONE (20:08)
[2023-06-07] MEDS ORDERED: ROCEPHIN 1 Gm-D5w 50 ml Bag** 1 G/50 ML IVPB IV ONE (20:08)
--- NOTE | 2023-06-07 20:28 | XRAY ---
Indication: Cough and short of breath. Comparison: February 24, 2023 Portable chest again hyperinflated with new minimal bibasilar infiltrates versus atelectasis. Remaining heart and upper lungs unremarkable. Bony thorax intact again with osteopenia.
[2023-06-07] MEDS ORDERED: solu-MEDROL 125 MG, Sterile H2O 10 ml 2 ML IV ONE ×2 (20:29)
[2023-06-07] MEDS ORDERED: PROVENTIL 2.5 MG/3 ML NEB IH ONE ×2 (20:29→20:34)
[2023-06-07] MEDS ORDERED: Sterile H2O 10 ml IJ ONE (20:36)
[2023-06-07] MEDS ORDERED: solu-MEDROL ONE (20:36)
[2023-06-07 21:07] VITALS: BP 104/52; PULSE 46; RESP 18; O2SAT 94
== END 2023-06-07 21:10 | disposition home or self-care (01) ==
LOC: ED 17:31
DX: J06.9 Acute upper respiratory infection, unspecified (principal); J44.1 Chronic obstructive pulmonary disease with (acute) exacerbation; R05.9 Cough, unspecified; R06.02 Shortness of breath; R07.9 Chest pain, unspecified; M54.9 Dorsalgia, unspecified; I10 Essential (primary) hypertension; Z79.891 Long term (current) use of opiate analgesic; Z79.52 Long term (current) use of systemic steroids; Z79.899 Other long term (current) drug therapy; Z28.310 Unvaccinated for COVID-19; Z72.0 Tobacco use
CPT/HCPCS: 36000; 36415; 71045; 80053; 83880; 84484; 85025; 85379; 87040; 93005; 93041; 94640; 94760; 96365; 96372; 96374; 96375; 99284; J0696; J2270; J2405; J2930; J7609; A9270-GY

== ENCOUNTER 2023-08-26 20:19 | Emergency (ER) | payer OTHER ==
[2023-08-26] MEDS ORDERED: DUONEB 0.5-3 MG/3 ml Neb IH ONE ×2 (20:34→21:20)
[2023-08-26 20:37] VITALS: TEMP 97.3
[2023-08-26] MEDS ORDERED: Zofran 4 MG/2 ML VIAL IV ONE (21:40)
[2023-08-26] MEDS ORDERED: MORPHINE SULFATE 4 MG INJ IV ONE (21:40)
[2023-08-26] MEDS ORDERED: MORPHINE SULFATE 4 MG INJ ONE (21:43)
[2023-08-26] MEDS ORDERED: Zofran 4 MG/2 ML VIAL ONE (21:43)
[2023-08-26] MEDS ORDERED: Pepcid 20 MG VIAL IV ONE ×2 (22:09→22:31)
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
[2023-08-26 22:50] VITALS: BP 102/60; PULSE 77; RESP 16; O2SAT 98
--- NOTE | 2023-08-27 08:36 | XRAY ---
Indication: Short of breath following inhalation chemicals. Comparison: June 07, 2023 Portable chest inflated and clear. Heart not enlarged again with left hilar calcified nodes. Bony thorax intact again with osteopenia and mild degenerative changes. Impression: Nonacute chest with chronic features.
== END 2023-08-26 22:51 | disposition home or self-care (01) ==
LOC: ED 20:19
DX: T78.40XA Allergy, unspecified, initial encounter (principal); R06.02 Shortness of breath; R05.1 Acute cough; I10 Essential (primary) hypertension; J44.9 Chronic obstructive pulmonary disease, unspecified; Z79.52 Long term (current) use of systemic steroids; Z79.899 Other long term (current) drug therapy; Z28.310 Unvaccinated for COVID-19; Z72.0 Tobacco use
CPT/HCPCS: 71045; 93005; 94640; 96374; 96375; 99284; J2270; J2405; A9270-GY

== ENCOUNTER 2023-10-13 20:09 | Emergency (ER) | payer OTHER ==
[2023-10-13 20:12] VITALS: TEMP 100.7
[2023-10-13] MEDS ORDERED: Sodium Chloride 0.9% 1000 ML 1,000 ML IV SCH (20:45)
[2023-10-13] MEDS ORDERED: TYLENOL 325 MG PO STA (20:45)
[2023-10-13 20:53] LABS: Absolute Neutrophil Ct (ANC) 5.22 x10^3/uL (1.4-6.9); BASOPHIL % 0.5 % (0.0-0.4); Basophil (Absolute #) 0.04 x10^3/uL (0-0.4); Eosinophil (Absolute #) 0 x10^3/uL (0-0.5); Hematocrit 43.2 % (35-47); IMMATURE GRAN # 0.04 x10^3u/L (0.00-0.03); IMMATURE GRAN % 0.5 % (0.00-0.4); Lymphocyte (Absolute #) 0.99 x10^3/uL (1.0-4.6); Lymphocytes % 13.5 % (24.0-44.0); Mean Cell Volume 93.1 fL (78-100); Mean Corpuscular Hemoglobin 30.2 pg (26-32); Mean Corpuscular Hgb Concent. 32.4 g/dL (32-36); Mean Platelet Volume 8.7 fL (7.5-11.0); Monocyte (Absolute #) 1.04 x10^3/uL (0.0-1.3); Monocytes % 14.2 % (0.0-12.0); Neutrophil % 71.3 % (36.0-66.0); Platelet Count 269 x10^3/uL (150-450); Red Blood Count 4.64 x10^6/uL (4.1-5.4); Red Cell Distribution Width 12.8 % (11.5-14.0); White Blood Count 7.3 x10^3/uL (4.0-10.5)
[2023-10-13] MEDS ORDERED: DUONEB 0.5-3 MG/3 ml Neb IH ONE ×2 (20:54→21:02)
[2023-10-13] MEDS ORDERED: solu-MEDROL 125 MG, Sterile H2O 10 ml 2 ML IV ONE ×2 (20:54)
[2023-10-13] MEDS ORDERED: Sterile H2O 10 ml IJ ONE (20:54)
--- NOTE | 2023-10-13 20:54 | ERPHSYRPT ---
- History of Present Illness Time Seen by Provider: 10/13/23 20:20 Source: patient Exam Limitations: no limitations Patient Subjective Stated Complaint: productive cough, fever, body aches, headache since yesterday Triage Nursing Assessment: pt ambulatory to bed by self with steady gait, pt alert and oriented x3, pt c/o productive cough, fever of 101 at home, body aches, headache since yesterday, pt states "I think I have pneumonia." pt states she is coughing up white sputum, pt is a smoker for many years, hx of COPD and asthma Physician History: Patient is a 57-year-old female history of COPD asthma current smoker presents to our ED with a 1 day history of fever cough body aches and a headache. Patient also complains of chest pain. Symptoms have been constant throughout the day. No trauma. No vomiting no diaphoresis. Symptoms are moderate in intensity. No specific worsening or improving factors. Patient voices no other complaints or concerns at this time. Patient observed to be tachycardic and hypoxic on the quality assurance monitor. Portions of this note were created with voice recognition technology. There may be grammatical, spelling, punctuation or sound alike errors Timing/Duration: yesterday Activities at Onset: none Severity of Dyspnea-Max: moderate Severity of Dyspnea-Current: mild Possible Cause: unknown cause Modifying Factors: Improves With: nothing Associated Symptoms: cough Allergies/Adverse Reactions: aspirin Allergy (Verified 08/26/23 20:24) gabapentin Allergy (Verified 08/26/23 20:24) naproxen Allergy (Verified 08/26/23 20:24) Penicillins Allergy (Verified 08/26/23 20:24) Home Medications: Lisinopril 10 mg [Zestril 10 MG] 20 mg PO DAILY 07/31/22 [History] Omeprazole 20 mg PO BID 01/19/23 [History] Hx Tetanus, Diphtheria Vaccination/Date Given: Yes Hx Influenza Vaccination/Date Given: No Hx Pneumococcal Vaccination/Date Given: No Travel Risk - International Travel Have you traveled outside of the country in past 3 weeks: No - Coronavirus Screening Are you exhibiting any of the following symptoms?: Yes Symptoms: Fever, Cough: New Onset, Shortness of Breath Close contact with a COVID-19 positive Pt in past 14-21 Days: No - Vaccine Status Have you recieved a Covid-19 vaccination: No - Review of Systems Constitutional: No Symptoms, No Fever, No Chills Eyes: No Symptoms Ears, Nose, & Throat: No Symptoms Respiratory: No Symptoms, No Cough, No Dyspnea Cardiac: No Symptoms, No Chest Pain, No Edema, No Syncope Abdominal/Gastrointestinal: No Symptoms, No Abdominal Pain, No Nausea, No Vomi ting, No Diarrhea Genitourinary Symptoms: No Symptoms, No Dysuria Musculoskeletal: No Symptoms, No Back Pain, No Neck Pain Skin: No Symptoms, No Rash Neurological: No Symptoms, No Dizziness, No Focal Weakness, No Sensory Changes Psychological: No Symptoms Endocrine: No Symptoms Hematologic/Lymphatic: No Symptoms Immunological/Allergic: No Symptoms All Other Systems: Reviewed and Negative - Past Medical History Pertinent Past Medical History: Yes Neurological History: Migraines ENT History: Other Cardiac History: Hypertension Respiratory History: Asthma, Bronchitis, COPD Musculoskeletal History: Degenerative Disk Disease, Other GI Medical History: Diverticulitis, GERD, Hernia History: No Pertinent History Female Reproductive Disorders: Ovarian Cancer, Uterine Cancer Other Medical History: cancer tongue, breast and urterinE, hiatal hernia - Past Surgical History Past Surgical History: Yes Gastrointestinal: Hernia Repair Musculoskeletal: Orthopedic Surgery Female Surgical History: Hysterectomy Other Surgical History: acl repair knee, lumpectomy 3x, tongue tumor removed, cervical ablation, hernia repair x2 - Social History Smoking Status: Current every day smoker How long have you smoked: 0.5 Exposure to second hand smoke: Yes Drug Use: none Patient Lives Alone: No - Nursing Vital Signs Nursing Vital Signs: Initial Vital Signs Blood Pressure 138/80 10/13/23 20:10 Pain Scale Pain Intensity 0 - Physical Exam General Appearance: no apparent distress, alert Eye Exam: PERRL/EOMI Ears, Nose, Throat Exam: hearing grossly normal, normal ENT inspection, normal pharynx Neck Exam: normal inspection, supple Respiratory Exam: diminished breath sounds, No respiratory distress Cardiovascular/Chest Exam: normal heart sounds, regular rate/rhythm Abdominal/Gastrointestinal Exam: soft, No tenderness, No distention, No mass Extremity Exam: non-tender, normal range of motion, normal inspection, no calf tenderness, no pedal edema Peripheral Pulses Exam: dorsalis-pedis (R): 2+, dorsalis-pedis (L): 2+ Neurologic Exam: alert, oriented x 3, cooperative, 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 Stable 3.2 x 3.2 cm right suprahilar soft tissue mass again positive for malignancy. No new acute abnormalities) Ordered Tests: Active Orders 24 hr Category Date Time Status Abrasive Mixer STAT Care 10/13/23 20:46 Active EKG-ER Only STAT Care 10/13/23 20:53 Active IV Insertion STAT Care 10/13/23 20:45 Active Pulse Oximetry (ED) STAT Care 10/13/23 20:45 Active CHEST WITH CONTRAST [CT] Stat Exams 10/13/23 20:49 Taken BLOOD CULTURE Stat Lab 10/13/23 20:45 Ordered CBC W DIFF Stat Lab 10/13/23 20:20 Completed CMP Stat Lab 10/13/23 20:20 Completed Lactic Acid Stat Lab 10/13/23 20:45 Completed TROPONIN Q4H Lab 10/13/23 20:20 Completed TROPONIN Q4H Lab 10/14/23 05:00 Ordered TROPONIN Stat Lab 10/13/23 23:10 Completed UA W/RFX UR CULTURE Stat Lab 10/13/23 20:45 Ordered Respiratory Therapy Assessment DAILY RT 10/13/23 21:03 Active Medication Summary Generic Name Dose Route Start Last Admin Trade Name Freq PRN Reason Stop Dose Admin Sodium Chloride 1,000 mls @ 100 mls/hr 10/13/23 20:45 10/13/23 20:59 Sodium Chloride 0.9% 1000 Ml IV 11/12/23 20:44 100 mls/hr .Q10H MELISSA Administration Discontinued Medications Generic Name Dose Route Start Last Admin Trade Name Freq PRN Reason Stop Dose Admin Acetaminophen 975 mg 10/13/23 20:45 10/13/23 20:59 Acetaminophen 325 Mg Tablet PO 10/13/23 20:46 975 mg STAT STA Administration Acetaminophen Confirm 10/13/23 20:55 Acetaminophen 325 Mg Tablet Administered 10/13/23 20:56 Dose 975 mg .ROUTE .STK-MED ONE Albuterol/Ipratropium 3 ml 10/13/23 20:54 10/13/23 21:06 Ipratropium/Albuterol Sulfate 3 Ml Ampul.Neb IH 10/13/23 20:55 3 ml STAT ONE Administration Albuterol/Ipratropium Confirm 10/13/23 21:02 Ipratropium/Albuterol Sulfate 3 Ml Ampul.Neb Administered 10/13/23 21:03 Dose 3 ml IH .STK-MED ONE Methylprednisolone Sodium 0 mg 10/13/23 20:54 10/13/23 21:00 Succinate 125 mg/ Sterile IV 10/13/23 20:55 125 mg Water 2 ml STAT ONE Administration Droperidol 1.25 mg 10/13/23 21:26 10/13/23 21:28 Droperidol 5 Mg/2 Ml Vial IV 10/13/23 21:27 1.25 mg STAT ONE Administration Droperidol Confirm 10/13/23 21:28 Droperidol 5 Mg/2 Ml Vial Administered 10/13/23 21:29 Dose 5 mg .ROUTE .STK-MED ONE Methylprednisolone Sodium Succinate Confirm 10/13/23 20:55 Methylprednis Sod Succ 125 Mg/2 Ml Vial Administered 10/13/23 20:56 Dose 125 mg .ROUTE .STK-MED ONE Morphine Sulfate 4 mg 10/13/23 22:47 10/13/23 23:02 Morphine Sulfate 4 Mg/Ml Injection IV 10/13/23 22:48 4 mg STAT ONE Administration Morphine Sulfate Confirm 10/13/23 22:51 Morphine Sulfate 4 Mg/Ml Injection Administered 10/13/23 22:52 Dose 4 mg .ROUTE .STK-MED ONE Sterile Water Confirm 10/13/23 20:54 Water For Injection,Sterile 10 Ml Vial Administered 10/13/23 20:55 Dose 10 ml IJ .STK-MED ONE Lab/Rad Data: Laboratory Result Diagrams 10/13/23 20:20 10/13/23 20:20 Laboratory Results 10/13/23 10/13/23 10/13/23 Range/Units 23:10 23:10 20:45 WBC (4.0-10.5) x10^3/uL RBC (4.1-5.4) x10^6/uL Hgb (12.0-16.0) g/dL Hct (35-47) % MCV (78-100) fL MCH (26-32) pg MCHC (32-36) g/dL RDW (11.5-14.0) % Plt Count (150-450) x10^3/uL MPV (7.5-11.0) fL Gran % (36.0-66.0) % Immature Gran % (Auto) (0.00-0.4) % Nucleat RBC Rel Count (0.00-0.1) % Eos # (Auto) (0-0.5) x10^3/uL Immature Gran # (Auto) (0.00-0.03) x10^3u/L Absolute Lymphs (auto) (1.0-4.6) x10^3/uL Absolute Monos (auto) (0.0-1.3) x10^3/uL Absolute Nucleated RBC (0.00-0.01) x10^3u/L Lymphocytes % (24.0-44.0) % Monocytes % (0.0-12.0) % Eosinophils % (0.00-5.0) % Basophils % (0.0-0.4) % Absolute Granulocytes (1.4-6.9) x10^3/uL Basophils # (0-0.4) x10^3/uL Sodium (137-145) mmol/L Potassium (3.5-5.1) mmol/L Chloride (98-107) mmol/L Carbon Dioxide (22-30) mmol/L Anion Gap (5-15) MEQ/L BUN (7-17) mg/dL Creatinine (0.52-1.04) mg/dL Estimated GFR ML/MIN Glucose (74-106) mg/dL Lactic Acid 1.3 (0.4-2.0) Calcium (8.4-10.2) mg/dL Total Bilirubin (0.2-1.3) mg/dL AST (14-36) U/L ALT (0-35) U/L Alkaline Phosphatase (38-126) U/L Troponin I < 0.012 (0.000-0.034) ng/mL Serum Total Protein (6.3-8.2) g/dL Albumin (3.5-5.0) g/dL Influenza Type A Ag POSITIVE (NEGATIVE) Influenza Type B Ag NEGATIVE (NEGATIVE) RSV (PCR) NEGATIVE (NEGATIVE) SARS-CoV-2 (PCR) NEGATIVE (NEGATIVE) 10/13/23 10/13/23 10/13/23 Range/Units 20:20 20:20 20:20 WBC 7.3 (4.0-10.5) x10^3/uL RBC 4.64 (4.1-5.4) x10^6/uL Hgb 14.0 (12.0-16.0) g/dL Hct 43.2 (35-47) % MCV 93.1 (78-100) fL MCH 30.2 (26-32) pg MCHC 32.4 (32-36) g/dL RDW 12.8 (11.5-14.0) % Plt Count 269 (150-450) x10^3/uL MPV 8.7 (7.5-11.0) fL Gran % 71.3 H (36.0-66.0) % Immature Gran % (Auto) 0.5 H (0.00-0.4) % Nucleat RBC Rel Count 0.0 (0.00-0.1) % Eos # (Auto) 0 (0-0.5) x10^3/uL Immature Gran # (Auto) 0.04 H (0.00-0.03) x10^3u/L Absolute Lymphs (auto) 0.99 L (1.0-4.6) x10^3/uL Absolute Monos (auto) 1.04 (0.0-1.3) x10^3/uL Absolute Nucleated RBC 0.00 (0.00-0.01) x10^3u/L Lymphocytes % 13.5 L (24.0-44.0) % Monocytes % 14.2 H (0.0-12.0) % Eosinophils % 0.0 (0.00-5.0) % Basophils % 0.5 (0.0-0.4) % Absolute Granulocytes 5.22 (1.4-6.9) x10^3/uL Basophils # 0.04 (0-0.4) x10^3/uL Sodium 133 L (137-145) mmol/L Potassium 3.8 (3.5-5.1) mmol/L Chloride 102 (98-107) mmol/L Carbon Dioxide 22 (22-30) mmol/L Anion Gap 13.4 (5-15) MEQ/L BUN 10 (7-17) mg/dL Creatinine 0.62 (0.52-1.04) mg/dL Estimated GFR 102.5 ML/MIN Glucose 102 (74-106) mg/dL Lactic Acid (0.4-2.0) Calcium 9.1 (8.4-10.2) mg/dL Total Bilirubin 1.10 (0.2-1.3) mg/dL AST 22 (14-36) U/L ALT 15 (0-35) U/L Alkaline Phosphatase 73 (38-126) U/L Troponin I < 0.012 (0.000-0.034) ng/mL Serum Total Protein 7.1 (6.3-8.2) g/dL Albumin 4.4 (3.5-5.0) g/dL Influenza Type A Ag (NEGATIVE) Influenza Type B Ag (NEGATIVE) RSV (PCR) (NEGATIVE) SARS-CoV-2 (PCR) (NEGATIVE) - Progress Progress: improved Air Movement: good Progress Note: Case discussed with Dr. Maria, ER physician at [facility]. Dr. Alaniz accepts transfer to [facility] at 1:32 AM. Plan of care discussed with patient. She agrees to transfer to [facility] for further evaluation and treatment. Portions of this note were created with voice recognition technology. There may be grammatical, spelling, punctuation or sound alike errors Patient is a 57-year-old female presents to our ED for evaluation of chest pain and shortness of breath. Patient was hypoxic and tachycardic in our ED. Patient is a smoker history of cancer. CTA chest reveals a 3.2 x 3.2 cm suprahilar mass that is believed to be malignant. Patient experiencing ongoing chest pain. Troponin negative x 2. EKG shows normal sinus rhythm no ischemic changes. At this point there is concern that patient's chest pain may be emanating from mass effect of this malignant tumor observed on today's CT chest. Patient was also diagnosed with influenza A. Patient currently on 4 L nasal cannula oxygen to maintain a saturation of 96%. Patient is likely also experiencing a COPD exacerbation. Patient received a DuoNeb treatment as well as Solu-Medrol. Blood cultures obtained. Doxycycline ordered. Patient is allergic to penicillin. Patient states her allergy is respiratory distress. Portions of this note were created with voice recognition technology. There may be grammatical, spelling, punctuation or sound alike errors 10/14/23 01:32 Complexity of problems addressed is high severe exacerbation threat to bodily function as patient was hypoxic and tachycardic No critical care time Complaints of data reviewed and analyzed is extensive. Test ordered test reviewed. Results analyzed and correlated clinically. Management discussed with ER physician at [facility] Dr. Maria who accepts transfer at 1:32 AM Risk of complication and or risk of morbidity/mortality of patient management is high. Patient requires hospitalization/higher level of care. Due to patient's chest mass patient will need evaluation by oncology. Vital stable. Time spent to transfer patient is approximately 20 minutes. Plan of care established for shared decision making. No social determinants of health present impede follow-up. Portions of this note were created with voice recognition technology. There may be grammatical, spelling, punctuation or sound alike errors Blood Culture(s) Obtained: Yes Antibiotics given: No Counseled pt/family regarding: lab results, diagnosis, need for follow-up, rad results - Departure Departure Disposition: Transfer Clinical Impression: Shortness of breath, Chest pain, Influenza A, Chest mass, Fever, Malignancy, Tachycardia, Hypoxia, Viral syndrome, COPD exacerbation Condition: Stable Critical Care Time: No Referrals: DOCTOR,NO FAMILY [Primary Care Provider] - Follow up/PCP as directed Natalee Denise RN [Registered Nurse] - Follow up/PCP as directed Instructions: Chronic Obstructive Pulmonary Disease
[2023-10-13] MEDS ORDERED: Sodium Chloride 0.9% 1000 ML 1,000 ML ONE (20:55)
[2023-10-13] MEDS ORDERED: solu-MEDROL ONE (20:55)
[2023-10-13] MEDS ORDERED: TYLENOL 325 MG ONE (20:55)
[2023-10-13 20:59] LABS: ALBUMIN 4.4 g/dL (3.5-5.0); ANION GAP 13.4 MEQ/L (5-15); BILIRUBIN,TOTAL 1.1 mg/dL (0.2-1.3); Calcium 9.1 mg/dL (8.4-10.2); Creatinine 1 0.62 mg/dL (0.52-1.04); EST GLOMERULAR FILTRATION RATE 102.5 ML/MIN; Potassium 3.8 mmol/L (3.5-5.1); Total Protein 7.1 g/dL (6.3-8.2)
[2023-10-13] MEDS: MORPHINE SULFATE 4 MG INJ IV ONE ×2 (22:51→23:02)
[2023-10-13] MEDS ORDERED: MORPHINE SULFATE 4 MG INJ ONE (22:51)
[2023-10-13 23:51] LABS: INFLUENZA B NEGATIVE (NEGATIVE); RESPIRATORY SYNCTIAL VIRUS NEGATIVE (NEGATIVE); SARS-CoV-2 Xpert Express NEGATIVE (NEGATIVE)
[2023-10-13 23:52] LABS: INFLUENZA A POSITIVE (NEGATIVE)
[2023-10-14] MEDS ORDERED: VIBRAMYCIN 100 MG IV ONE (01:49)
[2023-10-14] MEDS ORDERED: D5w 100ML Mini Bag 100 ML 100 ML IV ONE (01:50)
[2023-10-14 02:09] VITALS: RESP 22
[2023-10-14 03:14] VITALS: BP 108/43; PULSE 88; O2SAT 97
--- NOTE | 2023-10-14 08:57 | XRAY ---
Indication: Short of breath. Pulmonary embolus. Multiple contiguous axial images obtained through the chest using 100 cc Isovue 370 contrast and PE protocol. Comparison: CT low-dose lung screening exam May 24, 2023. Adequate opacification of the pulmonary arteries. However diffuse respiration artifact limits evaluation of the more distal lobar and segmental branches. No obvious pulmonary embolus. Heart not enlarged. Aorta again minimally atherosclerotic without aneurysm/dissection. Stable mediastinal and left hilar calcified nodes. Grossly stable right suprahilar soft tissue mass again measuring 3.2 x 3.2 x 3.1 cm concerning for malignancy. Lungs again demonstrates mild diffuse pulmonary emphysema and a few tiny left perihilar calcified granulomas. Mild bilateral dependent atelectasis. No new pulmonary mass/nodule, infiltrate, or effusion. Bony thorax intact again with minimal degenerative changes throughout the spine and superior T12 Schmorl node. Limited upper abdomen again demonstrates tiny splenic calcified granulomas. Impression: 1. Respiration artifact limits pulmonary embolus evaluation. No obvious pulmonary embolus. 2. Grossly stable right suprahilar soft tissue mass. Again rule out primary versus metastatic malignancy. 3. Again chronic findings including pulmonary emphysema, arteriosclerotic disease, chronic bony findings, and old granulomatous disease.
[2023-10-14] MEDS ORDERED: VIBRAMYCIN 100 MG*** 100 MG in Dextrose 5%/Water IV Soln. 100ML PLUS BAG 100 ML IV SCH (10:00)
== END 2023-10-14 03:12 | disposition short-term general hospital (02) ==
LOC: ED 20:09
DX: J10.1 Influenza due to other identified influenza virus with other respiratory manifestations (principal); C34.90 Malignant neoplasm of unspecified part of unspecified bronchus or lung; R06.02 Shortness of breath; R07.9 Chest pain, unspecified; R50.9 Fever, unspecified; R00.0 Tachycardia, unspecified; R09.02 Hypoxemia; J44.1 Chronic obstructive pulmonary disease with (acute) exacerbation; R05.1 Acute cough; M79.10 Myalgia, unspecified site; R51.9 Headache, unspecified; I10 Essential (primary) hypertension; Z28.310 Unvaccinated for COVID-19; Z72.0 Tobacco use
CPT/HCPCS: 0241U; 36000; 36415; 71260; 80053; 83605; 84484; 85025; 87040; 93005; 93041; 94640; 94760; 96374; 96375; 99285; J2270; J2930; A9270-GY

== ENCOUNTER 2023-12-05 12:21 | Emergency (ER) | payer OTHER ==
[2023-12-05] MEDS ORDERED: DUONEB 0.5-3 MG/3 ml Neb IH ONE (12:26)
[2023-12-05 12:35] VITALS: TEMP 97.3
[2023-12-05] MEDS: DUONEB 0.5-3 MG/3 ml Neb IH ONE (12:40)
[2023-12-05] MEDS: PULMICORT 0.5 MG/2 ML RESPULES IH STA (12:45)
[2023-12-05] MEDS ORDERED: Robitussin AC Syrup Unit Dose Cup ONE (13:05)
[2023-12-05] MEDS: Robitussin AC Syrup Unit Dose Cup PO STA (13:06)
--- NOTE | 2023-12-05 13:09 | ERPHSYRPT ---
- History of Present Illness Time Seen by Provider: 12/05/23 13:05 Source: patient, EMS Exam Limitations: no limitations Patient Subjective Stated Complaint: C/O SOB for 2-3 days Triage Nursing Assessment: Patient arrived by ambulance with a duoneb being administered sating 98% on the duoneb. She is alert and oriented. SOB. Non- productive forceful cough. Skin tone normal. TINAJERO WNL. Audible wheezes present, RT called to room. Physician History: Patient is 58-year-old female with significant past medical history of COPD hypertension chronic allergies started having shortness of breath for last 2 days which got worse today. She started having a severe wheezing and could not breathe so she called ambulance and patient was brought into the emergency room via ambulance. Patient is also complaining of fever chills headache and backache. Patient denies any other symptoms. Patient does not have any sick contact at home. Timing/Duration: day(s) (2-3 days) Activities at Onset: none Severity of Dyspnea-Max: moderate Severity of Dyspnea-Current: moderate Possible Cause: frequent episodes Modifying Factors: Improves With: nothing Associated Symptoms: anxiety, cough, fever, wheezing, weakness, painful breathing, productive cough, No chest pain/discomfort Allergies/Adverse Reactions: aspirin Allergy (Verified 12/05/23 12:24) gabapentin Allergy (Verified 12/05/23 12:24) naproxen Allergy (Verified 12/05/23 12:24) Penicillins Allergy (Verified 12/05/23 12:24) Home Medications: Albuterol Sulfate [Albuterol Sulfate Hfa] 2 puff PO Q4-6HPRN PRN 12/05/23 [History] Fluticasone Propion/Salmeterol [Airduo Digihaler 55-14 Mcg] 1 puff PO DAILY 12/05/23 [History] Fluticasone/Salmeterol [Advair 100-50 Diskus] 1 puff PO BID 12/05/23 [History] Levocetirizine Dihydrochloride 1 tab PO DAILY 12/05/23 [History] Lisinopril 20 mg [Zestril 20 MG] 1 tab PO DAILY 12/05/23 [History] Montelukast Sodium 10 mg [Singulair 10 MG] 1 tab PO DAILY 12/05/23 [History] Omeprazole 1 cap PO DAILY 12/05/23 [History] Topiramate 25 mg [Topamax 25 MG] 1 cap PO DAILY 12/05/23 [History] Hx Tetanus, Diphtheria Vaccination/Date Given: Yes Hx Influenza Vaccination/Date Given: No Hx Pneumococcal Vaccination/Date Given: No Immunizations Up to Date: Yes Travel Risk - International Travel Have you traveled outside of the country in past 3 weeks: No - Coronavirus Screening Are you exhibiting any of the following symptoms?: Yes Symptoms: Fever, Cough: New Onset, Shortness of Breath Close contact with a COVID-19 positive Pt in past 14-21 Days: No - Vaccine Status Have you recieved a Covid-19 vaccination: No - Review of Systems Constitutional: Fever, Chills Eyes: No Symptoms Ears, Nose, & Throat: No Symptoms Respiratory: Cough, Dyspnea, Dyspnea on Exertion (SHEIKH), Wheezing Cardiac: No Chest Pain, No Edema, No Syncope Abdominal/Gastrointestinal: No Abdominal Pain, No Nausea, No Vomiting, No Diarrhea Genitourinary Symptoms: No Dysuria Musculoskeletal: No Back Pain, No Neck Pain Skin: No Rash Neurological: No Dizziness, No Focal Weakness, No Sensory Changes Psychological: No Symptoms Endocrine: No Symptoms All Other Systems: Reviewed and Negative - Past Medical History Pertinent Past Medical History: Yes Neurological History: Migraines ENT History: Other Cardiac History: High Cholesterol, Hypertension Respiratory History: Asthma, Bronchitis, COPD Musculoskeletal History: Degenerative Disk Disease, Other GI Medical History: Diverticulitis, GERD, Hernia History: No Pertinent History Female Reproductive Disorders: Breast Cancer, Ovarian Cancer, Uterine Cancer Other Medical History: hiatal hernia, states "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 cancers: tongue, right breast, uterine - Past Surgical History Past Surgical History: Yes Gastrointestinal: Hernia Repair Musculoskeletal: Orthopedic Surgery Female Surgical History: Hysterectomy, Lumpectomy Other Surgical History: acl repair knee, tongue tumor removed, cervical ablation, hernia repair x2 - Social History Smoking Status: Current every day smoker How long have you smoked: 50 years Exposure to second hand smoke: Yes Drug Use: none Patient Lives Alone: No (son & [id number]) - Nursing Vital Signs Nursing Vital Signs: Initial Vital Signs Temperature 97.3 F 12/05/23 12:24 Pulse Rate 95 H 02/11/24 12:24 Respiratory Rate 30 H 12/05/23 12:24 Blood Pressure 104/73 12/05/23 12:24 O2 Sat by Pulse Oximetry 98 12/05/23 12:24 Pain Scale Pain Intensity 0 - Physical Exam General Appearance: no apparent distress, alert Eye Exam: PERRL/EOMI Neck Exam: normal inspection, supple Respiratory Exam: diminished breath sounds, crackles/rales, rhonchi, wheezing Cardiovascular/Chest Exam: normal heart sounds, regular rate/rhythm Abdominal/Gastrointestinal Exam: soft, No tenderness, No distention, No mass Extremity Exam: non-tender, normal range of motion, normal inspection, no calf tenderness, no pedal edema Neurologic Exam: alert, oriented x 3, cooperative, entry writer II-XII nml as tested, sensation nml, No motor deficits Skin Exam: normal color, warm, No dry SpO2 Interpretation: normal SpO2: 98 O2 Delivery: Room Air - Course Nursing assessment & vital signs reviewed: Yes EKG Interpreted by Me: Sinus Rhythm - Radiology Exams Chest X-ray Interpretation: Reviewed by me (bibasilar infiltrates) Ordered Tests: Active Orders 24 hr Category Date Time Status 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 STAT Care 12/05/23 12:38 Completed EKG-ER Only STAT Care 12/05/23 12:24 Completed IV Insertion STAT Care 12/05/23 12:24 Completed Pulse Oximetry (ED) STAT Care 12/05/23 12:38 Completed CHEST 2 VIEWS (PA AND LAT) Stat Exams 12/05/23 12:25 Taken ABG [ARTERIAL BLOOD GASES] Stat Lab 12/05/23 13:10 Completed BLOOD CULTURE Stat Lab 12/05/23 13:33 Received CBC W DIFF Stat Lab 12/05/23 13:10 Completed CMP Stat Lab 12/05/23 13:10 Completed CULTURE,URINE Stat Lab 12/05/23 13:14 Received D-DIMER QUANTITATIVE Stat Lab 12/05/23 13:10 Completed MAGNESIUM Stat Lab 12/05/23 13:10 Completed NT PRO BNPII Stat Lab 12/05/23 13:10 Completed TROPONIN Q4H Lab 12/05/23 13:10 Completed TROPONIN Q4H Lab 12/05/23 16:30 Ordered TROPONIN Q4H Lab 12/05/23 20:30 Ordered UA W/RFX UR CULTURE Stat Lab 12/05/23 13:14 Completed Respiratory Therapy Assessment DAILY RT 12/05/23 12:48 Active Medication Summary Generic Name Dose Route Start Last Admin Trade Name Shashi PRN Reason Stop Dose Admin Sodium Chloride 1,000 mls @ 100 mls/hr 12/05/23 12:30 12/05/23 15:14 Sodium Chloride 0.9% 1000 Ml IV 01/04/24 12:29 Infused .Q10H MELISSA Infusion Discontinued Medications Generic Name Dose Route Start Last Admin Trade Name Shashi PRN Reason Stop Dose Admin Albuterol/Ipratropium 3 ml 12/05/23 12:24 12/05/23 12:40 Ipratropium/Albuterol Sulfate 3 Ml Ampul.Neb IH 12/05/23 12:25 3 ml STAT ONE Administration Albuterol/Ipratropium Confirm 12/05/23 12:26 Ipratropium/Albuterol Sulfate 3 Ml Ampul.Neb Administered 12/05/23 12:27 Dose 3 ml IH .STK-MED ONE Budesonide 0.5 mg 12/05/23 12:24 12/05/23 12:45 Budesonide 0.5 Mg/2 Ml Ampul.Neb. IH 12/05/23 12:25 0.5 mg ONCE STA Administration Guaifenesin/Codeine Phosphate 10 ml 12/05/23 13:04 12/05/23 13:06 Guaifenesin/Codeine Phosphate 5 Ml Udcup PO 12/05/23 13:05 10 ml QIDP STA Administration Guaifenesin/Codeine Phosphate Confirm 12/05/23 13:05 Guaifenesin/Codeine Phosphate 5 Ml Udcup Administered 12/05/23 13:06 Dose 10 ml .ROUTE .STK-MED ONE Levofloxacin/Dextrose 500 mg in 100 mls @ 100 mls/hr 12/05/23 13:37 12/05/23 14:58 Levofloxacin 500mg/100ml D5w IV 12/05/23 14:36 Infused STAT STA Infusion Levofloxacin/Dextrose Confirm 12/05/23 13:53 Levofloxacin 500mg/100ml D5w Administered 12/05/23 13:54 Dose 500 mg in 100 mls @ ud IV .STK-MED ONE Lorazepam 1 mg 12/05/23 12:24 12/05/23 13:14 Lorazepam 2 Mg/1 Ml 2 Mg Vial IV 12/05/23 12:25 1 mg STAT ONE Administration Lorazepam Confirm 12/05/23 13:10 Lorazepam 2 Mg/1 Ml 2 Mg Vial Administered 12/05/23 13:11 Dose 2 mg .ROUTE .STK-MED ONE Morphine Sulfate 4 mg 12/05/23 12:58 12/05/23 13:14 Morphine Sulfate 4 Mg/Ml Injection IV 12/05/23 12:59 4 mg STAT ONE Administration Morphine Sulfate Confirm 12/05/23 13:10 Morphine Sulfate 4 Mg/Ml Injection Administered 12/05/23 13:11 Dose 4 mg .ROUTE .STK-MED ONE Potassium Chloride 40 meq 12/05/23 13:41 12/05/23 13:55 Potassium Chloride Tab 10 Meq Tab PO 12/05/23 13:42 40 meq STAT ONE Administration Potassium Chloride Confirm 12/05/23 13:52 Potassium Chloride Tab 10 Meq Tab Administered 12/05/23 13:53 Dose 40 meq .ROUTE .STK-MED ONE Lab/Rad Data: Laboratory Result Diagrams 12/05/23 13:10 12/05/23 13:10 Laboratory Results 12/05/23 12/05/23 12/05/23 Range/Units 13:14 13:10 13:10 WBC (4.0-10.5) x10^3/uL RBC (4.1-5.4) x10^6/uL Hgb (12.0-16.0) g/dL Hct (35-47) % MCV (78-100) fL MCH (26-32) pg MCHC (32-36) g/dL RDW (11.5-14.0) % Plt Count (150-450) x10^3/uL MPV (7.5-11.0) fL Gran % (36.0-66.0) % Immature Gran % (Auto) (0.00-0.4) % Nucleat RBC Rel Count (0.00-0.1) % Eos # (Auto) (0-0.5) x10^3/uL Immature Gran # (Auto) (0.00-0.03) x10^3u/L Absolute Lymphs (auto) (1.0-4.6) x10^3/uL Absolute Monos (auto) (0.0-1.3) x10^3/uL Absolute Nucleated RBC (0.00-0.01) x10^3u/L Lymphocytes % (24.0-44.0) % Monocytes % (0.0-12.0) % Eosinophils % (0.00-5.0) % Basophils % (0.0-0.4) % Absolute Granulocytes (1.4-6.9) x10^3/uL Basophils # (0-0.4) x10^3/uL D-Dimer (0.0-0.50) mg/L Puncture Site RIGHT RADIAL pCO2 34 L (35-45) mmHg pO2 74 L (75-100) mmHg Base Excess -1.1 (-2.0-2.0) O2 Saturation 92.1 L (94-100) g/dF ABG pH 7.43 (7.35-7.45) ABG HCO3 22.6 (22-28) ABG O2 Sat (Measured) 96.9 (95-100) % Carmine Test YES A-a Gradient 140 a/A Ratio 0.35 Hemoglobin 14.7 Carboxyhemoglobin 4.2 (0.0-6.9) % THgb Methemoglobin 0.7 L (1.4-1.5) % Potassium 3.3 L (3.5-5.1) POC O2 Flow Rate 36 % Sodium (137-145) mmol/L Chloride (98-107) mmol/L Carbon Dioxide 23 (22-30) mmol/L Anion Gap (5-15) MEQ/L BUN (7-17) mg/dL Creatinine (0.52-1.04) mg/dL Estimated GFR ML/MIN Glucose (74-106) mg/dL Calcium (8.4-10.2) mg/dL Magnesium (1.6-2.3) mg/dL Total Bilirubin (0.2-1.3) mg/dL AST (14-36) U/L ALT (0-35) U/L Alkaline Phosphatase (38-126) U/L Troponin I (0.000-0.034) ng/mL NT-Pro-B Natriuret Pep (<300) pg/mL Serum Total Protein (6.3-8.2) g/dL Albumin (3.5-5.0) g/dL Urine Color Dark Yellow A (Yellow) Urine Appearance Cloudy A (Clear) Urine pH 5.5 (4.6-8.0) Ur Specific [place] 1.020 (1.005-1.030) Urine Protein Trace A (Negative) Urine Glucose (UA) Negative (Negative) mg/dL Urine Ketones Trace A (Negative) Urine Blood Small A (Negative) Urine Nitrite Negative (Negative) Urine Bilirubin Negative (Negative) Urine Urobilinogen 1.0 A (0.2) mg/dL Ur Leukocyte Esterase Moderate A (Negative) U Hyaline Cast (Auto) 11-20 (0-2) /LPF Urine Microscopic RBC 6-10 A (0-5) /HPF Urine Microscopic WBC 11-20 A (0-5) /HPF Ur Epithelial Cells Moderate A (None Seen) /HPF Urine Bacteria Few A (None Seen) /HPF Urine Culture Reflexed ORDERED SEPARATELY (NO) Influenza Type A Ag NEGATIVE (NEGATIVE) Influenza Type B Ag NEGATIVE (NEGATIVE) RSV (PCR) POSITIVE A (NEGATIVE) SARS-CoV-2 (PCR) NEGATIVE (NEGATIVE) 12/05/23 12/05/23 12/05/23 Range/Units 13:10 13:10 13:10 WBC (4.0-10.5) x10^3/uL RBC (4.1-5.4) x10^6/uL Hgb (12.0-16.0) g/dL Hct (35-47) % MCV (78-100) fL MCH (26-32) pg MCHC (32-36) g/dL RDW (11.5-14.0) % Plt Count (150-450) x10^3/uL MPV (7.5-11.0) fL Gran % (36.0-66.0) % Immature Gran % (Auto) (0.00-0.4) % Nucleat RBC Rel Count (0.00-0.1) % Eos # (Auto) (0-0.5) x10^3/uL Immature Gran # (Auto) (0.00-0.03) x10^3u/L Absolute Lymphs (auto) (1.0-4.6) x10^3/uL Absolute Monos (auto) (0.0-1.3) x10^3/uL Absolute Nucleated RBC (0.00-0.01) x10^3u/L Lymphocytes % (24.0-44.0) % Monocytes % (0.0-12.0) % Eosinophils % (0.00-5.0) % Basophils % (0.0-0.4) % Absolute Granulocytes (1.4-6.9) x10^3/uL Basophils # (0-0.4) x10^3/uL D-Dimer 0.22 (0.0-0.50) mg/L Puncture Site pCO2 (35-45) mmHg pO2 (75-100) mmHg Base Excess (-2.0-2.0) O2 Saturation (94-100) g/dF ABG pH (7.35-7.45) ABG HCO3 (22-28) ABG O2 Sat (Measured) (95-100) % Carmine Test A-a Gradient a/A Ratio Hemoglobin Carboxyhemoglobin (0.0-6.9) % THgb Methemoglobin (1.4-1.5) % Potassium 3.4 L (3.5-5.1) POC O2 Flow Rate % Sodium 135 L (137-145) mmol/L Chloride 105 (98-107) mmol/L Carbon Dioxide 22 (22-30) mmol/L Anion Gap 10.5 (5-15) MEQ/L BUN 9 (7-17) mg/dL Creatinine 0.89 (0.52-1.04) mg/dL Estimated GFR 74.2 ML/MIN Glucose 115 H (74-106) mg/dL Calcium 9.5 (8.4-10.2) mg/dL Magnesium 2.0 (1.6-2.3) mg/dL Total Bilirubin 1.40 H (0.2-1.3) mg/dL AST 19 (14-36) U/L ALT 14 (0-35) U/L Alkaline Phosphatase 75 (38-126) U/L Troponin I < 0.012 (0.000-0.034) ng/mL NT-Pro-B Natriuret Pep 261 (<300) pg/mL Serum Total Protein 7.9 (6.3-8.2) g/dL Albumin 4.7 (3.5-5.0) g/dL Urine Color (Yellow) Urine Appearance (Clear) Urine pH (4.6-8.0) Ur Specific [place] (1.005-1.030) Urine Protein (Negative) Urine Glucose (UA) (Negative) mg/dL Urine Ketones (Negative) Urine Blood (Negative) Urine Nitrite (Negative) Urine Bilirubin (Negative) Urine Urobilinogen (0.2) mg/dL Ur Leukocyte Esterase (Negative) U Hyaline Cast (Auto) (0-2) /LPF Urine Microscopic RBC (0-5) /HPF Urine Microscopic WBC (0-5) /HPF Ur Epithelial Cells (None Seen) /HPF Urine Bacteria (None Seen) /HPF Urine Culture Reflexed (NO) Influenza Type A Ag (NEGATIVE) Influenza Type B Ag (NEGATIVE) RSV (PCR) (NEGATIVE) SARS-CoV-2 (PCR) (NEGATIVE) 12/05/23 Range/Units 13:10 WBC 7.3 (4.0-10.5) x10^3/uL RBC 4.73 (4.1-5.4) x10^6/uL Hgb 14.6 (12.0-16.0) g/dL Hct 45.1 (35-47) % MCV 95.3 (78-100) fL MCH 30.9 (26-32) pg MCHC 32.4 (32-36) g/dL RDW 12.4 (11.5-14.0) % Plt Count 268 (150-450) x10^3/uL MPV 8.7 (7.5-11.0) fL Gran % 49.4 (36.0-66.0) % Immature Gran % (Auto) 0.1 (0.00-0.4) % Nucleat RBC Rel Count 0.0 (0.00-0.1) % Eos # (Auto) 0.01 (0-0.5) x10^3/uL Immature Gran # (Auto) 0.01 (0.00-0.03) x10^3u/L Absolute Lymphs (auto) 2.19 (1.0-4.6) x10^3/uL Absolute Monos (auto) 1.45 H (0.0-1.3) x10^3/uL Absolute Nucleated RBC 0.00 (0.00-0.01) x10^3u/L Lymphocytes % 29.9 (24.0-44.0) % Monocytes % 19.8 H (0.0-12.0) % Eosinophils % 0.1 (0.00-5.0) % Basophils % 0.7 (0.0-0.4) % Absolute Granulocytes 3.61 (1.4-6.9) x10^3/uL Basophils # 0.05 (0-0.4) x10^3/uL D-Dimer (0.0-0.50) mg/L Puncture Site pCO2 (35-45) mmHg pO2 (75-100) mmHg Base Excess (-2.0-2.0) O2 Saturation (94-100) g/dF ABG pH (7.35-7.45) ABG HCO3 (22-28) ABG O2 Sat (Measured) (95-100) % Carmine Test A-a Gradient a/A Ratio Hemoglobin Carboxyhemoglobin (0.0-6.9) % THgb Methemoglobin (1.4-1.5) % Potassium (3.5-5.1) POC O2 Flow Rate % Sodium (137-145) mmol/L Chloride (98-107) mmol/L Carbon Dioxide (22-30) mmol/L Anion Gap (5-15) MEQ/L BUN (7-17) mg/dL Creatinine (0.52-1.04) mg/dL Estimated GFR ML/MIN Glucose (74-106) mg/dL Calcium (8.4-10.2) mg/dL Magnesium (1.6-2.3) mg/dL Total Bilirubin (0.2-1.3) mg/dL AST (14-36) U/L ALT (0-35) U/L Alkaline Phosphatase (38-126) U/L Troponin I (0.000-0.034) ng/mL NT-Pro-B Natriuret Pep (<300) pg/mL Serum Total Protein (6.3-8.2) g/dL Albumin (3.5-5.0) g/dL Urine Color (Yellow) Urine Appearance (Clear) Urine pH (4.6-8.0) Ur Specific [place] (1.005-1.030) Urine Protein (Negative) Urine Glucose (UA) (Negative) mg/dL Urine Ketones (Negative) Urine Blood (Negative) Urine Nitrite (Negative) Urine Bilirubin (Negative) Urine Urobilinogen (0.2) mg/dL Ur Leukocyte Esterase (Negative) U Hyaline Cast (Auto) (0-2) /LPF Urine Microscopic RBC (0-5) /HPF Urine Microscopic WBC (0-5) /HPF Ur Epithelial Cells (None Seen) /HPF Urine Bacteria (None Seen) /HPF Urine Culture Reflexed (NO) Influenza Type A Ag (NEGATIVE) Influenza Type B Ag (NEGATIVE) RSV (PCR) (NEGATIVE) SARS-CoV-2 (PCR) (NEGATIVE) - Progress Progress: improved Air Movement: good Blood Culture(s) Obtained: Yes Antibiotics given: Yes Counseled pt/family regarding: lab results, diagnosis, need for follow-up, rad results, smoking cessation Medical Desision Making - Diagnostic Testing Diagnostic test were ordered, analyzed, and reviewed by me: Yes Radiological Interpretation: Interpreted by me, Reviewed by me - Risk of complications The pt has a mod risk of morbidity or mortality based on: Need for prescription drug management - Departure Departure Disposition: Home Clinical Impression: RSV (respiratory syncytial virus pneumonia) Urinary tract infection Qualifiers: Urinary tract infection type: acute pyelonephritis Qualified Code(s): N10 - Acute pyelonephritis Condition: Stable Critical Care Time: No Referrals: VELMA MOTTA MD [ACTIVE STAFF] - Follow up/PCP as directed Instructions: Urinary tract infections in adults, Respiratory Syncytial Virus, Adult (DC), RSV (Respiratory Syncytial Virus) Vaccine CDC Vaccine Information Statement (VIS), Respiratory Syncytial Virus (RSV) Preventive Antibody CDC Immunization Information Statement (IIS) Additional Instructions: Discharge/Care Plan TALHA JIMENEZ was seen on 12/05/23 in the Emergency Room. The patient was counseled regarding Diagnosis,Lab results, Imaging studies, need for follow up and when to return to the Emergency Room. Prescriptions given: Discharge Note I have spoken with the patient and/or caregivers. I have explained the patient's condition, diagnosis and treatment plan based on the information available to me at this time. I have answered the patient's and/or caregiver's questions and addressed any concerns. The patient and/or caregivers have as good understanding of the patient's diagnosis, condition and treatment plan as can be expected at this point. The vital signs have been stable. The patient's condition is stable and appropriate for discharge from the emergency department. The patient will pursue further outpatient evaluation with the primary care physician or other designated or consulting physician as outlined in the discha rge instructions. The patient and/or caregivers are agreeable to this plan of care and follow-up instructions have been explained in detail. The patient and/or caregivers have received these instruction. The patient/and or caregivers are aware that any significant change in condition or worsening of symptoms should prompt an immediate return to this or the closest emergency department or call 911. TALHA JIMENEZ was seen on 12/05/23 n the Emergency Room. At that time you were treated for an emergent condition, during your visit Laboratory, Radiology and/or other procedures may have been ordered. It is very important that you follow-up with your Primary Care Physician SHORTY RAJAN within the next 24-48 hours to review your Emergency Room visit and the final results of testing that was ordered. Some test results such as Urine Cultures, Blood Cultures, and other cultures if ordered will not be finalized for 24-48 hours. If you do not have a Primary Care Provider please call the medical records department at [phone] ext [phone] to obtain a copy of your results or you may sign into our patient portal to obtain these results by visiting us @ [email or web address] and completing the following steps: 1. Click on the Patient Portal link 2. Click the Patient Self Enrollment Link to complete the enrollment form and entering your 3. Once the enrollment form is completed you will receive an email with a temporary ID and password at the email address you provided. 4. Next choose a user name and password. Your user name must be at least 4 characters long and your password must be at least 4 characters long. 5. Choose a security question from the list and provide your answer to the question. If you already have signed into the Health Portal you may access your Health Care Information 17/05 by the following steps: 1. Login to our website @ [email or web address] 2. Enter your original user name and password. FAQS The [facility] Health Portal is an online tool that contains your Lab Results, Radiology Reports, Visit History, Discharge Instructions and Health Summary Lab and Radiology Results will not be available for 72 hours on the portal. The Portal is a secure site, passwords are encryted and URLs are re-written so they cannot be copied and pasted. You and authorized family members are the only ones who can access your Portal. Also there is a timeout feature that protects your information if you leave the Portal page open. If you have technical difficulty please use the Contact Us link on the page this will allow you to submit any questions you have regarding the Portal or you may contact the Medical Record Department at [phone]. Forms: Work/School Release Form Prescriptions: Smz/Tmp Ds Tablet [Bactrim Ds Tablet] 1 udtab PO BID #20 tablet Methylprednisolone Packet [Medrol Dosepack] 4 mg PO UD #21 packet
[2023-12-05] MEDS ORDERED: MORPHINE SULFATE 4 MG INJ ONE (13:10)
[2023-12-05] MEDS ORDERED: Ativan 2 MG/1 ML VIAL ONE (13:10)
[2023-12-05 13:11] LABS: Absolute Neutrophil Ct (ANC) 3.61 x10^3/uL (1.4-6.9); BASOPHIL % 0.7 % (0.0-0.4); Basophil (Absolute #) 0.05 x10^3/uL (0-0.4); Eosinophil % 0.1 % (0.00-5.0); Eosinophil (Absolute #) 0.01 x10^3/uL (0-0.5); Hematocrit 45.1 % (35-47); Hemoglobin 14.6 g/dL (12.0-16.0); IMMATURE GRAN # 0.01 x10^3u/L (0.00-0.03); IMMATURE GRAN % 0.1 % (0.00-0.4); Lymphocyte (Absolute #) 2.19 x10^3/uL (1.0-4.6); Lymphocytes % 29.9 % (24.0-44.0); Mean Cell Volume 95.3 fL (78-100); Mean Corpuscular Hemoglobin 30.9 pg (26-32); Mean Corpuscular Hgb Concent. 32.4 g/dL (32-36); Mean Platelet Volume 8.7 fL (7.5-11.0); Monocyte (Absolute #) 1.45 x10^3/uL (0.0-1.3); Monocytes % 19.8 % (0.0-12.0); Neutrophil % 49.4 % (36.0-66.0); Platelet Count 268 x10^3/uL (150-450); Red Blood Count 4.73 x10^6/uL (4.1-5.4); Red Cell Distribution Width 12.4 % (11.5-14.0); White Blood Count 7.3 x10^3/uL (4.0-10.5)
[2023-12-05] MEDS ORDERED: Sodium Chloride 0.9% 1000 ML 1,000 ML ONE (13:11)
[2023-12-05] MEDS: Sodium Chloride 0.9% 1000 ML 1,000 ML IV SCH (13:13)
[2023-12-05] MEDS: Ativan 2 MG/1 ML VIAL IV ONE (13:14)
[2023-12-05] MEDS: MORPHINE SULFATE 4 MG INJ IV ONE (13:14)
[2023-12-05 13:25] LABS: ALBUMIN 4.7 g/dL (3.5-5.0); ANION GAP 10.5 MEQ/L (5-15); BILIRUBIN,TOTAL 1.4 mg/dL (0.2-1.3); Calcium 9.5 mg/dL (8.4-10.2); Creatinine 1 0.89 mg/dL (0.52-1.04); EST GLOMERULAR FILTRATION RATE 74.2 ML/MIN; Potassium 3.4 mmol/L (3.5-5.1); Total Protein 7.9 g/dL (6.3-8.2)
[2023-12-05 13:34] LABS: Appearance Cloudy (Clear); Bacteria Few /HPF (None Seen); Bilirubin Negative (Negative); Blood Small (Negative); Epithelial Cells Moderate /HPF (None Seen); Glucose, Urine Negative (Negative); Ketones Trace (Negative); Leukocyte Esterase Moderate (Negative); Nitrite Negative (Negative); Ph 5.5 (4.6-8.0); Protein,Urine Dip Trace (Negative)
[2023-12-05 13:35] LABS: ADD URINE CULTURE? ORDERED SEPARATELY (NO)
[2023-12-05 13:37] LABS: NT PRO BNPII 261 pg/mL (<300); TROPONIN < 0.012 ng/mL (0.000-0.034)
[2023-12-05 13:39] LABS: ARTERIAL BLOOD GAS BASE EXCESS -1.1 (-2.0-2.0); ARTERIAL BLOOD GAS PCO2 34 mmHg (35-45); ARTERIAL BLOOD GAS PO2 74 mmHg (75-100); ARTERIAL BLOOD GAS pH 7.43 (7.35-7.45); HCO3- 22.6 (22-28)
[2023-12-05 13:40] LABS: A-aADO2 140; ABG POTASSIUM 3.3 (3.5-5.1); ARTERIAL BLD GAS O2 SATURATION 96.9 % (95-100); CARBON DIOXIDE 23 mEq/L (23-27); Methhemoglobin 0.7 % (1.4-1.5); paO2 pAO1 0.35
[2023-12-05 13:42] LABS: ABG HEMOGLOBIN 14.7; ARTERIAL BLOOD GAS FIO2 36 %; HGB O2 SAT 92.1 g/dF (94-100)
[2023-12-05 13:43] LABS: ABG SITE RIGHT RADIAL; ALLEN TEST OK? YES; CARBOXYHEMOGLOBIN 4.2 % THgb (0.0-6.9)
[2023-12-05 13:48] LABS: INFLUENZA A NEGATIVE (NEGATIVE); INFLUENZA B NEGATIVE (NEGATIVE); SARS-CoV-2 Xpert Express NEGATIVE (NEGATIVE)
[2023-12-05 13:51] LABS: RESPIRATORY SYNCTIAL VIRUS POSITIVE (NEGATIVE)
[2023-12-05] MEDS ORDERED: Klor Con ONE (13:52)
[2023-12-05] MEDS ORDERED: Levofloxacin 500MG/100ML D5W 500 MG/100 ML BAG IV ONE (13:53)
[2023-12-05] MEDS: Klor Con PO ONE (13:55)
[2023-12-05] MEDS: Levofloxacin 500MG/100ML D5W 500 MG/100 ML BAG IV STA (13:57)
[2023-12-05 14:50] VITALS: BP 89/56; PULSE 93; RESP 21
[2023-12-05 15:15] VITALS: O2SAT 98
--- NOTE | 2023-12-05 20:17 | XRAY ---
Indication: Short of breath and cough. Comparison: August 26, 2023 PA/lateral chest inflated and remains clear. Heart not enlarged again with left hilar calcified nodes. Bony thorax intact again with osteopenia and mild degenerative changes. Impression: Continued nonacute chest with chronic features.
== END 2023-12-05 15:15 | disposition home or self-care (01) ==
LOC: ED 12:21
DX: J12.1 Respiratory syncytial virus pneumonia (principal); N10 Acute pyelonephritis; R06.02 Shortness of breath; R50.9 Fever, unspecified; R51.9 Headache, unspecified; M54.9 Dorsalgia, unspecified; E78.5 Hyperlipidemia, unspecified; I10 Essential (primary) hypertension; Z79.52 Long term (current) use of systemic steroids; Z79.899 Other long term (current) drug therapy; Z28.310 Unvaccinated for COVID-19; Z72.0 Tobacco use
CPT/HCPCS: 0241U; 36000; 36415; 36600; 71046; 80053; 81001; 82375; 82803; 83735; 83880; 84484; 85025; 85379; 87040; 87086; 93005; 93041; 94640; 94760; 96374; 96375; 99284; J1956; J2060; J2270; A9270-GY

== ENCOUNTER 2024-04-22 16:20 | Emergency (ER) | payer OTHER ==
[2024-04-22 16:40] VITALS: BP 155/85; PULSE 78; RESP 16; TEMP 98.4; O2SAT 98
--- NOTE | 2024-04-22 17:13 | ERPHSYRPT ---
- History of Present Illness Time Seen by Provider: 04/22/24 17:10 Source: patient Exam Limitations: no limitations Patient Subjective Stated Complaint: Pt reports she woke up this morning and when she went to walk she started experiencing pain in right calf. States right calf is really tender to touch and is swollen compared to her normal. Triage Nursing Assessment: Pt alert and oriented x3. Respirations easy/nonlabored. Skin w/p/d. Right calf tender to touch, unable to palpate due to pts stated pain. Right calf appears to be swollen. Physician History: The patient, with a history of smoking, presents with acute onset of severe leg pain that started upon waking. They describe the pain as a 'knot that is on fire on the inside' and it radiates up the leg. The pain was so severe that they had to walk on their toes. They deny any recent injury or trauma to the leg. They also mention a planned knee replacement surgery. The patient denies taking any hormones or oral contraceptives. They are generally active and live in a tent. The patient's leg has turned a deep dark blue and purple color. They deny any redness or feeling of a tear in the muscle. They also deny any shortness of breath or chest pain. Method of Injury: unknown Occurred: this morning Quality: constant, sharpness, stabbing Severity of Pain-Max: severe Severity of Pain-Current: severe Lower Extremities Pain: leg: right (medial calf) Modifying Factors: Improves With: other (palpation). Worsens With: movement Associated Symptoms: none Allergies/Adverse Reactions: aspirin Allergy (Severe, Verified 04/22/24 17:33) anaphylaxis naproxen Allergy (Severe, Verified 04/22/24 17:33) breathing difficulties Penicillins Allergy (Severe, Verified 04/22/24 17:33) anaphylaxis gabapentin Allergy (Verified 04/22/24 17:33) mental changes ketorolac [From Toradol] Allergy (Verified 04/22/24 17:33) tramadol Allergy (Verified 04/22/24 17:33) hives, "whole body bloats" red dye Adverse Reaction (Verified 04/22/24 17:33) Home Medications: Albuterol Sulfate [Albuterol Sulfate Hfa] 2 puff PO Q4-6HPRN PRN 12/05/23 [History] Fluticasone Propion/Salmeterol [Advair 100-50 Diskus] 1 puff PO BID 12/05/23 [History] Fluticasone Propion/Salmeterol [Airduo Digihaler 55-14 Mcg] 1 puff PO DAILY 12/05/23 [History] Levocetirizine Dihydrochloride 1 tab PO DAILY 12/05/23 [History] Lisinopril 20 mg [Zestril 20 MG] 1 tab PO DAILY 12/05/23 [History] Montelukast Sodium 10 mg [Singulair 10 MG] 1 tab PO DAILY 12/05/23 [History] Omeprazole 1 cap PO DAILY 12/05/23 [History] Topiramate 25 mg [Topamax 25 MG] 1 cap PO DAILY 12/05/23 [History] Cholecalciferol (Vitamin D3) [Vitamin D3] 1 tab PO DAILY 03/13/24 [History] Famotidine 40 mg PO BID 03/13/24 [History] Hydrocodone/Acetaminophen [Hydrocodone-Acetamin 7.5-325] 1 each PO Q6H PRN PRN 03/13/24 [History] Tiotropium [place] Inhaler [Spiriva 18 Mcg/Cap Inhaler] 1 puff IH DAILY 03/13/24 [History] diphenhydrAMINE HCL [Banophen] 25 mg PO UD PRN 03/13/24 [History] Hx Tetanus, Diphtheria Vaccination/Date Given: Yes Hx Influenza Vaccination/Date Given: No Hx Pneumococcal Vaccination/Date Given: No Travel Risk - International Travel Have you traveled outside of the country in past 3 weeks: No - Emerging Infectious Disease Are you exhibiting symptoms associated with any current EIDs: No - Review of Systems All Other Systems: Reviewed and Negative - Past Medical History Pertinent Past Medical History: Yes Neurological History: Migraines ENT History: Other Cardiac History: High Cholesterol, Hypertension Respiratory History: Asthma, Bronchitis, COPD Musculoskeletal History: Degenerative Disk Disease, Other GI Medical History: Diverticulitis, GERD, Hernia History: No Pertinent History Female Reproductive Disorders: Breast Cancer, Ovarian Cancer, Uterine Cancer Other Medical History: hiatal hernia, states "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 cancers: tongue, right breast, uterine - Past Surgical History Past Surgical History: Yes Gastrointestinal: Cholecystectomy, Hernia Repair Musculoskeletal: Orthopedic Surgery Female Surgical History: Hysterectomy, Lumpectomy Other Surgical History: acl repair knee, tongue tumor removed, cervical ablation, hernia repair x2, lung and thyroid biopsy that was negative - Social History Smoking Status: Current every day smoker How long have you smoked: 50 years Exposure to second hand smoke: Yes Drug Use: none Patient Lives Alone: No (son & [id number]) - Social Determinants of Health Will the patient participate in the screening: Declined to provide - Nursing Vital Signs Nursing Vital Signs: Initial Vital Signs Temperature 98.4 F 04/22/24 16:28 Pulse Rate 78 04/22/24 16:28 Respiratory Rate 16 04/22/24 16:28 Blood Pressure 155/85 04/22/24 16:28 O2 Sat by Pulse Oximetry 98 04/22/24 16:28 Pain Scale Pain Intensity 8 - Physical Exam General Appearance: mild distress Legs Exam: right leg: swelling, other (vein engorgement, equisite tenderness medial calf, + Diaz sign) Neuro/Tendon Exam: normal sensation Mental Status Exam: alert, oriented x 3, cooperative Skin Exam: normal color, warm, dry SpO2 Interpretation: normal SpO2: 98 O2 Delivery: Room Air - Course Nursing assessment & vital signs reviewed: Yes Ordered Tests: Active Orders 24 hr Category Date Time Status Ultrasound Unilateral Extremities [VENOUS UNILAT/ Exams 04/22/24 17:02 Taken LIMITED EXTREMIT] [US] Stat Medication Summary Discontinued Medications Generic Name Dose Route Start Last Admin Trade Name Freq PRN Reason Stop Dose Admin Enoxaparin Sodium 80 mg 04/22/24 17:08 04/22/24 17:31 Enoxaparin Sodium 80 Mg/0.8 Ml Syringe SQ 04/22/24 17:09 80 mg STAT ONE Administration Enoxaparin Sodium Confirm 04/22/24 17:28 Enoxaparin Sodium 80 Mg/0.8 Ml Syringe Administered 04/22/24 17:29 Dose 80 mg SQ .STK-MED ONE Ketorolac Tromethamine 60 mg 04/22/24 17:09 04/22/24 17:32 Ketorolac Tromethamine 30 Mg/Ml Inj IM 04/22/24 17:10 Not Given STAT ONE Ketorolac Tromethamine Confirm 04/22/24 17:28 Ketorolac Tromethamine 30 Mg/Ml Inj Administered 04/22/24 17:29 Dose 60 mg .ROUTE .STK-MED ONE - Progress Progress: unchanged Progress Note: 04/22/24 17:13 Lower Extremity Pain: Sudden onset of severe pain in the lower extremity with visible engorged veins. High suspicion for deep vein thrombosis (DVT) given the patient's risk factors (age, smoking). No reported shortness of breath or chest pain. -Order lower extremity ultrasound to confirm diagnosis. -Initiate anticoagulation therapy with Lovenox. -Provide pain management. Pending Ultrasound Results: Depending on the results of the ultrasound, further management will be determined. If DVT is confirmed, the patient will likely need to continue anticoagulation therapy. If the ultrasound is negative, alternative diagnoses will need to be considered. -Follow-up on ultrasound results. -Adjust treatment plan as necessary based on results. No concern for PE at this time. 04/22/24 18:12 Venous duplex of the right lower extremity negative for DVT. Patient likely has a strain of her calf muscle with associated muscle spasm. Will send patient home with Flexeril to aid in discomfort with the spasm. Counseled pt/family regarding: diagnosis, rad results Medical Desision Making - Diagnostic Testing Diagnostic test were ordered, analyzed, and reviewed by me: Yes Radiological Interpretation: Reviewed by me, Teleradiologist Report - Risk of complications The pt has a mod risk of morbidity or mortality based on: Need for prescription drug management - Departure Departure Disposition: Home Clinical Impression: Strain of right calf muscle, Muscle spasm Condition: Good Critical Care Time: No Referrals: SHORTY RAJAN [Primary Care Provider] - Follow up/PCP as directed Prescriptions: Cyclobenzaprine HCl 10 mg PO TID PRN 10 Days #30 tablet PRN Reason: Muscle Spasms
[2024-04-22] MEDS ORDERED: TORAdol 30 mg Injection ONE (17:28)
[2024-04-22] MEDS ORDERED: ENOXAPARIN SODIUM SQ ONE (17:28)
[2024-04-22] MEDS: ENOXAPARIN SODIUM SQ ONE (17:31)
[2024-04-22] MEDS: TORAdol 30 mg Injection IM ONE (17:32)
--- NOTE | 2024-04-22 21:14 | XRAY ---
Indication: Calf pain. 2-dimensional sonogram and color Doppler imaging major venous vessels right leg performed. Comparison: None No thrombus seen in the examined deep venous vessels right leg including greater saphenous vein. Veins demonstrate normal compressibility. Venous waveforms are normal with and without augmentation. Impression: Right leg negative for DVT. Comment: Preliminary report was given.
== END 2024-04-22 18:50 | disposition home or self-care (01) ==
LOC: ED 16:20
DX: M62.831 Muscle spasm of calf (principal); M79.661 Pain in right lower leg; S86.911A Strain of unspecified muscle(s) and tendon(s) at lower leg level, right leg, initial encounter; R60.0 Localized edema; I10 Essential (primary) hypertension; E78.5 Hyperlipidemia, unspecified; F17.200 Nicotine dependence, unspecified, uncomplicated; Z85.3 Personal history of malignant neoplasm of breast; Z79.899 Other long term (current) drug therapy; Z85.43 Personal history of malignant neoplasm of ovary; Z85.42 Personal history of malignant neoplasm of other parts of uterus
CPT/HCPCS: 93971; 96372; 99282; J1650; J1885

== ENCOUNTER 2024-07-21 09:09 | Emergency (ER) | payer OTHER ==
[2024-07-21 09:34] VITALS: PULSE 82; TEMP 97.5; O2SAT 97
[2024-07-21] MEDS ORDERED: Norflex 60 MG/2 ML ONE (09:54)
[2024-07-21] MEDS: Norflex 60 MG/2 ML IM ONE (09:55)
[2024-07-21] MEDS ORDERED: MORPHINE SULFATE 4 MG INJ ONE (09:56)
[2024-07-21] MEDS: MORPHINE SULFATE 4 MG INJ IM ONE (09:56)
--- NOTE | 2024-07-21 10:00 | ERPHSYRPT ---
- History of Present Illness Time Seen by Provider: 07/21/24 09:35 Source: patient Exam Limitations: no limitations Patient Subjective Stated Complaint: Pt c/o of jose low back pain Triage Nursing Assessment: Pt brought over to the ER from [facility], elicia deal, rates pain as 9/10, appears to be having spasms due to the pain suddenly comes on and then begins to subside after about 15 minutes, pt states that she had been playing with her grandson Wednesday and then she couldn't get out of bed yesterday, denies any known injury, pt states that she has a degenerative spine and osteoporosis, pulses normal, skin n/w/d, doing PT on her left knee due to a total replacement in April Physician History: 58-year-old female with past medical history of chronic back pain presents to the ED with concerns of back pain which has been chronic but has been worse since yesterday. Patient states that she was playing with her grandchild as she thinks she might have accidentally pulled something when she tried to crab picker her grandchild. Pain is rated at 9 out of 10. Patient reports that she has not taken any medication today but she took some hydrocodone and muscle relaxants yesterday. Patient states that she has no loss of bowel or bladder function. She denies any weakness to her lower extremities. She denies any nausea, vomiting or diarrhea. Allergies/Adverse Reactions: aspirin Allergy (Severe, Verified 07/21/24 09:34) anaphylaxis naproxen Allergy (Severe, Verified 07/21/24 09:34) breathing difficulties Penicillins Allergy (Severe, Verified 07/21/24 09:34) anaphylaxis gabapentin Allergy (Verified 07/21/24 09:34) mental changes ketorolac [From Toradol] Allergy (Verified 07/21/24 09:34) tramadol Allergy (Verified 07/21/24 09:34) hives, "whole body bloats" red dye Adverse Reaction (Verified 07/21/24 09:34) Home Medications: Albuterol Sulfate [Albuterol Sulfate Hfa] 2 puff PO Q4-6HPRN PRN 12/05/23 [History] Fluticasone Propion/Salmeterol [Advair 100-50 Diskus] 1 puff PO BID 12/05/23 [History] Levocetirizine Dihydrochloride 5 mg PO DAILY 12/05/23 [History] Lisinopril 20 mg [Zestril 20 MG] 20 mg PO DAILY 12/05/23 [History] Montelukast Sodium 10 mg [Singulair 10 MG] 10 mg PO DAILY 12/05/23 [History] Omeprazole 40 mg PO DAILY 12/05/23 [History] Topiramate 25 mg [Topamax 25 MG] 25 mg PO DAILY 12/05/23 [History] Cholecalciferol (Vitamin D3) [Vitamin D3] 1 tab PO UD 03/13/24 [History] Famotidine 40 mg PO BID 03/13/24 [History] diphenhydrAMINE HCL [Banophen] 25 mg PO UD PRN 03/13/24 [History] Hx Tetanus, Diphtheria Vaccination/Date Given: Yes Hx Influenza Vaccination/Date Given: No Hx Pneumococcal Vaccination/Date Given: No Travel Risk - International Travel Have you traveled outside of the country in past 3 weeks: No - Emerging Infectious Disease Are you exhibiting symptoms associated with any current EIDs: No - Review of Systems Constitutional: No Symptoms Eyes: No Symptoms Ears, Nose, & Throat: No Symptoms Respiratory: No Symptoms Cardiac: No Symptoms, Chest Pain Abdominal/Gastrointestinal: No Symptoms Genitourinary Symptoms: No Symptoms Musculoskeletal: Back Pain Skin: No Symptoms Neurological: No Symptoms Psychological: No Symptoms All Other Systems: Reviewed and Negative - Past Medical History Pertinent Past Medical History: Yes Neurological History: Migraines ENT History: Other Cardiac History: High Cholesterol, Hypertension Respiratory History: Asthma, Bronchitis, COPD Endocrine Medical History: No Pertinent History Musculoskeletal History: Osteoarthritis GI Medical History: Diverticulitis, Diverticulosis, GERD, Hernia History: No Pertinent History Psycho-Social History: No Pertinent History Female Reproductive Disorders: Breast Cancer, Ovarian Cancer, Uterine Cancer Other Medical History: PREVIOUS L ACL RECONSTRUCTION 20+ YEARS AGO. DDD, DIVERTICULOSIS, GERD, HERNIA X 2, BREAST AND UTERINE CA, TONGUE CA, LUMG THYROID BX. PT. IS CURRENT EVERY DAY SMOKER. - Past Surgical History Past Surgical History: Yes Gastrointestinal: Cholecystectomy, Hernia Repair Musculoskeletal: Orthopedic Surgery Female Surgical History: Hysterectomy, Lumpectomy Other Surgical History: acl repair knee, tongue tumor removed, cervical ablation, hernia repair x2, lung and thyroid biopsy that was negative, zenon left knee replacement - Social History Smoking Status: Current every day smoker How long have you smoked: 50 years Exposure to second hand smoke: Yes Drug Use: none Patient Lives Alone: No (son & [id number]) - Social Determinants of Health Will the patient participate in the screening: Yes Do you worry about a steady place to live?: No Do you have any problems with any of the following?: No known problems In the past 12 months,have you had to go without utilities?: No Transportation Issues: No Has anyone in your support network made you feel unsafe?: No Have you or anyone in your house had to go without enough: No - Nursing Vital Signs Nursing Vital Signs: Initial Vital Signs Temperature 97.5 F 07/21/24 09:27 Pulse Rate 82 07/21/24 09:27 Blood Pressure 115/89 07/21/24 09:27 O2 Sat by Pulse Oximetry 97 07/21/24 09:27 Pain Scale Pain Intensity [Posterior 9 Distal Back] Pain Intensity 9 - Physical Exam General Appearance: no apparent distress Eye Exam: eyes nml inspection Ears, Nose, Throat Exam: normal ENT inspection Neck Exam: normal inspection, supple Respiratory Exam: normal breath sounds, lungs clear Cardiovascular Exam: regular rate/rhythm, normal heart sounds Gastrointestinal Exam: soft, normal bowel sounds, other (Abdomen nontender) Pelvic Exam: deferred Rectal Exam: deferred Back Exam: normal inspection, other (Thoracic and lumbar spinal and bilateral paraspinal tenderness between C7-L4, tenderness with range of motion, straight leg test bilateral lower extremities) Extremity Exam: normal inspection, normal range of motion Peripheral Pulses: dorsalis-pedis (R): 2+, dorsalis-pedis (L): 2+ Neurologic Exam: alert, oriented x 3, cooperative, physical fitness trainer II-XII nml as tested, normal mood/affect, nml station & gait, sensation nml Skin Exam: normal color, warm, dry SpO2 Interpretation: normal SpO2: 97 O2 Delivery: Room Air - Course Nursing assessment & vital signs reviewed: Yes Ordered Tests: Medication Summary Discontinued Medications Generic Name Dose Route Start Last Admin Trade Name Freq PRN Reason Stop Dose Admin Morphine Sulfate 4 mg 07/21/24 09:53 Morphine Sulfate 4 Mg/Ml Injection IM 07/21/24 09:54 STAT ONE Orphenadrine Citrate 60 mg 09/27/24 09:47 Orphenadrine Citrate 60 Mg/2 Ml Vial IM 07/21/24 09:48 STAT ONE - Progress Progress: improved Progress Note: 07/21/24 10:01 Patient seen and evaluated in presentation. Nurses note reviewed. Past medical record reviewed. Differential diagnosis includes but not limited to musculoskeletal back pain VS disc herniation VS spinal stenosis VS cauda equina VS spinal abscess VS other musculoskeletal dysfunction. Admitting patient has cauda equina because she has no loss of bowel or bladder function and she has no weakness to her lower extremities. I do not think patient has spinal abscess because she has no fever and no risk factors. Patient given morphine 4 mg IM as well as Benadryl 60 mg IM for symptomatic relief of the pain. Patient given prescription for prednisone 60 mg p.o. x 5 days. Patient advised to follow-up with her PCP for physical therapy management and further referral and management. Patient advised to continue to take her prescribed analgesics and muscle relax ants as prescribed for pain Patient agrees with plan. Patient discharged in stable condition. Counseled pt/family regarding: diagnosis Medical Desision Making - External Record(s) Reviewed Records reviewed as a part of evaluation & management: Inpatient - Discussion of managment Agreed on:: Treatment plan, need for follow-up - Departure Departure Disposition: Home Clinical Impression: Back pain Condition: Stable Critical Care Time: No Referrals: SHORTY RAJAN [Primary Care Provider] - Follow up/PCP as directed Instructions: Low Back Pain (DC) Additional Instructions: Follow up with PCP within 1 week for further management including physical therapy referral. Return to the ED if symptoms worsen. Prescriptions: Prednisone 10 mg [Deltasone 10 mg] 60 mg PO DAILY 5 Days #30 tablet
[2024-07-21 10:11] VITALS: BP 150/111
== END 2024-07-21 10:19 | disposition home or self-care (01) ==
LOC: ED 09:09
DX: M54.50 Low back pain, unspecified (principal); E78.5 Hyperlipidemia, unspecified; I10 Essential (primary) hypertension; Z79.52 Long term (current) use of systemic steroids; Z79.899 Other long term (current) drug therapy; Z72.0 Tobacco use
CPT/HCPCS: 96372; 99283; J2270; J2360